=== PATIENT | male | born 1960 | race Caucasian/White ===

== ENCOUNTER 2023-06-14 19:47 | Outpatient (OUT) | payer BC, SELFPAY | END 2023-06-14 19:48 | disposition home or self-care (01) | LOC: SLEEP 19:48 | PROVIDERS: PCP Psychiatry & Neurology Neurology; Visit Provider Psychiatry & Neurology Neurology | DX: G47.33 Obstructive sleep apnea (adult) (pediatric) (principal) | CPT/HCPCS: 95810 ==

== ENCOUNTER 2023-06-21 19:53 | Outpatient (OUT) | payer BC, SELFPAY ==
--- OUTSIDE RECORDS SUMMARY | 2023-06-21 19:58 | XMS_ITS | CCD ---
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 seconds. 5. Repeat as told by your health care provider. Repeat this exercise daily as told by your health care provider. Continue to do this exercise for at least 4?6 weeks, or for as long as told by your health care provider. You may be referred to a physical therapist who can help you learn more about how to do Kegel exercises. Depending on your condition, your health care provider may recommend: ? Varying how long you squeeze your muscles. ? Doing several sets of exercises every day. ? Doing exercises for several weeks. ? Making Kegel exercises a part of your regular exercise routine. This information is not intended to replace advice given to you by your health care provider. Make sure you discuss any questions you have with your health care provider. Document Revised: 08/07/2021 Document Reviewed: 08/07/2021 [employer] Patient Education ? 2022 [place]. Oncology Prostate Cancer Screening Prostate cancer screening is testing that is done to check for the presence of prostate cancer in men. The prostate gland is a walnut-sized gland that is located below the bladder and in front of the rectum in males. The function of the prostate is to add fluid to semen during ejaculation. Prostate cancer is one of the most common types of cancer in men. Who should have prostate cancer screening? Screening recommendations vary based on age and other risk factors, as well as between the professional organizations who make the recommendations. In general, screening is recommended if: ? You are age 50 to 70 and have an average risk for prostate cancer. You should talk with your health care provider about your need for screening and how often screening should be done. Because most prostate cancers are slow growing and will not cause , screening in this age group is generally reserved for men who have a 10- to 15-year life expectancy. ? You are younger than age 50, and you have these risk factors: ? Having a father, brother, or uncle who has been diagnosed with prostate cancer. The risk is higher if your family member's cancer occurred at an early age or if you have multiple family members with prostate cancer at an early age. ? Being a male who is Black or is of Ariel or sub-Saharan descent. In general, screening is not recommended if: ? You are younger than age 40. ? You are between the ages of 40 and 49 and you have no risk factors. ? You are 70 years of age or older. At this age, the risks that screening can cause are greater than the benefits that it may provide. If you are at high risk for prostate cancer, your health care provider may recommend that you have screenings more often or that you start screening at a younger age. How is screening for prostate cancer done? The recommended prostate cancer screening test is a blood test called the prostate-specific antigen (PSA) test. PSA is a protein that is made in the prostate. As you age, your prostate naturally produces more PSA. Abnormally high PSA levels may be caused by: ? Prostate cancer. ? An enlarged prostate that is not caused by cancer (benign prostatic hyperplasia, or BPH). This condition is very common in older men. ? A prostate gland infection (prostatitis) or urinary tract infection. ? Certain medicines such as male hormones (like gema (more content not included)... Normal [facility] Urology Office/Clinic Noteon 04-28-2023 Urology Office/Clinic Note Chief Complaint 1 year F/U with PSA HPI Staff 63 year old male here for 1 month with PSA. Previous DX: prostate cancer and ED. S/P RALP done 02/26/23, TRUS/BX done 10/16/22. Pt. taking Cialis 2.5mg daily. Stopped taking a week and a half ago, because his back was hurting him when he stopping taking this the pain went away PSA <0.1 done 04/19/23 Previous PSA 5.80 done 08/24/22. IPSS 17 MARIEL 1 Dysuria: _denies Incomplete bladder emptying: denies Hematuria: denies visible blood Frequency: every hour Urgency: _denies Nocturia: every hour nightly Stream: denies hesitation, normal stream Leaking: yes Post void dripping: a little bit Wearing pads/ Depends: pads wore daily changes every 1-2 hours Urge incontinence: _denies Stress incontinence: _yes Incontinence without Sensory Awareness: _denies Abdominal pain: _denies Flank pain: denies Sexual complaints: denies History of Present Illness Tests reviewed: reviewed UA, PSA I have reviewed the previous health record information and history for this patient from Dr. Perez. I have reviewed and verified the staff HPI to be accurate for this encounter. Review of Systems PHQ Score Initial Depression Screen Score: 0 SCORE ROS - Provider Constitutional: denies weight loss, denies hot flashes. Eyes: denies eye problems. Gastrointestinal: denies nausea, denies vomiting. Cardiovascular: denies chest pain or angina. Integumentary: no dryness Musculoskeletal: denies musculoskeletal symptoms. ENMT: denies otolaryngeal symptoms. Respiratory: no shortness of breath. Heme/Lymph: denies easy bleeding tendency, denies easy bruising tendency. Psychiatric: no confusion, no anxiety. Genitourinary: See HPI. Physical Exam Vitals & Measurements BP: 128/84 HT: 72 in HT: 182 cm WT: 132 kg WT: 290.4 lb BMI: 39.85 General Appearance: alert, no distress, well nourished, well developed male. Genitourinary: Flank Pain: none. Bladder: nonpalpable. Assessment/Plan 63 yo male with history of morbid obesity (BMI 40) patient of Dr. Ardon with favorable intermediate risk prostate cancer, cT2a, grade group 2, +5/15 cores including region of interest in the left peripheral zone at the mid gland, initial PSA 5.8 s/p RALP, BLPND 03/08/23. Pt is here with his today. 1. Prostate cancer (C61: Malignant neoplasm of prostate) PSA: 01/2022 - 4.60 05/11/22 - 4.80 & 13% 08/25/22 - 5.80 12/07/22 - 6.73 04/19/23 - <0.1 ALVINO 08/18/22 - 30-35 gms, Soft nodule at Lt base of prostate. MRI of prostate 09/28/22 - PI-RADS 4 - posterior aspect of the L peripheral zone at the level of the midgland measuring 13 x 7 mm. 47 cc prostate. S/p TRUS/bx 10/16/[address] Ardon- Initial path: GG1 in 4 cores including NIKOS Upstaged pathology through [facility] - [place] 7 (3+4), GG2 in 2 cores including NIKOS and GS 6, GG1 in 3 cores. 5/15 cores positive. Decipher testing - high risk. S/p RALP, BPLND 03/08/23 Pathology: pT2 N0Mx prostate acinar adenocarcinoma, Aidee score 3+4=7 Grade group 2 bilateral, involving approx 20% of the prostate tissue, focal cribriform pattern identified, +perineal invasion, negative margins, no EPE or SV invasion. Cystogram 03/15/23 positive for small contrast extravasation posterior left urethra. Repeat cystogram 03/22/23 near complete resolution of contrast extravasation however there is minimal persistence of contrast extravasation from the region of the prostatic urethra on the right. 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 Normal contour of urinary bladder without filling defect. Post void images demonstrate near complete excretion of contrast. -Crystal removed in office 03/29/23, voided all 100cc filled Today we discussed the PSA results. Advised pt current level is undetectable. Will continue to monitor. Discussed pt can f/u in 3 mos w/ a partner in our practice vs f/u in 6 mos to check PSA. Pt prefers close f/u in 3 mos. -PSA in 3 mos w/ [facility] (while on leave). I can see pt in 6 months for continued postop care. If PSA undetectable, cpnt PSA q6m Ordered: [id number] Measure Post Void residual urine and/or bladder capacity by US- non-imaging PSA Total 2. ED (erectile dysfunction) (N52.9: Male erectile dysfunction, unspecified) MARIEL 1 (12). Started on Cialis 2.5mg qd at prior OV. States he stopped taking this 1wk ago due to back pain. Re-discussed penile rehab and [facility] options. Discussed baseline ED, additional contributing factors (DM2, obesity, etc) and need for PDE-5i and [facility] to prevent loss length/girth. Lowest dose of Cialis. -Pt may retry cialis to ensure truly causing back pain (multiple reasons for this) -Penile rehab with [facility] Ordered: [id number] Measure Post Void residual urine and/or bladder capacity by US- non-imaging 3. Mixed incontinence (N39.46: Mixed incontinence) PVR today 177mL (none prior). IPSS 17 today (more content not included)... Normal [facility] Comment on above: Result Comment: Elec tronically Signed By: Chana Perez MD\.br\Date and Time Signed: 04/28/23 10:45 EST\.br\Electronically Co-Signed By: Leslie Powell\.br\Date and Time Co-Signed: 04/28/23 10:27 EST Pathology Noteon 04-26-2023 Pathology Note [id number]#[id number] Normal [facility] CHEMISTRYOrdered By: Tracey jamison on 04-19-2023 PSA Total ng/mL Low 0.1 - 3.5 ng/mL [facility] Chem S Comment on above: Interpretive Data: T he concentration of PSA determined by different manufacturers can vary due to differences in assay methods and reagent specificity. Values obtained from different assay methods cannot be used interchangeably. The methodology used for this result was chemiluminescence using [employer] PSA reagent. Consent for Treatmenton Consent for Treatment [id number] Normal [facility] PSA Totalon 04-19-2023 PSA Total <0.1 Low 0.1-3.5 [facility] Comment on above: Result Comment: The concentration of PSA determined by different manufacturers can vary due to differences in assay methods and reagent specificity. Values obtained from different assay methods cannot be used interchangeably. The methodology used for this result was chemiluminescence using [employer] PSA reagent. Performed By: #### 2 [id number], [id number] #### [facility] [address] [place] [address] Pathology Noteon 04-16-2023 Pathology Note [id number] [facility] Transfer Inon 04-01-2023 Transfer In [id number]#[id number] [facility] Formson 03-30-2023 Forms [id number]#[id number] [facility] Ambulatory Visit Summaryon 1 05-30-2022 Ambulatory Visit Summary EVELIA IBARRA :1960 Visit Date:03/29/2023 Ambulatory Visit Instructions Your Diagnosis Prostate cancer ED (erectile dysfunction) Your Care Team Attending Physician - Chana Perez MD Primary Care Physician - ELI Powell, LORRAINE Blanca This Is Your Medications List sulfamethoxazole-trimethop rim (Bactrim D.S. 800 mg-160 mg Tab) tadalafil (Cialis 2.5 mg oral tablet) Contact prescribing physician if questions or concerns amlodipine-atorvastatin (amLODIPine-atorvastatin 5 mg-40 mg Tab) dapagliflozin (Farxiga 10 mg oral tablet) ibuprofen (ibuprofen 600 mg Tab) metformin (metformin 500 mg Tab) rosuvastatin (rosuvastatin 10 mg Tab) [Image Removed: STOP]Stop taking these medications oxybutynin (oxybutynin 5 mg ER Tab) Procedures Performed Prostatectomy using robotic assistance (03/08/2023), Arthroplasty of knee (08/14/2020), Cholecystectomy, Colonoscopy, Excision of lesion of sweat gland. Discharge Vitals Heart Rate (Peripheral) 92 Blood Pressure 130/64 Height 72 in Height 182 cm Weight 290.4 lb Weight 132 kg BMI 39.85 What to do next Scheduled Follow-Up Appointments Wednesday 9:45 AM EST With: Chana Perez MD Where: [facility] Consent for Treatmenton 03-12 Consent for Treatment [id number] [facility] Patient Educationon 03-29-20 23 Patient Education Oncology Prostate Cancer The prostate is a small gland that produces fluid that makes up semen (seminal fluid). It is located below the bladder in men, in front of the rectum. Prostate cancer is the abnormal growth of cells in the prostate gland. What are the causes? The exact cause of this condition is not known. What increases the risk? You are more likely to develop this condition if: ? You are 65 years of age or older. ? You have a family history of prostate cancer. ? You have a family history of breast and ovarian cancer. ? You have genes that are passed from parent to child (inherited), such as BRCA1 and BRCA2. ? You have Christian syndrome. men and men of descent are diagnosed with prostate cancer at higher rates than other men. The reasons for this are not well understood and are likely due to a combination of genetic and environmental factors. What are the signs or symptoms? Symptoms of this condition include: ? Problems with urination. This may include: ? A weak or interrupted flow of urine. ? Trouble starting or stopping urination. ? Trouble emptying the bladder all the way. ? The need to urinate more often, especially at night. ? Blood in urine or semen. ? Persistent pain or discomfort in the lower back, lower abdomen, or hips. ? Trouble getting an erection. ? Weakness or numbness in the legs or feet. How is this diagnosed? This condition can be diagnosed with: ? A digital rectal exam. For this exam, a health care provider inserts a gloved finger into the rectum to feel the prostate gland. ? A blood test called a prostate-specific antigen (PSA) test. ? A procedure in which a sample of tissue is taken from the prostate and checked under a microscope (prostate biopsy). ? An imaging test called transrectal ultrasonography. Once the condition is diagnosed, tests will be done to determine how far the cancer has spread. This is called staging the cancer. Staging may involve imaging tests, such as a bone scan, CT scan, PET scan, or MRI. Stages of prostate cancer The stages of prostate cancer are as follows: ? Stage 1 (I). At this stage, the cancer is found in the prostate only. The cancer is not visible on imaging tests, and it is usually found by accident, such as during prostate surgery. ? Stage 2 (II). At this stage, the cancer is more advanced than it is in stage 1, but the cancer has not spread outside the prostate. ? Stage 3 (III). At this stage, the cancer has spread beyond the outer layer of the prostate to nearby tissues. The cancer may be found in the seminal vesicles, which are near the bladder and the prostate. ? Stage 4 (IV). At this stage, the cancer has spread to other parts of the body, such as the lymph nodes, bones, bladder, rectum, liver, or lungs. Prostate cancer grading Prostate cancer is also graded according to how the cancer cells look under a microscope. This is called the Aidee score and the total score can range from 6?10, indicating how likely it is that the cancer will spread (metastasize) to other parts of the body. The higher the score, the greater the likelihood that the cancer will spread. ? Aidee 6 or lower: This indicates that the cancer cells look similar to normal prostate cells (well differentiated). ? Aidee 7: This indicates that the cancer cells look somewhat similar to normal prostate cells (moderately differentiated). ? Aidee 8, 9, or 10: This indicates that the cancer cells look very different than normal prostate cells (poorly differentiated). How is this treated? Treatment for this condition depends on several factors, including the stage of the cancer, your age, personal preferences, and your overall health. Talk with your health care provider about treatment options that are recommended for you. Common treatments include: ? Observation for early stage prostate cancer (active surveillance). This involves having exams, blood tests, and in some cases, more biopsies. For some men, this is the only treatment needed. ? Surgery. Types of surgeries include: ? Open surgery (radical prostatectomy). In this surgery, a larger incision is made to remove the prostate. ? A laparoscopic radical prostatectomy. This is a surgery to remove the prostate and lymph nodes through several small incisions. It is often referred to as a minimally invasive surgery. ? A robotic radical prostatectomy. This is laparoscopic surgery to remove the prostate and lymph nodes with the help of robotic arms that are controlled by the surgeon. ? Cryoablation. This is surgery to freeze and destroy cancer cells. ? Radiation treatment. Types of radiation treatment include: ? External beam radiation. This type aims beams of radiation from outside the body at the prostate to destroy cancerous cells. ? Brachytherapy. This type uses radioactive needles, seeds, wires, or tubes that are implanted into the prostate gland. Like external be (more content not included)... Normal [facility] Urology Office/Clinic Noteon 03-29-2023 Urology Office/Clinic Note Chief Complaint 1 wk fu HPI Staff 62 year old male here for 1 week follow up with possible cath removal- Patient is po RALP 11/17/23 Patient denies any gross hematuria with catheter, states that it has been draining well. Does state that he is having pretty severe irritation at the tip of the penis from the catheter History of Present Illness Tests reviewed: reviewed cystogram. I have reviewed the previous health record information and history for this patient from Dr. Perez. I have reviewed and verified the staff HPI to be accurate for this encounter. There have been no associated fever, chills, flank pain, or blood in the urine. Denies any urinary infections since last encounter. Review of Systems PHQ Score Initial Depression Screen Score: 0 SCORE ROS - Provider Constitutional: denies weight loss, denies hot flashes. Eyes: denies eye problems. Gastrointestinal: denies nausea, denies vomiting. Cardiovascular: denies chest pain or angina. Integumentary: no dryness Musculoskeletal: denies musculoskeletal symptoms. ENMT: denies otolaryngeal symptoms. Respiratory: no shortness of breath. Heme/Lymph: denies easy bleeding tendency, denies easy bruising tendency. Psychiatric: no confusion, no anxiety. Genitourinary: See HPI. Physical Exam Vitals & Measurements HR: 92(Peripheral) BP: 130/64 HT: 72 in HT: 182 cm WT: 132 kg WT: 290.4 lb BMI: 39.85 General Appearance: alert, no distress, well nourished, well developed male. Genitourinary: Flank Pain: none. Bladder: nonpalpable. Assessment/Plan 63-year-old male with history of morbid obesity (BMI 40) patient of Dr. Ardon with favorable intermediate risk prostate cancer, cT2a, grade group 2, +5/15 cores including region of interest in the left peripheral zone at the mid gland, initial PSA 5.8 s/p RALP, BLPND 03/08/23. Portions of this record may have been created with voice recognition artificial intelligence software, specifically [employer] and or [employer]. Substitutions may have occurred due to the inherent limitations of voice recognition and artificial intelligence software. 1. Prostate cancer (C61: Malignant neoplasm of prostate) PSA: 01/2022 - 4.60 05/11/22 - 4.80 & 13% 08/25/22 - 5.80 [2] ALVINO 08/18/22 - 30-35 gms, Soft nodule at Lt base of prostate. [3] MRI of prostate 09/28/22 - PI-RADS 4 - posterior aspect of the L peripheral zone at the level of the midgland measuring 13 x 7 mm.[1] 47 cc prostate. S/p TRUS/bx 10/16/[address] Ardon- Initial path: GG1 in 4 cores including NIKOS Upstaged pathology through [facility] - [place] 7 (3+4), GG2 in 2 cores including NIKOS and GS 6, GG1 in 3 cores. 5/[address] Spears ordered Decipher testing - high risk. S/p RALP, BPLND 03/08/23 - Pathology: pT2 N0Mx prostate acinar adenocarcinoma, [place] score 3+4=7 Grade group 2 bilateral, involving approx 20% of the prostate tissue, focal cribriform pattern identified, +perineal invasion, negative margins, no EPE or SV invasion. Cystogram 03/15/23 positive for small contrast extravasation posterior left urethra. Repeat cystogram 03/22/23 near complete resolution of contrast extravasation however there is minimal persistence of contrast extravasation from the region of the prostatic urethra on the right. Pt presented to [facility] 03/20/23 w/ gross hematuria and clots in his crystal bag. Pt asked about genetic testing, discussed indicated if disease would metastasize. 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 Normal contour of urinary bladder without filling defect. Post void images demonstrate near complete excretion of contrast. -Crystal removed in office today, no complications, voided all 100cc filled Pt brought in family hx records. Hx does not seem contributory to pt's diagnosis. -Start Bactrim DS BID x 2 days prophy for crystal removal today -Cont restrictions. No heavy lifting for 3 more weeks -Timed voids, stool softeners, kegel exercises - Follow up in 1 month w/ PSA. Ordered: tadalafil, 2.5 mg = 1 tab(s), Oral, Daily, # 30 tab(s), Refills(s) 11, Pharmacy: [id number], 182, cm, 03/29/23 14:15:00 EST, Height/Length Dosing, 132, kg, 03/29/23 14:15:00 EST, Weight Dosing PSA Total XR Cystography Minimum 3 Views 2. ED (erectile dysfunction) (N52.9: Male erectile dysfunction, unspecified) MARIEL 12 - not a priority pre op Pt states he took Cialis in the past and experienced severe back pain. Unsure of dosage. States it was prescribed after a previous surgery and he took it daily. Risk and benefits of medication discussed for penile rehab. Patient would like to try. -Penile rehab literature provided today, [facility] literature provided -Start Cialis 2.5 mg daily. Ordered: tadalafil, 2.5 mg = 1 tab(s), Oral, Daily, # 30 tab(s), Refills(s) 11, Pharmacy: [id number] (more content not included)... Normal [facility] Comment on above: Result Comment: Elec tronically Signed By: Chana Perez MD\.br\Date and Time Signed: 03/29/23 16:57 EST\.br\Electronically Co-Signed By: Anna Tyler\.br\Date and Time Co-Signed: 03/29/23 15:13 EST XR Cystography Minimum 3 Vie wson 03-29-2023 XR Cystography Minimum 3 Views Exam Date/Time: 03/29/2023 10:19 EST Reason for Exam: C61;Other (please specify) Report IMPRESSION: TINY FOCUS OF CONTRAST PROJECTING OVER THE REGION OF THE PROSTATIC URETHRA TO THE RIGHT HAS NOT SIGNIFICANTLY CHANGED. WHILE THIS MAY REPRESENT A TINY FOCUS OF CONTRAST EXTRAVASATION, GIVEN LACK OF CHANGE URETHRAL DIVERTICULUM IS ALSO CONSIDERED. EXAMINATION: XR Cystography Minimum 3 Views HISTORY: History of prostatectomy. COMPARISON: Cystogram 03/22/2023 and 03/15/2023 TECHNIQUE: [facility] view of the pelvis was obtained. This was followed by injection of Isovue-300 acquisition of a frontal view, bilateral oblique views, and a frontal post void view. 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 Normal contour of urinary bladder without filling defect. Post void images demonstrate near complete excretion of contrast. Ordering Provider: Chana Perez FINAL REPORT Dictated: 03/29/2023 12:52 pm Tomer Gazra DO Signed (Electronic Signature): 03/29/2023 12:52 pm Signed by: Tomer Garza DO Transcribed by: NOAM Technologist: CAROLYN Technical Comments Contrast: Isovue 300 Contrast amount in ml's: 75 Radiation Dose: Ka,r in mGy = 55.60 DAP = 2182.33 [facility] Ambulatory Visit Summaryon 1 05-23-2022 Ambulatory Visit Summary EVELIA IBARRA :1960 Visit Date:03/22/2023 Ambulatory Visit Instructions Your Diagnosis Prostate cancer Your Care Team Attending Physician - Chana Perez MD Primary Care Physician - ELI Powell, LORRAINE Blanca This Is Your Medications List levofloxacin (Levaquin 500 mg Tab) Contact prescribing physician if questions or concerns amlodipine-atorvastatin (amLODIPine-atorvastatin 5 mg-40 mg Tab) dapagliflozin (Farxiga 10 mg oral tablet) ibuprofen (ibuprofen 600 mg Tab) metformin (metformin 500 mg Tab) oxybutynin (oxybutynin 5 mg ER Tab) rosuvastatin (rosuvastatin 10 mg Tab) Procedures Performed Prostatectomy using robotic assistance (03/08/2023), Arthroplasty of knee (08/14/2020), Cholecystectomy, Colonoscopy, Excision of lesion of sweat gland. Discharge Vitals Blood Pressure 120/83 Height 182 cm Height 72 in Weight 132 kg Weight 290.4 lb BMI 39.85 What to do next Scheduled Follow-Up Appointments Wednesday 2:00 PM EST With: Chana Perez MD Where: [facility] Consent for Treatmenton 03-12 Consent for Treatment [id number] [facility] Patient Educationon 03-22-20 Patient Education Oncology Prostate Cancer The prostate is a small gland that produces fluid that makes up semen (seminal fluid). It is located below the bladder in men, in front of the rectum. Prostate cancer is the abnormal growth of cells in the prostate gland. What are the causes? The exact cause of this condition is not known. What increases the risk? You are more likely to develop this condition if: ? You are 65 years of age or older. ? You have a family history of prostate cancer. ? You have a family history of breast and ovarian cancer. ? You have genes that are passed from parent to child (inherited), such as BRCA1 and BRCA2. ? You have Christian syndrome. men and men of descent are diagnosed with prostate cancer at higher rates than other men. The reasons for this are not well understood and are likely due to a combination of genetic and environmental factors. What are the signs or symptoms? Symptoms of this condition include: ? Problems with urination. This may include: ? A weak or interrupted flow of urine. ? Trouble starting or stopping urination. ? Trouble emptying the bladder all the way. ? The need to urinate more often, especially at night. ? Blood in urine or semen. ? Persistent pain or discomfort in the lower back, lower abdomen, or hips. ? Trouble getting an erection. ? Weakness or numbness in the legs or feet. How is this diagnosed? This condition can be diagnosed with: ? A digital rectal exam. For this exam, a health care provider inserts a gloved finger into the rectum to feel the prostate gland. ? A blood test called a prostate-specific antigen (PSA) test. ? A procedure in which a sample of tissue is taken from the prostate and checked under a microscope (prostate biopsy). ? An imaging test called transrectal ultrasonography. Once the condition is diagnosed, tests will be done to determine how far the cancer has spread. This is called staging the cancer. Staging may involve imaging tests, such as a bone scan, CT scan, PET scan, or MRI. Stages of prostate cancer The stages of prostate cancer are as follows: ? Stage 1 (I). At this stage, the cancer is found in the prostate only. The cancer is not visible on imaging tests, and it is usually found by accident, such as during prostate surgery. ? Stage 2 (II). At this stage, the cancer is more advanced than it is in stage 1, but the cancer has not spread outside the prostate. ? Stage 3 (III). At this stage, the cancer has spread beyond the outer layer of the prostate to nearby tissues. The cancer may be found in the seminal vesicles, which are near the bladder and the prostate. ? Stage 4 (IV). At this stage, the cancer has spread to other parts of the body, such as the lymph nodes, bones, bladder, rectum, liver, or lungs. Prostate cancer grading Prostate cancer is also graded according to how the cancer cells look under a microscope. This is called the Aidee score and the total score can range from 6?10, indicating how likely it is that the cancer will spread (metastasize) to other parts of the body. The higher the score, the greater the likelihood that the cancer will spread. ? Aidee 6 or lower: This indicates that the cancer cells look similar to normal prostate cells (well differentiated). ? Virden 7: This indicates that the cancer cells look somewhat similar to normal prostate cells (moderately differentiated). ? Aidee 8, 9, or 10: This indicates that the cancer cells look very different than normal prostate cells (poorly differentiated). How is this treated? Treatment for this condition depends on several factors, including the stage of the cancer, your age, personal preferences, and your overall health. Talk with your health care provider about treatment options that are recommended for you. Common treatments include: ? Observation for early stage prostate cancer (active surveillance). This involves having exams, blood tests, and in some cases, more biopsies. For some men, this is the only treatment needed. ? Surgery. Types of surgeries include: ? Open surgery (radical prostatectomy). In this surgery, a larger incision is made to remove the prostate. ? A laparoscopic radical prostatectomy. This is a surgery to remove the prostate and lymph nodes through several small incisions. It is often referred to as a minimally invasive surgery. ? A robotic radical prostatectomy. This is laparoscopic surgery to remove the prostate and lymph nodes with the help of robotic arms that are controlled by the surgeon. ? Cryoablation. This is surgery to freeze and destroy cancer cells. ? Radiation treatment. Types of radiation treatment include: ? External beam radiation. This type aims beams of radiation from outside the body at the prostate to destroy cancerous cells. ? Brachytherapy. This type uses radioactive needles, seeds, wires, or tubes that are implanted into the prostate gland. Like external be (more content not included)... Normal [facility] Urology Office/Clinic Noteon 03-22-2023 Urology Office/Clinic Note Chief Complaint 1 wk fu HPI Staff 1 week follow up with repeat cystogram and possible cath removal- Patient is po RALP 02/26/23 patient was seen at [facility] on 03/20 due to gross hematuria Patient states that the blood comes and goes- states it started darker and did get steinberg red color History of Present Illness Tests reviewed: reviewed cystogram. I have reviewed the previous health record information and history for this patient from Dr. Perez. I have reviewed and verified the staff HPI to be accurate for this encounter. There have been no associated fever, chills, flank pain. Denies any urinary infections since last encounter. Review of Systems PHQ Score Initial Depression Screen Score: 0 SCORE ROS - Provider Constitutional: denies weight loss, denies hot flashes. Eyes: denies eye problems. Gastrointestinal: denies nausea, denies vomiting. Cardiovascular: denies chest pain or angina. Integumentary: no dryness Musculoskeletal: denies musculoskeletal symptoms. ENMT: denies otolaryngeal symptoms. Respiratory: no shortness of breath. Heme/Lymph: denies easy bleeding tendency, denies easy bruising tendency. Psychiatric: no confusion, no anxiety. Genitourinary: See HPI. Physical Exam Vitals & Measurements BP: 120/83 HT: 72 in HT: 182 cm WT: 132 kg WT: 290.4 lb BMI: 39.85 General Appearance: alert, no distress, well nourished, well developed male. Genitourinary: Flank Pain: none. Bladder: nonpalpable. Assessment/Plan 62-year-old male with history of morbid obesity (BMI 40) patient of Dr. Ardon with recently diagnosed favorable intermediate risk prostate cancer, cT2a, grade group 2, +5/15 cores including region of interest in the left peripheral zone at the mid gland, initial PSA 5.8 s/p RALP, BLPND 03/08/23. Portions of this record may have been created with voice recognition artificial intelligence software, specifically [employer] and or [employer]. Substitutions may have occurred due to the inherent limitations of voice recognition and artificial intelligence software. 1. Prostate cancer (C61: Malignant neoplasm of prostate) PSA: 01/2022 - 4.60 05/11/22 - 4.80 & 13% 08/25/22 - 5.80 [2] ALVINO 08/18/22 - 30-35 gms, Soft nodule at Lt base of prostate. [3] MRI of prostate 09/28/22 - PI-RADS 4 - posterior aspect of the L peripheral zone at the level of the midgland measuring 13 x 7 mm.[1] 47 cc prostate. S/p TRUS/bx 10/16/[address] Ardon- Initial path: GG1 in 4 cores including NIKOS Upstaged pathology through [facility] - Virden 7 (3+4), GG2 in 2 cores including NIKOS and GS 6, GG1 in 3 cores. 5/[address] Spears ordered Decipher testing - high risk. S/p RALP, BPLND 03/08/23 - Pathology: pT2 N0Mx prostate acinar adenocarcinoma, Aidee score 3+4=7 Grade group 2 bilateral, involving approx 20% of the prostate tissue, focal cribriform pattern identified, +perineal invasion, negative margins, no EPE or SV invasion. Cystogram 03/15/23 positive for small contrast extravasation posterior left urethra. Repeat cystogram 03/22/23 near complete resolution of contrast extravasation however there is minimal persistence of contrast extravasation from the region of the prostatic urethra on the right. New STAT REYES applied at last visit, however pt states it broke. Pt provided more STAT REYES's today. Pt was started on Levaquin 500mg qd x 7 days last visit, completing course yet. Denies SEs. Pt presented to [facility] 03/20/23 w/ gross hematuria and clots in his crystal bag. Has been noticing leakage around catheter, especially after having a bowel movement. Pt to continue stool softeners and to try to avoid pushing when having a bowel movement. Pt asked about genetic testing, discussed indicated if disease would metastasize. Notes hip/leg pain BL laterally, no swelling. Right hand and feet are numb. Could be positional or due to diabetes. Pt to continue to remain active and walk at least 3x per day. -Cont restrictions. No heavy lifting x 6 wks -Apply KY jelly to tip of penis -Increase water intake -Oxybutynin prn -Keep catheter secure to avoid tugging, catheter to remain in place for one more week given minimal persistence of leak on cystogram -PSA 6-8 weeks from RALP Follow up in 1 week. Catheter to remain in place for the time being. Tight DM control. Follow-up With When Contact Information Chris JOHNSON, Chana Singh, URL, URO Additional Instructions: 1 week Patient Education Prostate Cancer I, Anna Jayson, personally scribed for Dr. Perez on 03/22/2023 13:55:07. . Documentation recorded by the scribe, Anna Tyler, accurately reflects the services(s) I performed and decisions made by me. Authenticated by Dr. Perez on 03/22/2023 17:46:30. 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 Normal [facility] Comment on above: Result Comment: Elec tronically Signed By: Chana Perez MD\.br\Date and Time Signed: 03/22/23 17:46 EST\.br\Electronically Co-Signed By: Anna Tyler\.br\Date and Time Co-Signed: 03/22/23 13:56 EST XR Cystography Minimum 3 Vie wson 03-22-2023 XR Cystography Minimum 3 Views Exam Date/Time: 03/22/2023 09:33 EST Reason for Exam: C61;Other (please specify) Report IMPRESSION: NEAR COMPLETE RESOLUTION OF CONTRAST EXTRAVASATION HOWEVER THERE IS MINIMAL PERSISTENCE OF CONTRAST EXTRAVASATION FROM THE REGION OF THE PROSTATIC URETHRA ON THE RIGHT. EXAMINATION: XR Cystography Minimum 3 Views HISTORY: History of prostate cancer. History of contrast extravasation from the prostatic urethra. COMPARISON: Cystography 03/15/2023 TECHNIQUE: [facility] view of the pelvis was obtained. This was followed by injection of approximately 200 mL of a mixture of normal saline and Isovue-300 and acquisition of a frontal view, bilateral oblique views, and a frontal post void view of the urinary bladder. FINDINGS: Significant improvement of contrast extravasation with persistent extravasation of a minimal amount of contrast from the region of the prosthetic urethra on the right. Normal contour of the urinary bladder, without filling defect. Post void images demonstrate complete excretion of contrast. Ordering Provider: Chana Perez FINAL REPORT Dictated: 03/22/2023 11:06 am Tomer Garza DO Signed (Electronic Signature): 03/22/2023 11:06 am Signed by: Tomer Garza DO Transcribed by: NOAM Technologist: SHAMA Technical Comments Contrast: Isovue 300 Contrast amount in ml's: 100 Radiation Dose: Kar in mGy = 48.80 DAP = 2112.65 Normal [facility] Consent for Treatmenton -0 Consent for Treatment [id number] Normal [facility] Discharge Instructionson Discharge Instructions [id number] Normal [facility] ED Clinical Summaryon 2022 ED Clinical Summary (Inserted Image. Capri ble to display) [place] [id number] ED Clinical Summary Person Information Name: EVELIA IBARRA Claudia/[facility] Age: 62 Years : 1960 Sex: Male Language: Estonian PCP: LORRAINE Aleman Marital Status: Visit Id: Visit Reason: Catheter check; Hematuria; BLEEDING INTO CATH BAG Speciality: Acuity: 3 Enc Type: Emergency Med Service: Emergency Arrival: 03/20/2023 13:35:42 Discharge: 03/20/2023 16:24:34 LOS: 000 02:49 Checkin: 03/20/2023 13:35:42 Checkout: 03/20/2023 16:24:34 Dispo Type: Home (Routine DC) EVENTS: Event Name Event Status Request Date/Time Start Date/Time Complete Date/Time Arrive Complete 03/20/2023 13:35:42 03/20/2023 13:35:42 03/20/2023 13:35:42 Document Home Meds Request 03/20/2023 13:35:42 Triage Complete 03/20/2023 13:35:42 03/20/2023 13:46:55 03/20/2023 13:46:55 Bed Assign Complete 03/20/2023 13:41:06 03/20/2023 13:41:06 03/20/2023 13:41:06 Dr Exam Complete 03/20/2023 13:41:06 03/20/2023 13:56:40 03/20/2023 13:56:40 RN Exam Complete 03/20/2023 13:41:06 03/20/2023 15:39:28 03/20/2023 15:39:28 30 Day Return Request 03/20/2023 13:46:56 Registration Complete 03/20/2023 13:56:40 03/20/2023 14:02:56 03/20/2023 14:02:56 Reg Complete Request 03/20/2023 14:02:56 Reg Bed Request Complete 03/20/2023 14:02:56 03/20/2023 14:02:56 03/20/2023 14:02:56 Patient Care Request 03/20/2023 14:12:20 Pending Labs Complete 03/20/2023 14:12:20 03/20/2023 14:49:23 Lab Complete 03/20/2023 14:12:20 03/20/2023 14:49:23 Urine Collect Complete 03/20/2023 14:12:20 03/20/2023 14:49:23 Discharge Complete 03/20/2023 16:03:06 03/20/2023 16:24:39 03/20/2023 16:24:39 Transfer Complete 03/20/2023 16:24:39 03/20/2023 16:24:39 03/20/2023 16:24:39 ADDRESS: [address] [place] [id number] [facility] DOC NOTES: MEDICAL INFORMATION: Prescriptions Given: Medications to Continue with No Changes Other Medications amlodipine-atorvastatin (amLODIPine-atorvastatin 5 mg-40 mg Tab) 1 Tablets By Mouth every day. dapagliflozin (Farxiga 10 mg oral tablet) 1 Tablets By Mouth every day. ibuprofen (ibuprofen 600 mg Tab) 1 Tablets By Mouth every day as needed as needed for pain. levofloxacin (Levaquin 500 mg Tab) 1 Tablets By Mouth every 24 hours for 7 Days. Refills: 0. metformin (metformin 500 mg Tab) 1 Tablets By Mouth every day. oxybutynin (oxybutynin 5 mg ER Tab) 1 Tablets By Mouth every day as needed Urinary discomfort. 1 to 2 tabs as needed for bladder spasms/catheter irritation. Refills: 0. rosuvastatin (rosuvastatin 10 mg Tab) 1 Tablets every day. PATIENT EDUCATION INFORMATION: Instructions: Hematuria, Adult Follow up: With: Address: When: Chana Perez [address], [place] [address], [facility] [address] [place] [address] [phone] Business (1) In 2 days 03/22/2023 Comments: Make sure to follow-up with Dr. Og as discussed. Return to the emergency room if the blood in the Crystal catheter recurs and does not clear, the Crystal catheter stops draining, abdominal pain, fever or any new symptoms. With: Address: When: LORRAINE REYNOLDS [address] [place] [address] [phone] Business (1) In 3 days DIAGNOSIS: 1:Hematuria Normal [facility] ED Note-Physicianon 03-20-20 ED Note-Physician Basic Information Time Seen: Christina Cabrera M.D. 03/20/2023 13:56 Chief Complaint patient presents with blood in urine with small clots that started yesterday. states that he had surgery to remove prostate on 03/08. denies fever or chills. denies pain. denies contact with urologist. apt on wednesday to re-evaluate need for crystal History of Present Illness The patient is a 62-year-old male past medical history of diabetes mellitus, hypertension, prostate cancer status post prostatectomy who presented to the emergency room blood in urine. The patient states that he has Crystal catheter and yesterday he noted blood in urine. He states it cleared out and this morning after getting a haircut there was blood in the Crystal catheter bag which was much darker than yesterday. The patient states it feels like his bladder is full. He denies any fever, denies any chills. Denies any nausea, denies any vomiting. The patient denies taking any blood thinners. He denies any other associated symptoms. Review of Systems Additional ROS info: Except as noted in the above Review of Systems and in the History of Present Illness all other systems have been reviewed and are negative or noncontributory. Physical Exam Vitals & Measurements T: 36.8 ?C(Oral) HR: 106(Peripheral) RR: 16 BP: 126/73 SpO2: 98% HT: 182 cm WT: 132.8 kg BMI: 40.09 General: alert, no acute distress Skin: warm, dry Head: no trauma, normocephalic Neck: Trachea midline Eye: normal conjunctiva, sclera clear, Cardiovascular: regular rate and rhythm Respiratory: Lungs CTA, respirations non labored, breath sounds equal, Gastrointestinal: soft, non distended, no tenderness, no guarding Extremities: no deformity, no trauma Neurological: Alert and oriented, speech normal, no focal neuro deficits Psychiatric: cooperative, affect appropriate for age, Medical Decision Making MEDICAL DECISION MAKING Number and Complexity of Problems Differential Diagnosis: [] [facility] Data External documents reviewed: [] My EKG interpretation: [] My CT interpretation: [] My X-ray interpretation: [] My Ultrasound interpretation: [] Decision rules/scores evaluated: [] Discussed with: [] Treatment and Disposition ED Course: The patient presented with blood in the Crystal catheter bag. The Crystal catheter does have blood-tinged urine however there is a clear urine in the tube. Bladder scan revealed 43 mL of the urine in the bladder. The patient is afebrile. The urine shows no infection other than hematuria. Will discharge patient home follow-up with urology since his urine has cleared from blood. The patient will follow-up on Wednesday with urology. He is instructed to return to the emergency room if the blood in the bag recurs and does not clear, the Crystal catheter stops draining, fever or any new symptoms. Shared decision making: [] Code status: [] Assessment/Plan 1. Hematuria (R31.9: Hematuria, unspecified) Orders: Bladder Scan UA With Cult Reflex Disposition Plan Patient Discharge Condition Stable, improved Discharge Disposition Discharge home Discharge Prescription List Prescriptions No active prescription medications Follow-up With When Contact Information Chana Perez In 2 days 03/22/2023 EST [address], [address] [address]- [phone] Business (1) Additional Instructions: Make sure to follow-up with Dr. Og as discussed. Return to the emergency room if the blood in the Crystal catheter recurs and does not clear, the Crystal catheter stops draining, abdominal pain, fever or any new symptoms. 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 Medications Inpatient No active inpatient medications Home amLODIPine-atorvastatin 5 mg-40 mg Tab, 1 tab(s), Oral, Daily Farxiga 10 mg oral tablet, 10 mg= 1 tab(s), Oral, Daily ibuprofen 600 mg Tab, 600 mg= 1 tab(s), Oral, Daily, PRN Levaquin 500 mg Tab, 500 mg= 1 tab(s), Oral, q24hr metformin 500 mg Tab, 500 mg= 1 tab(s), Oral, Daily oxybutynin 5 mg ER Tab, 5 mg= 1 tab(s), Oral, Daily, PRN rosuvastatin 10 mg Tab, 10 mg= 1 tab(s), Daily Allergies penicillins (Unsure) Social History Alcohol Current, 1-2 times per month, 02/15/2023 Substance Abuse - Denies Substance Abuse, 07/30/2020 Tobacco Cigars, 02/15/2023 Cigars or pipes daily within last 30 days Tobacco Use:. Never Smokele (more content not included)... Normal [facility] Comment on above: Result Comment: Elec tronically Signed By: Deborah Hodgson, Christina Carney\.br\Date and Time Signed: 03/20/23 16:05 EST ED Patient Education Noteon 03-20-2023 ED Patient Education Note Urology Hematuria, Adult Hematuria is blood in the urine. Blood may be visible in the urine, or it may be identified with a test. This condition can be caused by infections of the bladder, urethra, kidney, or prostate. Other possible causes include: ? Kidney stones. ? Cancer of the urinary tract. ? Too much calcium in the urine. ? Conditions that are passed from parent to child (inherited conditions). ? Exercise that requires a lot of energy. Infections can usually be treated with medicine, and a kidney stone usually will pass through your urine. If neither of these is the cause of your hematuria, more tests may be needed to identify the cause of your symptoms. It is very important to tell your health care provider about any blood in your urine, even if it is painless or the blood stops without treatment. Blood in the urine, when it happens and then stops and then happens again, can be a symptom of a very serious condition, including cancer. There is no pain in the initial stages of many urinary cancers. Follow these instructions at home: Medicines ? Take kxnc-naj-ryzzctj and prescription medicines only as told by your health care provider. ? If you were prescribed an antibiotic medicine, take it as told by your health care provider. Do not stop taking the antibiotic even if you start to feel better. Eating and drinking ? Drink enough fluid to keep your urine pale yellow. It is recommended that you drink 3?4 quarts (2.8?3.8 L) a day. If you have been diagnosed with an infection, drinking cranberry juice in addition to large amounts of water is recommended. ? Avoid caffeine, tea, and carbonated beverages. These tend to irritate the bladder. ? Avoid alcohol because it may irritate the prostate (in males). General instructions ? If you have been diagnosed with a kidney stone, follow your health care provider's instructions about straining your urine to catch the stone. ? Empty your bladder often. Avoid holding urine for long periods of time. ? If you are female: ? After a bowel movement, wipe from front to back and use each piece of toilet paper only once. ? Empty your bladder before and after sex. ? Pay attention to any changes in your symptoms. Tell your health care provider about any changes or any new symptoms. ? It is up to you to get the results of any tests. Ask your health care provider, or the department that is doing the test, when your results will be ready. ? Keep all follow-up visits. This is important. Contact a health care provider if: ? You develop back pain. ? You have a fever or chills. ? You have nausea or vomiting. ? Your symptoms do not improve after 3 days. ? Your symptoms get worse. Get help right away if: ? You develop severe vomiting and are unable to take medicine without vomiting. ? You develop severe pain in your back or abdomen even though you are taking medicine. ? You pass a large amount of blood in your urine. ? You pass blood clots in your urine. ? You feel very weak or like you might faint. ? You faint. Summary ? Hematuria is blood in the urine. It has many possible causes. ? It is very important that you tell your health care provider about any blood in your urine, even if it is painless or the blood stops without treatment. ? Take oklp-kie-tpcgemb and prescription medicines only as told by your health care provider. ? Drink enough fluid to keep your urine pale yellow. This information is not intended to replace advice given to you by your health care provider. Make sure you discuss any questions you have with your health care provider. Document Revised: 11/27/2020 Document Reviewed: 11/27/2020 [employer] Patient Education ? 2022 [place]. Normal [facility] ED Patient Summaryon 023 ED Patient Summary (Inserted Image. Capri ble to display) [address] [address] Patient Discharge Instructions Person Information Name: EVELIA IBARRA Age: 62 Years Arrival Date: 03/20/2023 13:35:42 Discharge Diagnosis: 1:Hematuria Primary Care Physician: LORRAINE Aleman Provider Information Primary Provider: Christina Cabrera M.D. Advanced Molding Machine Operator:None The exam and treatment you received in the Emergency Department were for an urgent problem and are not intended as complete care. It is important that you follow up with a doctor, nurse practitioner, or physician?s expanded function dental assistant for ongoing care. If your symptoms become worse or you do not improve as expected and you are unable to reach your usual health care provider, you should return to the Emergency Department. We are available 24 hours a day. EVELIA IBARRA has been given the following list of patient education materials, prescriptions and follow-up instructions: Follow-up Instructions: With: Address: When: Chana Perez [address] [place] [address], [place] [phone] Business (1) In 2 days 03/22/2023 Comments: Make sure to follow-up with Dr. Og as discussed. Return to the emergency room if the blood in the Crystal catheter recurs and does not clear, the Crystal catheter stops draining, abdominal pain, fever or any new symptoms. With: Address: When: [place] [address] [phone] Business (1) In 3 days In the event that this physician does not participate in your insurance network, please consult with your insurance company to find a nearby participating provider. Patient Education Materials: Hematuria, Adult A MESSAGE TO ALL PATIENTS REGARDING OPIOIDS PRESCRIPTION OPIOIDS: WHAT YOU NEED TO KNOW Prescription opioids can be used to help relieve kfnowxzz-bs-jotvpb pain and are often prescribed following a surgery or injury, or for certain health conditions. These medications can be an important part of the treatment but also come with serious risks. It is important to work with your healthcare provider to make sure you are getting the safest, most effective care. WHAT ARE THE RISKS AND SIDE EFFECTS OF OPIOID USE? Prescription opioids carry serious risks of addiction and overdose, especially with prolonged use. An opioid overdose, often marked by slowed breathing, can cause sudden . The use of prescription opioids can have a number of side effects as well, even when taken as directed: ? Tolerance?meaning you might need to take more of the medication for the same pain relief ? Physical dependence?meaning you have symptoms of withdrawal when a medication is stopped ? Increased sensitivity to pain ? Constipation ? Nausea, vomiting, and dry mouth ? Sleepiness and dizziness ? Confusion ? Depression ? Low levels of testosterone that can result in lower sex drive, energy, and strength ? Itching and sweating RISKS ARE GREATER WITH: ? History of drug misuse, substance use disorder, or overdose ? Mental health conditions (such as depression or anxiety) ? Sleep apnea ? Older age (65 years and older) ? Avoid alcohol while taking prescription opioids. Also, unless specifically advised by your health care provider, medications to avoid include: ? Benzodiazepines (such as Xanax or Valium) ? Muscle relaxants (such as Soma or Flexeril) ? Hypnotics (such as Ambien or Lunesta) ? Other prescription opioids KNOW YOUR OPTIONS Talk to your health care provider about ways to manage your pain that don?t involve prescription opioids. Some of these options may actually work better and have fewer risks and side effects. Options may include: ? Pain relievers such as acetaminophen, ibuprofen, and naproxen ? Some medication that are also used for depression or seizures ? Physical therapy and exercise ? Cognitive behavioral therapy, a psychological, goal-directed approach, in which patients learn how to modify physical, behavioral, and emotional triggers of pain and stress. IF YOU ARE PRESCRIBED OPIOIDS FOR PAIN: ? Never take opioids in greater amounts or more often than prescribed. ? Follow up with your primary health care provider. o Work together to create a plan on how to manage your pain. o Talk about ways to help manage your pain that don?t involve prescription opioids. o Talk about any and all concerns and side effects. ? Help prevent misuse and abuse o Never sell or share prescription opioids. o Never use another person?s prescription opioids. ? Store prescription opioids in a secure place and out of reach of others (this may include visitors, children, friends, and family). ? Safely dispose of unused prescription opioids: Find your community drug take-back program or your pharmacy mail-back program, or flush them down the toilet, following guidance from the Food and D (more content not included)... Normal [facility] UA With Cult Reflexon 2022 Bacteria LM Ql (Urine sed) TRACE Normal Trace [facility] Comment on above: Performed By: #### 1 [id number] ####[facility] [address] [place] [address] Bilirubin Ql (U) Negative Normal Negative [facility] Comment on above: Performed By: #### 1 [id number] ####[facility] [address] [place] [address] Clarity (U) CLOUDY Abnormal Clear [facility] Comment on above: Performed By: #### 1 [id number] ####[facility] [address] [place] [address] Color (U) YELLOW Normal Yellow [facility] Comment on above: Performed By: #### 1 [id number] ####[facility] [address] [place] [address] Epithelial cells.squamous LM.HPF (Urine sed) [#/Area] 0-2 Normal 0-2 [facility] Comment on above: Performed By: #### 1 [id number] ####[facility] [address] [place] [address] Glucose Test strip (U) [Mass/Vol] 3+ Abnormal Negative [facility] Comment on above: Performed By: #### 1 [id number] ####[address] [address] Hemoglobin Ql (U) 3+ Abnormal Negative [facility] Comment on above: Performed By: #### 1 [id number] ####[address] [address] Ketones (U) [Mass/Vol] Negative Normal Negative [facility] Comment on above: Performed By: #### 1 [id number] ####[address] [address] [place].plasma/[place] .RBC (Bld) [Mass ratio] >30 Abnormal 0-3 [facility] Comment on above: Performed By: #### 1 [id number] ####[address] [address] Mucus Ql (Urine sed) TRACE Normal [facility] Comment on above: Performed By: #### 1 [id number] ####[address] [address] Nitrite Ql (U) Negative Normal Negative [facility] Comment on above: Performed By: #### 1 [id number] ####[address] [address] pH (U) 6.0 [pH] Invalid Interpretation Code 5.0-9.0 [facility] Comment on above: Performed By: #### 1 [id number] ####[address] [address] Protein (U) [Mass/Vol] Negative Normal Negative [facility] Comment on above: Performed By: #### 1 [id number] ####[address] [address] Specific gravity (U) [Rel density] <=1.005 Invalid Interpretation Code 1.005-1.03 0 [facility] Comment on above: Performed By: #### 1 [id number] ####[facility] [address] [place] [address] Type of Urine collection method Catheter Normal [facility] Comment on above: Performed By: #### 1 [id number] ####[facility] [address] [place] [address] Urobilinogen Qn (U) 0.2 {Roxana'U}/dL Normal 0.0-1.0 [facility] Comment on above: Performed By: #### 1 [id number] ####[facility] [address] [place] [address] WBC Auto Ql (U) Negative Normal Negative [facility] Comment on above: Performed By: #### 1 [id number] ####[facility] [address] [place] [address] WBC LM.HPF (Urine sed) [#/Area] 0-5 Normal 0-5 [facility] Comment on above: Performed By: #### 1 [id number] ####[facility] [address] [place] [address] URINALYSISOrdered By: Bassem Murphy on 03-20-2023 Bacteria LM Ql (Urine sed) Trace /HPF Normal Trace/HPF [facility] UA Auto SS Bilirubin Ql (U) Negative (03/20/23 2:28 PM) Normal Negative [facility] UA Auto SS Clarity (U) Cloudy *ABN* (03/20/23 2:28 PM) Invalid Interpretation Code Clear [facility] UA Auto SS Color (U) Yellow (03/20/23 2:28 PM) Normal Yellow [facility] UA Auto SS Epithelial cells.squamous LM.HPF (Urine sed) [#/Area] 0-2 /HPF Normal 0-2/HPF [facility] UA Auto SS Glucose Test strip (U) [Mass/Vol] 3+ *ABN* (03/20/23 2:28 PM) Invalid Interpretation Code Negative [facility] UA Auto SS Hemoglobin Ql (U) 3+ *ABN* (03/20/23 2:28 PM) Invalid Interpretation Code Negative [facility] UA Auto SS Ketones (U) [Mass/Vol] Negative (03/20/23 2:28 PM) Normal Negative [facility] UA Auto SS [place].plasma/[place] .RBC (Bld) [Mass ratio] >30 /HPF Invalid Interpretation Code 0-3/HPF [facility] UA Auto SS Mucus Ql (Urine sed) Trace (03/20/23 2:28 PM) Normal [facility] UA Auto SS Nitrite Ql (U) Negative (03/20/23 2:28 PM) Normal Negative [facility] UA Auto SS pH (U) 6.0 *NA* (03/20/23 2:28 PM) Invalid Interpretation Code 5.0 - 9.0 [facility] UA Auto SS Protein (U) [Mass/Vol] Negative (03/20/23 2:28 PM) Normal Negative [facility] UA Auto SS Specific gravity (U) [Rel density] <=1.005 *NA* (03/20/23 2:28 PM) Invalid Interpretation Code 1.005 - 1.030 [facility] UA Auto SS UA Spec Desc Catheter (03/20/23 2:28 PM) Normal [facility] UA Auto SS Urobilinogen Qn (U) 0.1450151 {Roxana'U}/dL Normal 0.0 - 1.0 EU/dL [facility] UA Auto SS WBC Auto Ql (U) Negative (03/20/23 2:28 PM) Normal Negative [facility] UA Auto SS WBC LM.HPF (Urine sed) [#/Area] 0-5 /HPF Normal 0-5/HPF [facility] UA Auto SS Ambulatory Visit Summaryon 1 05-16-2022 Ambulatory Visit Summary STACEYANAMIKA RAMIREZJANELLE Cade :1960 Visit Date:03/15/2023 Ambulatory Visit Instructions Your Diagnosis Prostate cancer Your Care Team Attending Physician - Chris JOHNSON, Chana Singh Primary Care Physician - ELI Powell, LORRAINE Blanca This Is Your Medications List amlodipine-atorvastatin (amLODIPine-atorvastatin 5 mg-40 mg Tab) dapagliflozin (Farxiga 10 mg oral tablet) ibuprofen (ibuprofen 600 mg Tab) metformin (metformin 500 mg Tab) oxybutynin (oxybutynin 5 mg ER Tab) rosuvastatin (rosuvastatin 10 mg Tab) Procedures Performed Prostatectomy using robotic assistance (03/08/2023), Arthroplasty of knee (08/14/2020), Cholecystectomy, Colonoscopy, Excision of lesion of sweat gland. Discharge Vitals Height 182 cm Height 72 in Weight 132 kg Weight 290.4 lb BMI 39.85 What to do next Scheduled Follow-Up Appointments Wednesday 1:00 PM EST With: Chana Perez MD Where: [facility] Consent for Treatmenton Consent for Treatment [id number]#[id number] [facility] Patient Educationon 03-15-20 23 Patient Education Urology Indwelling Urinary Catheter Care, Adult An indwelling urinary catheter is a thin, flexible tube that is placed into the bladder to help drain urine out of the body. The catheter is inserted into the urethra. The urethra is the part of the body that drains urine from the bladder. Urine drains from the catheter into a drainage bag outside of the body. Taking good care of your catheter will keep it working properly and help to prevent problems from developing. What are the risks? ? Bacteria may get into your bladder and cause a urinary tract infection. ? Urine flow can become blocked. This can happen if the catheter is not working correctly, or if you have sediment or a blood clot in your bladder or catheter. ? Tissue near the catheter may become irritated and may bleed. How to wear your catheter and your drainage bag Supplies needed ? Adhesive tape or a leg strap. ? Alcohol wipe or soap and water (if you use tape). ? A clean towel (if you use tape). ? Overnight drainage bag. ? Smaller drainage bag (leg bag). Wearing your catheter and bag Use adhesive tape or a leg strap to attach your catheter to your leg. ? Make sure the catheter is not pulled tight. ? If a leg strap gets wet, replace it with a dry one. ? If you use adhesive tape: 1. Use an alcohol wipe or soap and water to wash off any stickiness on your skin where you had tape before. 2. Use a clean towel to pat-dry the area. 3. Apply the new tape. You should have received a large overnight drainage bag and a smaller leg bag that fits underneath clothing. ? You may wear the overnight bag at any time, but you should not wear the leg bag at night. ? Make sure the overnight drainage bag is always lower than the level of your bladder, but do not let it touch the floor. Before you go to sleep, hang the bag inside a wastebasket that is covered by a clean plastic bag. ? Secure the leg bag according to business writer's instructions. This may be above or below the knee, depending on the length of the tubing. Make sure that: ? The leg bag is below the bladder. ? The tubing does not have loops or too much tension. How to care for the skin around the catheter Supplies needed ? A clean washcloth. ? Water and mild soap. ? A clean towel. Caring for your skin and catheter ? Every day, use a clean washcloth and soapy water to clean the skin around your catheter. 1. Wash your hands with soap and water. 2. Wet a washcloth in warm water and mild soap. 3. Clean the skin around your urethra. ? If you are female: ? Use one hand to gently spread the folds of skin around your vagina (labia). ? With the washcloth in your other hand, wipe the inner side of your labia on each side. Do this in a ruqfx-lx-eyfy direction. ? If you are male: ? Use one hand to pull back any skin that covers the end of your penis (foreskin). ? With the washcloth in your other hand, wipe your penis in small circles. Start wiping at the tip of your penis, then move outward from the catheter. ? Move the foreskin back in place, if needed. 4. With your free hand, hold the catheter close to where it enters your body. Keep holding the catheter during cleaning so it does not get pulled out. 5. Use your other hand to clean the catheter with the washcloth. ? Only wipe downward on the catheter, toward the bag. ? Do not wipe upward toward your body, because that may push bacteria into your urethra and cause infection. 6. Use a clean towel to pat-dry the catheter and the skin around it. Make sure to wipe off all soap. 7. Wash your hands with soap and water. ? Shower every day. Do not take baths. ? Do not use cream, ointment, or lotion on the area where the catheter enters your body, unless your health care provider tells you to do that. ? Do not use powders, sprays, or lotions on your genital area. ? Check your skin around the catheter every day for signs of infection. Check for: ? Redness, swelling, or pain. ? Fluid or blood. ? Warmth. ? Pus or a bad smell. How to empty the drainage bag Supplies needed ? Rubbing alcohol. ? Gauze pad or cotton ball. ? Adhesive tape or a leg strap. Emptying the bag Empty your drainage bag (your overnight drainage bag or your leg bag) when it is ??? full, or at least 2?3 times a day. Clean the drainage bag according to the business writer's instructions or as told by your health care provider. 1. Wash your hands with soap and water. 2. Detach the drainage bag from your leg. 3. Hold the drainage bag over the toilet or a clean container. Make sure the drainage bag is lower than your hips and bladder. This stops urine from going back into the tubing and into your bladder. 4. Open the pour spout at the bottom of the bag. 5. Empty the urine into the toilet or container. Do not let the pour spout touch any surface. This precaution is important to prevent bacteria from getting (more content not included)... Normal [facility] Pre-Certification Formon Pre-Certification Form [id number]#[id number] Normal [facility] Urology Office/Clinic Noteon 03-15-2023 Urology Office/Clinic Note HPI Staff 62 year old male here for follow up RALP and Bilateral pelvic lymph node dissection on 02/26/23. Cystogram 03/15/23. Previous DX: prostate cancer and BPH w/LUTS. S/P TRUS/BX done 10/16/22, MRI of prostate done 09/28/22. Pt. states no blood in the catheter bag. Pt. states very small amount of leaking around catheter. History of Present Illness Had some bladder fullness and spasms a few days ago. Urine has been clear yellow. No blood today. Notes few scant clots over the weekend. Denies nausea, vomiting, constipation or uncontrolled pain. Last used pain pills postop day 3. Review of Systems PHQ Score Initial Depression Screen Score: 0 SCORE ROS - Provider Constitutional: denies weight loss, denies hot flashes. Eyes: denies eye problems. Gastrointestinal: denies nausea, denies vomiting. Cardiovascular: denies chest pain or angina. Integumentary: no dryness Musculoskeletal: denies musculoskeletal symptoms. ENMT: denies otolaryngeal symptoms. Respiratory: no shortness of breath. Heme/Lymph: denies easy bleeding tendency, denies easy bruising tendency. Psychiatric: no confusion, no anxiety. Genitourinary: See HPI, catheter in place. Physical Exam Vitals & Measurements HT: 72 in HT: 182 cm WT: 132 kg WT: 290.4 lb BMI: 39.85 General Appearance: alert, no distress, well nourished, well developed male. Abdomen: Well-healing laparoscopic incisions, clean dry intact with skin glue. Nontender, nondistended. Genitourinary: normal scrotum, normal testes, normal meatus , normal epididymis, normal vas deferens/spermatic cord. 18Fr Crystal catheter to gravity with light clear yellow urine. Irrigates easily without clots. Flank Pain: none. Bladder: nonpalpable. Assessment/Plan 62-year-old male with history of morbid obesity (BMI 40) patient of Dr. Ardon with recently diagnosed favorable intermediate risk prostate cancer, cT2a, grade group 2, +5/15 cores including region of interest in the left peripheral zone at the mid gland, initial PSA 5.8 s/p RALP, BLPND 03/08/23, here for postop appt 1. Prostate cancer (C61: Malignant neoplasm of prostate) PSA: 01/2022 - 4.60 05/11/22 - 4.80 & 13% 08/25/22 - 5.80 [2] ALVINO 08/18/22 - 30-35 gms, Soft nodule at Lt base of prostate. [3] MRI of prostate 09/28/22 - PI-RADS 4 - posterior aspect of the L peripheral zone at the level of the midgland measuring 13 x 7 mm.[1] 47 cc prostate. S/p TRUS/bx 10/16/[address] Ardon- Initial path: GG1 in 4 cores including NIKOS Upstaged pathology through [facility] [place] [facility] (3+4), GG2 in 2 cores including NIKOS and GS 6, GG1 in 3 cores. 5/[address] Spears ordered Decipher testing - high risk. s/p RALP, BPLND 03/08/23 - Pathology: pT2 N0Mx prostate acinar adenocarcinoma, [place] score 3+4=7 Grade group 2 bilateral, involving approx 20% of the prostate tissue, focal cribriform pattern identified, +perineal invasion, negative margins, no EPE or SV invasion. Discussed Stage IIB prostate adenocarcinoma pathology findings. Discussed surveillance including PSA in 6 to 8 weeks with continued monitoring every 6-12 months x 5 years, then annually thereafter. Healing well postop. Did have bowel movement few days ago noticed some mucus coming out from urethra. Cystogram 03/15/23 positive for small contrast extravasation posterior left urethra. Discussed findings with the patient. Had some discomfort in the test otherwise doing well. Will continue Crystal catheter for now. -Will recheck with repeat cystogram in 1 week with follow up for possible catheter removal. -continue restrictions- no heavy lifting x 6 wks -Catheter irrigated today in office. Urine looks clear, pt states he did have blood a few days ago. Clear today, urine irrigated well. -Patient had complications with STAT REYES, will apply new one today to keep crystal from getting tugged on. -Will repeat Cystogram in 1 week with follow up for possible crystal removal pending results. -Will obtain PSA in 6-8 weeks. Follow-up With When Contact Information Chris JOHNSON, Chana Singh, URL, URO In [address], [place] [address] [place] [id number]- Additional Instructions: w/ repeat cystogram- possible cath removal Patient Education Indwelling Urinary Catheter Care, Adult I, Sushila Paez, personally scribed for Dr. Perez on 03/15/2023 13:08:14. . Documentation recorded by the scribSushila tenorio, accurately reflects the services(s) I performed and decisions made by me. Authenticated by Dr. Perez on 03/15/2023 13:57:04. Problem List/Past Medical History Ongoing BPH with obstruction/lower urinary tract symptoms Bronchitis Diabetes Elevated PSA Gall stone Glucosuria Hypertension Primary cancer of sweat gland Prostate cancer Renal cyst Right hydrocele Smoker Historical No qualifying data Procedure/Surgical History Prostatectomy using robotic assistance (03/08/2023), Arthroplasty of knee ( (more content not included)... Normal [facility] Comment on above: Result Comment: Elec tronically Signed By: Chana Perez MD\.br\Date and Time Signed: 03/15/23 13:57 EST\.br\Electronically Co-Signed By: Sushila Paez\.br\Date and Time Co-Signed: 03/15/23 13:08 EST XR Cystography Minimum 3 Vie wson 03-15-2023 XR Cystography Minimum 3 Views Exam Date/Time: 03/15/2023 09:47 EST Reason for Exam: C61;Post Op Report IMPRESSION: POSITIVE FOR CONTRAST EXTRAVASATION FROM THE REGION OF THE PROSTHETIC URETHRA. EXAM: XR Cystography Minimum 3 Views DATE: 03/15/2023 8:46 AM CLINICAL HISTORY: Post Op, C61. COMPARISON: None available. TECHNIQUE: [facility] Director radiographs of the abdomen and pelvis were obtained. Serial abdominal radiographs were obtained after the gravity drainage of approximately 100 and Isovue 300 contrast through the patient's indwelling Crystal catheter. A total of 5 diagnostic images were obtained. A total of 46.8 mGy Air Kerma (Ka, r) of fluoroscopy was. FINDINGS: A Crystal catheter is present in expected position. Extravasation of contrast is noted from the region of the prosthetic urethra at the place of the bladder, predominantly extending posterolaterally on the left. A very small of contrast is noted in the urinary bladder after drainage. Ordering Provider: Chana Perez FINAL REPORT Dictated: 03/15/2023 12:02 pm Enzo Boss MD Signed (Electronic Signature): 03/15/2023 12:02 pm Signed by: Enzo Boss MD Transcribed by: NOAM Technologist: REID Technical Comments Contrast: Isovue 300 Contrast amount in ml's: 100 Radiation Dose: Ka,r in mGy = 47.80 DAP = 2196.34 Normal [facility] IntraOperative Documentson 1 05-13-2022 IntraOperative Documents [id number] Normal [facility] Discharge Instructionson Discharge Instructions [id number]#[id number] Normal [facility] General Message Officeon General Message Office --- --- --- --- - -- --- --- --- --- From: Gurinder, DirectInbox To: EVELIA IBARRA Sent: 03/11/23 02:30:14 AM EST Subject: Discharge Summary Ready to View A summary regarding your recent visit is available in the Documents section of your health record. [facility] [facility] CHEMISTRYOrdered By: Lab ROP User on 03-10-2023 Glucose [Mass/Vol] 152 mg/dL High 55 - 99 mg/dL [facility] POC Subsection Comment on above: Result Comment: Filomena MIRZA POC Username ADILIA CRUZ Invalid Interpretation Code [facility] POC Subsection Sodium [Moles/Vol] [id number] mmol/L Invalid Interpretation Code [facility] POC Subsection Sodium [Moles/Vol] [id number] mmol/L Invalid Interpretation Code [facility] POC Subsection Glucose [Mass/Vol] 218 mg/dL High 55 - 99 mg/dL [facility] POC Subsection Comment on above: Result Comment: Filomena MIRZA POC Username ADILIA CRUZ Invalid Interpretation Code [facility] POC Subsection Sodium [Moles/Vol] [id number] mmol/L Invalid Interpretation Code [facility] POC Subsection Sodium [Moles/Vol] [id number] mmol/L Invalid Interpretation Code [facility] POC Subsection Capillary Glucose POCon 02-11 Glucose [Mass/Vol] 152 mg/dL High 55-99 [facility] Comment on above: Result Comment: Filomena MIRZA Performed By: #### 2 [id number], [id number], [id number], [id number] #### [facility] Laboratory [address] [place] [address] Glucose [Mass/Vol] 218 mg/dL High 55-99 [facility] Comment on above: Result Comment: Filomena MIRZA Performed By: #### 2 [id number], [id number], [id number], [id number] #### [facility] [address] [place] [address] Discharge Note-Nursingon Discharge Note-Nursing EVELIA IBARRA :1960 Visit Date:03/08/2023 Inpatient Discharge Instructions Your Care Team Admitting Physician - Chana Perez MD Referring Physician - Chana Perez MD Reason for Your Visit PROSTATE CA Your Diagnosis Cancer of prostate, Prostate cancer Diabetes mellitus due to underlying condition with diabetic chronic kidney disease Tests Performed ABO/Rh Antibody Screen Automated Diff Blood Gas Art, with Lytes, Gluc, Lact BMP Capillary Glucose POC CBC w/ Auto Diff eGFR Urinalysis with Culture Reflex This Is Your Medications List acetaminophen-oxycodone (acetaminophen-oxycodone 325 mg-5 mg Tab) amlodipine-atorvastatin (amLODIPine-atorvastatin 5 mg-40 mg Tab) dapagliflozin (Farxiga 10 mg oral tablet) ibuprofen (ibuprofen 600 mg Tab) metformin (metformin 500 mg Tab) oxybutynin (oxybutynin 5 mg ER Tab) sulfamethoxazole-trimethop rim (Bactrim D.S. 800 mg-160 mg Tab) Procedure History Prostatectomy using robotic assistance (03/08/2023), Arthroplasty of knee (08/14/2020), Cholecystectomy, Colonoscopy, Excision of lesion of sweat gland. Discharge Vitals Temperature (Axillary) 36.8 ?C Heart Rate (Monitored) 87 Respiratory Rate 18 Blood Pressure 128/64 Weight 140.4 kg What to do next Instructions From Your Doctor Event Name Event Result Discharge Activity Ambulate as tolerated, Expect mild pain, Expect minimal amount of drainage and/or bleeding. Discharge Restrictions No driving, Do not operate machinery or tools. Discharge Diet(s) Regular Call Your Doctor For Persistent or heavy bleeding, Temperature above 101.5 degrees, Redness, swelling, or pus at operative site, Severe pain at the operative site, Persistent vomiting. Pending Diagnostic Test Results Biopsy/pathology. Pharmacy Information Other: [facility]. New Follow Up Appointments after Discharge Follow Up with LORRAINE REYNOLDS When: 03/15/2023 10:40 AM EST Where: [address] [place] [address]- Follow Up with Chana Perez When: Comments: Office will call to schedule your follow up in 1 week for cystogram, possible crystal removal and pathology review Where: [address], [place] [phone] Business (1) [address], [address] [facility] [address] [place] [address] [phone] Business (1) Medications What How Much When Why Instructions Next Dose New acetaminophen-oxycodone (acetaminophen-oxycodone 325 mg-5 mg Tab) 2 Tablets By Mouth Every 6 hours as needed for Pain 8-10 Cancer of prostate Duration: 3 Days 1 tab for moderate pain, 2 tabs for severe pain Pickup at [facility] NEEDED FOR PAIN, 03/10 AFTER 2:30 PM New oxybutynin (oxybutynin 5 mg ER Tab) 1 Tablets By Mouth Every day as needed for Urinary discomfort 1 to 2 tabs as needed for bladder spasms/ catheter irritation Pickup at [facility] 49 NEEDED FOR BLADDER SPASMS New sulfamethoxazole-trimethop rim (Bactrim D.S. 800 mg-160 mg Tab) 1 Tablets By Mouth 2 times a day Duration: 2 Days Start morning of cystogram and crystal removal next week Pickup at [facility] 4962 03/11 @ 9 AM, 9 PM Unchanged amlodipine-atorvastatin (amLODIPine-atorvastatin 5 mg-40 mg Tab) 1 Tablets By Mouth Every day 03/11 @ 9 AM Unchanged dapagliflozin (Farxiga 10 mg oral tablet) 1 Tablets By Mouth Every day 03/11 @ 9 AM Unchanged ibuprofen (ibuprofen 600 mg Tab) 1 Tablets By Mouth Every day as needed for as needed for pain NEEDED FOR PAIN, N DOSES TODAY Unchanged metformin (metformin 500 mg Tab) 1 Tablets By Mouth Every day 03/11 @ 9 AM Pharmacy Information [facility] 49: [address] [place] [phone] Test Results CBC BMP WBC: 14.7 E9/L High (03/08/23 13:18:00) Glucose Lvl: 197 mg/dL (03/08/23 18:31:00) RBC: 5.2 E12/L (03/08/23 13:18:00) BUN: 15 mg/dL (03/08/23 18:31:00) HGB: 14.8 gm/dL (03/08/23 13:18:00) Creatinine: 1.1 mg/dL (03/08/23 18:31:00) Hct: 43.8 % (03/08/23 13:18:00) BUN/Creat Ratio: 14 (03/08/23 18:31:00) MCV: 85 fL (03/08/23 13:18:00) Sodium Lvl: 137 mmol/L (03/08/23 18:31:00) MCH: 28.6 pg (03/08/23 13:18:00) Potassium Lvl: 4.2 mmol/L (03/08/23:31:00) MCHC: 33.7 gm/dL (03/08/23 13:18:00) Chloride: 101 mmol/L (03/08/23 18:31:00) RDW: 13.9 % (03/08/23 13:18:00) CO2: 23 mmol/L (03/08/23 18:31:00) Platelet: 239 E9/L (03/08/23 13:18:00) AGAP: 17 mEq/L High (03/08/23 18:31:00) MPV: 7 fL (03/08/23 13:18:00) Calcium Lvl: 8.2 mg/dL Low (03/08/23 18:31:00) Allergies penicillins (Unsure) Problems Ongoing - Any problem that you are currently receiving treatment for. BPH with obstruction/lower urinary tract symptoms Bronchitis Diabetes Elevated PSA Gall stone Glucosuria Hypertension Primary cancer of sweat gland Prostate cancer Renal cyst Right hydrocele Smoker Education Materials Robot-Assisted Laparoscopic Radical Prostat (more content not included)... Normal [facility] Inpatient Clinical Summaryon 03-10-2023 Inpatient Clinical Summary [address] [address] Clinical Summary Person Information: Name: EVELIA IBARRA Age: 62 Years : 1960 Sex: Male PCP: LORRAINE Aleman Marital Status: Race: White Ethnicity: Non- or Language: Estonian Visit Id: Visit Reason: PROSTATE CA Speciality: Acuity: Enc Type: Inpatient Med Service: Medical Arrival: 03/08/2023 06:01:20 Discharge: Dispo Type: Address: [facility] [phone] Provider Notes: Diagnosis: Prostate cancer Problems Active Smoker Glucosuria Prostate cancer Right hydrocele BPH with obstruction/lower urinary tract symptoms Gall stone Renal cyst Elevated PSA Hypertension Bronchitis Primary cancer of sweat gland Diabetes Smoking Status: Functional Status: Sensory Deficits: History of Falls: Mobility Assistance Prior to Admission: ADLs: Minimal assistance Current Level of Assistance for Self-Care/Mobility: Cognitive Status: Allergies penicillins (Unsure) Measurements: Height: Weight: 140.4 kg Blood Pressure: 126 mmHg / 70 mmHg BMI: Procedures Prostatectomy using robotic assistance (03/08/2023) Immunizations No Immunizations Documented This Visit Final Med List: acetaminophen-oxycodone (acetaminophen-oxycodone 325 mg-5 mg Tab) 2 Tablets By Mouth every 6 hours as needed Pain 8-10 for 3 Days. 1 tab for moderate pain, 2 tabs for severe pain. Refills: 0. amlodipine-atorvastatin (amLODIPine-atorvastatin 5 mg-40 mg Tab) 1 Tablets By Mouth every day. dapagliflozin (Farxiga 10 mg oral tablet) 1 Tablets By Mouth every day. ibuprofen (ibuprofen 600 mg Tab) 1 Tablets By Mouth every day as needed as needed for pain. metformin (metformin 500 mg Tab) 1 Tablets By Mouth every day. oxybutynin (oxybutynin 5 mg ER Tab) 1 Tablets By Mouth every day as needed Urinary discomfort. 1 to 2 tabs as needed for bladder spasms/catheter irritation. Refills: 0. sulfamethoxazole-trimethop rim (Bactrim D.S. 800 mg-160 mg Tab) 1 Tablets By Mouth 2 times a day for 2 Days. Start morning of cystogram and crystal removal next week. Refills: 0. Care Team Members: Attending Physician: Chana Perez MD Consulting Physician: Referring Physician: Chana Perez MD Follow up: With: Address: When: LORRAINE REYNOLDS [address] [place] [address] 03/15/2023 10:40 AM With: Address: When: Chana Chris [address], [place] [phone] Business (1) [address], [address], [facility] [address] [place] [phone] Business (1) Comments: Office will call to schedule your follow up in 1 week for cystogram, possible crystal removal and pathology review Patient Education Information: Robot-Assisted Laparoscopic Radical Prostatectomy, Care After Normal [facility] Inpatient Patient Summaryon 03-10-2023 Inpatient Patient Summary EVELIA IBARRA :1960 Visit Date:03/08/2023 Inpatient Discharge Instructions Your Care Team Admitting Physician - Chana Perez MD Referring Physician - Chana Perez MD Reason for Your Visit PROSTATE CA Your Diagnosis Cancer of prostate, Prostate cancer Diabetes mellitus due to underlying condition with diabetic chronic kidney disease Tests Performed ABO/Rh Antibody Screen Automated Diff Blood Gas Art, with Lytes, Gluc, Lact BMP Capillary Glucose POC CBC w/ Auto Diff eGFR Urinalysis with Culture Reflex This Is Your Medications List acetaminophen-oxycodone (acetaminophen-oxycodone 325 mg-5 mg Tab) amlodipine-atorvastatin (amLODIPine-atorvastatin 5 mg-40 mg Tab) dapagliflozin (Farxiga 10 mg oral tablet) ibuprofen (ibuprofen 600 mg Tab) metformin (metformin 500 mg Tab) oxybutynin (oxybutynin 5 mg ER Tab) sulfamethoxazole-trimethop rim (Bactrim D.S. 800 mg-160 mg Tab) Procedure History Prostatectomy using robotic assistance (03/08/2023), Arthroplasty of knee (08/14/2020), Cholecystectomy, Colonoscopy, Excision of lesion of sweat gland. Discharge Vitals Temperature (Axillary) 36.8 ?C Heart Rate (Monitored) 87 Respiratory Rate 18 Blood Pressure 128/64 Weight 140.4 kg What to do next Instructions From Your Doctor Event Name Event Result Discharge Activity Ambulate as tolerated, Expect mild pain, Expect minimal amount of drainage and/or bleeding Discharge Restrictions No driving, Do not operate machinery or tools Discharge Diet(s) Regular Call Your Doctor For Persistent or heavy bleeding, Temperature above 101.5 degrees, Redness, swelling, or pus at operative site, Severe pain at the operative site, Persistent vomiting Pending Diagnostic Test Results Biopsy/pathology Pharmacy Information Other: [facility] New Follow Up Appointments after Discharge Follow Up with LORRAINE REYNOLDS When: 03/15/2023 10:40 AM EST Where: [address] [place] [address]- Follow Up with Chana Perez When: Comments: Office will call to schedule your follow up in 1 week for cystogram, possible crystal removal and pathology review Where: [address], [place] [phone] Business (1) [address], [address] [place] [phone] Business (1) Medications What How Much When Why Instructions Next Dose New acetaminophen-oxycodone (acetaminophen-oxycodone 325 mg-5 mg Tab) 2 Tablets By Mouth Every 6 hours as needed for Pain 8-10 Cancer of prostate Duration: 3 Days 1 tab for moderate pain, 2 tabs for severe pain Pickup at [facility] 4962 New oxybutynin (oxybutynin 5 mg ER Tab) 1 Tablets By Mouth Every day as needed for Urinary discomfort 1 to 2 tabs as needed for bladder spasms/ catheter irritation Pickup at [facility] 4962 New sulfamethoxazole-trimethop rim (Bactrim D.S. 800 mg-160 mg Tab) 1 Tablets By Mouth 2 times a day Duration: 2 Days Start morning of cystogram and crystal removal next week Pickup at [facility] 4962 Unchanged amlodipine-atorvastatin (amLODIPine-atorvastatin 5 mg-40 mg Tab) 1 Tablets By Mouth Every day Unchanged dapagliflozin (Farxiga 10 mg oral tablet) 1 Tablets By Mouth Every day Unchanged ibuprofen (ibuprofen 600 mg Tab) 1 Tablets By Mouth Every day as needed for as needed for pain Unchanged metformin (metformin 500 mg Tab) 1 Tablets By Mouth Every day Pharmacy Information [facility]62: [address] [place] [phone] Test Results CBC BMP WBC: 14.7 E9/L High (03/08/23 13:18:00) Glucose Lvl: 197 mg/dL (03/08/23 18:31:00) RBC: 5.2 E12/L (03/08/23 13:18:00) BUN: 15 mg/dL (03/08/23 18:31:00) HGB: 14.8 gm/dL (03/08/23 13:18:00) Creatinine: 1.1 mg/dL (03/08/23 18:31:00) Hct: 43.8 % (03/08/23:18:00) BUN/Creat Ratio: 14 (03/08/23 18:31:00) MCV: 85 fL (03/08/23:18:00) Sodium Lvl: 137 mmol/L (03/08/23::00) MCH: 28.6 pg (03/08/23:18:00) Potassium Lvl: 4.2 mmol/L (03/08/23:31:00) MCHC: 33.7 gm/dL (03/08/23:18:00) Chloride: 101 mmol/L (03/08/23:31:00) RDW: 13.9 % (03/08/23:18:00) CO2: 23 mmol/L (03/08/23:31:00) Platelet: 239 E9/L (03/08/23:18:00) AGAP: 17 mEq/L High (03/08/23 18:31:00) MPV: 7 fL (03/08/23 13:18:00) Calcium Lvl: 8.2 mg/dL Low (03/08/23 18:31:00) Allergies penicillins (Unsure) Problems Ongoing - Any problem that you are currently receiving treatment for. BPH with obstruction/lower urinary tract symptoms Bronchitis Diabetes Elevated PSA Gall stone Glucosuria Hypertension Primary cancer of sweat gland Prostate cancer Renal cyst Right hydrocele Smoker Education Materials Robot-Assisted Laparoscopic Radical Prostatectomy, Care After The following information offers guidance on how to care for yourself after your procedure. Your health care provider may also give you more spec (more content not included)... Normal [facility] Inpatient Patient Summary [address] [address] Patient Discharge Instructions PERSON INFORMATION Name: EVELIA IBARRA Date of : 1960 Current Date: 03/10/2023 08:41:20 PHYSICIANS Admitting Physician: Chana Perez MD Primary Care Physician: LORRAINE Aleman PCP Phone Number: [phone] Comment: Discharge Diagnosis: Prostate cancer Condition at Discharge: Stable EVELIA IBARRA has been given the following list of follow-up instructions, prescriptions, and patient education materials: PATIENT FOLLOW-UP INFORMATION Diet: Regular Discharge Activity: Ambulate as tolerated, Expect mild pain, Expect minimal amount of drainage and/or bleeding Discharge Restrictions: No driving, Do not operate machinery or tools Wound Care Instructions: Remove Your Dressing In Days Call Your Doctor For: Persistent or heavy bleeding, Temperature above 101.5 degrees, Redness, swelling, or pus at operative site, Severe pain at the operative site, Persistent vomiting IF UNABLE TO CONTACT YOUR PHYSICIAN AND YOU FEEL IT IS AN EMERGENCY, GO TO THE NEAREST EMERGENCY ROOM OR CALL 911 Home Treatment: Devices/Equipment: Special Services: Additional Instructions: Primary Care Physician to provide the following pending test results: Biopsy/pathology Follow up: With: Address: When: LORRAINE REYNOLDS [address] [place] [address] 03/15/2023 10:40 AM With: Address: When: Chana Perez [address], [place] [phone] Business (1) [address], [place] [address], [facility] [address] [place] [phone] [facility] (1) Comments: Office will call to schedule your follow up in 1 week for cystogram, possible crystal removal and pathology review In the event that this physician does not participate in your insurance network, please consult with your insurance company to find a nearby participating provider. Comment: STACEY Lyles EVELIA Rayo, have received the attached patient education materials/instructions and have verbalized understanding: Patient Signature __ Date Clinican/Nurse Signature Date HERE ARE THE MEDICATION CHANGES THAT OCCURRED DURING YOUR HOSPITAL STAY New Medications [facility], [address] [place] [phone], [phone] acetaminophen-oxycodone (acetaminophen-oxycodone 325 mg-5 mg Tab) 2 Tablets By Mouth every 6 hours as needed Pain 8-10 for 3 Days. 1 tab for moderate pain, 2 tabs for severe pain. Refills: 0. Last Dose: N ext Dose: oxybutynin (oxybutynin 5 mg ER Tab) 1 Tablets By Mouth every day as needed Urinary discomfort. 1 to 2 tabs as needed for bladder spasms/catheter irritation. Refills: 0. Last Dose: N ext Dose: sulfamethoxazole-trimethop rim (Bactrim D.S. 800 mg-160 mg Tab) 1 Tablets By Mouth 2 times a day for 2 Days. Start morning of cystogram and crystal removal next week. Refills: 0. Last Dose: N ext Dose: Medications to Continue with No Changes Other Medications amlodipine-atorvastatin (amLODIPine-atorvastatin 5 mg-40 mg Tab) 1 Tablets By Mouth every day. Last Dose: N ext Dose: dapagliflozin (Farxiga 10 mg oral tablet) 1 Tablets By Mouth every day. Last Dose: N ext Dose: ibuprofen (ibuprofen 600 mg Tab) 1 Tablets By Mouth every day as needed as needed for pain. Last Dose: N ext Dose: metformin (metformin 500 mg Tab) 1 Tablets By Mouth every day. Last Dose: N ext Dose: Comment: MEDICATION LIST PROVIDED FOR YOU IS A LIST OF YOUR CURRENT MEDICATIONS. PLEASE CARRY THIS WITH YOU AT ALL TIMES. acetaminophen-oxycodone (acetaminophen-oxycodone 325 mg-5 mg Tab) 2 Tablets By Mouth every 6 hours as needed Pain 8-10 for 3 Days. 1 tab for moderate pain, 2 tabs for severe pain. Refills: 0. amlodipine-atorvastatin (amLODIPine-atorvastatin 5 mg-40 mg Tab) 1 Tablets By Mouth every day. dapagliflozin (Farxiga 10 mg oral tablet) 1 Tablets By Mouth every day. ibuprofen (ibuprofen 600 mg Tab) 1 Tablets By Mouth every day as needed as needed for pain. metformin (metformin 500 mg Tab) 1 Tablets By Mouth every day. oxybutynin (oxybutynin 5 mg ER Tab) 1 Tablets By Mouth every day as needed Urinary discomfort. 1 to 2 tabs as needed for bladder spasms/catheter irritation. Refills: 0. sulfamethoxazole-trimethop rim (Bactrim D.S. 800 mg-160 mg Tab) 1 Tablets By Mouth 2 times a day for 2 Days. Start morning of cystogram and crystal removal next week. Refills: 0. Pharmacy Information: Other: [facility] Comment: PATIENT EDUCATION INFORMATION Instructions: Robot-Assisted Lapar (more content not included)... Normal [facility] Interdisciplinary Note - Eugene e Manageron 03-10-2023 Interdisciplinary Note - Talend Etl Developer CRM to room to discuss DC planning. Patient is awake, alert and oriented. Patient is from home with his Spouse, she can transport at DC. Patient verified PCP, home DME and insurance. Patient is here for Prostate CA and had a prostatectomy. Patient is assigned to Dr Perez. Patient denied any DC needs for DME, HH or PM. Anticipated DC date today if eating, pain controlled and DARIO less than 100 CC, CRM following White board updated, contact info provided. [facility] Comment on above: Result Comment: Elec tronically Signed By: Sushila Gallego\.br\Date and Time Signed: 03/10/23 11:20 EST Main OR Intraoperative Recor don 03-10-2023 Main OR Intraoperative Record IntraOp Document Type FT Summary Primary Physician: Chana Perez MD Finalized Date/Time: 03/10/23 09:54:24 Pt. Name: EVELIA IBARRA Rayo /Sex: 1960 Male Med Rec #: [id number] Physician: Chana Perez MD Financial #: [id number] Pt. Type: I Room/Bed: [place] [address] Admit/Disch: 03/08/23 06:01:20 - Institution: Case Times FT Entry 1 Patient Times In Room 03/08/23 07:28:00 Out Room 03/08/23 16:35:00 Procedure Times Start 03/08/23 08:09:00 Stop 03/08/23 16:28:00 Anesthesia Times Start 03/08/23 07:28:00 Stop 03/08/23 16:35:00 Last Modified By: Hermann Liu Ii 03/08/23 16:42:19 General Comments: Robot docked time at 0822, undocked at . Surgeon console time at 0810 - 7429 . SARTHAK paulino 03/10/23 Chart opened to review and send charges [facility] CSFA Case Attendance FT Entry 1 Entry 2 Entry 3 [address] Att[address] Vitaly WAY, Tomer Perez MD, Chana BRADEN MD, TOMER Smith Performed Anesthesiologist Surgeon - Primary Surgeon - Assist 1 Floatlight Powder Mixer Time In 03/08/23 07:28:00 03/08/23 07:35:00 03/08/23 07:28:00 Time Out 03/08/23 15:20:00 03/08/23 16:20:00 03/08/23 15:29:00 Procedure PROSTATECTOMY, ROBOT PROSTATECTOMY, ROBOT PROSTATECTOMY, ROBOT ASSISTED(.) ASSISTED(.) ASSISTED(.) Comments Dr. Walker anesthesia supervisor assembly stock. Out of room for break at 0835 - 0847. Out of room for lunch at 1150- 1220. Last Modified By: Hermann Liu Ii, Alfons Ii F Letrondo, Alfons Ii F 03/08/23 16:42:40 03/08/23 16:42:40 03/08/23 16:42:40 Entry 4 Entry 5 Entry 6 Case Attendee Yadi Matamoros CST, Hermann Saeed Ii Role Performed Scrub - Primary INDOOR PLANT TECHNICIAN/SA Lip Cutter And Scorer - Primary Time In 03/08/23 07:28:00 03/08/23 07:28:00 03/08/23 07:28:00 Time Out 03/08/23 16:35:00 03/08/23 15:05:00 03/08/23 16:35:00 Procedure PROSTATECTOMY, ROBOT PROSTATECTOMY, ROBOT PROSTATECTOMY, ROBOT ASSISTED(.) ASSISTED(.) ASSISTED(.) Comments Out of room for break assist. Out of room for at 1012 - 1023. Out of break at 0950 - 1000. room fro Lunch break at Out of room for lunch 1133 -1203 at 1245- 1315 Last Modified By: Hermann Liu Ii, CST, Hermann Saeed Ii 03/08/23 16:42:40 03/10/23 09:46:12 03/08/23 16:42:40 Entry 7 Entry 8 Entry 9 Case Attendee Pankaj DE LEÓN, Maya Gordon, Adilia Durham DNP, PHOTOENGRAVING MACHINE OPERATOR/TENDER, [place]. Role Performed Lip Cutter And Scorer - Primary Staff - Other PHOTOENGRAVING MACHINE OPERATOR/TENDER Time In 03/08/23 07:28:00 03/08/23 07:28:00 03/08/23 08:35:00 Time Out 03/08/23 16:35:00 03/08/23 16:35:00 03/08/23 08:48:00 Procedure PROSTATECTOMY, ROBOT PROSTATECTOMY, ROBOT PROSTATECTOMY, ROBOT ASSISTED(.) ASSISTED(.) ASSISTED(.) Comments Out of room for lunch Helping in Ela Matamoros break at 1100 - 1130 Last Modified By: Letrondo, Alfons Ii F Letrondo, Alfons Ii F Letrondo, Alfons Ii F 03/08/23 16:42:40 03/08/23 16:42:40 03/08/23 16:42:40 Entry 10 Entry 11 Entry 12 Case Attendee carolina RN, CNOR, Deetpi Gordon, Adilia Gordon, Adilia Boyce Role Performed SWIMMING POOL MAINTENANCE Scrub - Relief Scrub - Relief Time In 03/08/23 09:49:00 03/08/23 10:12:00 03/08/23 11:33:00 Time Out 03/08/23 10:04:00 03/08/23 10:30:00 03/08/23 12:05:00 Procedure PROSTATECTOMY, ROBOT PROSTATECTOMY, ROBOT PROSTATECTOMY, ROBOT ASSISTED(.) ASSISTED(.) ASSISTED(.) Comments giving break to [place],L giving break to [place],M lunch relief Last Modified By: Letrondo, Alfons Ii F Letrondo, Alfons Ii F Letrondo, Alfons Ii F 03/08/23 16:42:40 03/08/23 16:42:40 03/08/23 16:42:40 Entry 13 Entry 14 Entry 15 Case Attendee Herminio TRINH, PHOTOENGRAVING MACHINE OPERATOR/TENDER, Ocasio carolina RN, CNOR, Deepti Gordon, Adilia Boyce Role Performed PHOTOENGRAVING MACHINE OPERATOR/TENDER SWIMMING POOL MAINTENANCE Staff - Other Time In 03/08/23 11:50:00 03/08/23 12:37:00 03/08/23 12:50:00 Time Out 03/08/23 12:20:00 03/08/23 13:20:00 03/08/23 13:31:00 Procedure PROSTATECTOMY, ROBOT PROSTATECTOMY, ROBOT PROSTATECTOMY, ROBOT ASSISTED(.) ASSISTED(.) ASSISTED(.) Comments lunch relief lunch relief 2nd scrub Last Modified By: Letrondo, Alfons Ii F Letrondo, Alfons Ii F Letrondo, Alfons Ii F 03/08/23 16:42:40 03/08/23 16:42:40 03/08/23 16:42:40 Entry 16 Entry 17 Entry 18 Case Attendee Ellen Carter, Faisal Mcmahon PHOTOENGRAVING MACHINE OPERATOR/TENDER, Tomasz Singh Role Performed Scrub - Relief INDOOR PLANT TECHNICIAN/SA PHOTOENGRAVING MACHINE OPERATOR/TENDER Time In 03/08/23 14:50:00 03/08/23 14:50:00 03/08/23 15:20:00 Time Out 03/08/23 16:35:00 03/08/23 16:35:00 03/08/23 16:35:00 Procedure PROSTATECTOMY, ROBOT PROSTATECTOMY, ROBOT PROSTATECTOMY, ROBOT ASSISTED(.) ASSISTED(.) ASSISTED(.) Comments relief international first officer Reliever of [address], Barrett supervisor assembly stock Last Modified By: Hermann Liu Ii, Alfons Ii F Letrondo, Alfons Ii F 03/08/23 16:42:40 03/08/23 16:42:40 03/08/23 16:42:40 Perioperative Protocols FT Pre-Care Text: Implements protective measures prior to operative or invasive procedure, confirms identity before the operative or invasive procedure, verifies operative procedure, surgical site, and laterality Entry 1 Procedure(s) PROSTATECTOMY, ROBOT P (more content not included)... Normal [facility] Progress Note-Physicianon Progress Note-Physician Patient: EVELIA IBARRA Age: 62 years Sex: Male : 1960 Associated Diagnoses: None Author: Adebayo Laurent Jr., DO Postoperative Information Postoperative disposition: Postoperative disposition: Home. Optimetrix number: Optimetrix number [phone]. Anesthetic utilized: General. Physical Examination Vital Signs 03/08/2023 16:50 EST Heart Rate Monitored 96 bpm Respiratory Rate Monitored 16 br/min Systolic Blood Pressure 128 mmHg Diastolic Blood Pressure 88 mmHg Mean Arterial Pressure, Cuff 101 mmHg Systolic Blood Pressure Invasive 120 mmHg Diastolic Blood Pressure Invasive 59 mmHg LOW Mean Arterial Pressure, Invasive 77 mmHg SpO2 92 % 03/08/2023 16:45 EST Heart Rate Monitored 97 bpm Respiratory Rate Monitored 14 br/min Systolic Blood Pressure 134 mmHg Diastolic Blood Pressure 85 mmHg Mean Arterial Pressure, Cuff 101 mmHg Systolic Blood Pressure Invasive 133 mmHg Diastolic Blood Pressure Invasive 60 mmHg Mean Arterial Pressure, Invasive 83 mmHg SpO2 95 % 03/08/2023 16:40 EST Heart Rate Monitored 96 bpm Respiratory Rate Monitored 16 br/min Systolic Blood Pressure 131 mmHg Diastolic Blood Pressure 88 mmHg Mean Arterial Pressure, Cuff 102 mmHg SpO2 94 % 03/08/2023 16:36 EST Temperature Temporal Artery 36.9 DegC Heart Rate Monitored 96 bpm Respiratory Rate Monitored 23 br/min Systolic Blood Pressure 137 mmHg Diastolic Blood Pressure 92 mmHg HI Mean Arterial Pressure, Cuff 107 mmHg SpO2 95 % Pain Assessment: 03/08/2023 17:01 EST Preliminary Pain Scale 4 Primary Pain Location Elbow Primary Pain Laterality Left 03/08/2023 17:00 EST Numeric Pain Scale 4 03/08/2023 16:36 EST Preliminary Pain Scale 4 Primary Pain Location Elbow Primary Pain Laterality Left . General: Awake, Alert, Appropriate. Respiratory: Adequate air exchange, Non-labored. Cardiovascular: Stable, Normal peripheral perfusion. Neurological: Neurologic exam at baseline. No changes.. Assessment Anesthetic outcome No anesthetic complications noted. No nausea/vomiting. Review / Management Condition: Stable. Plan Transfer/Discharge: Transfer/Discharge Discharge when meets criteria ( From PACU to floor ). Normal [facility] Comment on above: Result Comment: Elec tronically Signed By: Adebayo Laurent Jr., DO\.br\Date and Time Signed: 03/10/23 07:30 EST CHEMISTRYOrdered By: Lab ROP User on 03-09-2023 Glucose [Mass/Vol] 240 mg/dL High 55 - 99 mg/dL [facility] POC Subsection Comment on above: Result Comment: Filomena cage RN/ POC Username KANDIS FRANCISCO Invalid Interpretation Code [facility] POC Subsection Sodium [Moles/Vol] [id number] mmol/L Invalid Interpretation Code [facility] POC Subsection Sodium [Moles/Vol] [id number] mmol/L Invalid Interpretation Code [facility] POC Subsection Capillary Glucose POCon 02-11 Glucose [Mass/Vol] 240 mg/dL High 55-99 [facility] Comment on above: Result Comment: Filomena cage RN/ Performed By: #### 2 [id number] ####[facility] [address] [place] [address] Glucose [Mass/Vol] 234 mg/dL High 55-99 [facility] Comment on above: Result Comment: Insu henok Started Performed By: #### 2 078034, [id number], 65065226, 9067247, 4092449 #### [facility] [address] [place] [address] Glucose [Mass/Vol] 245 mg/dL High 55-99 [facility] Comment on above: Result Comment: Insu henok Started Performed By: #### 2 [id number] #### [facility] [address] [place] [address] Glucose [Mass/Vol] 240 mg/dL High 55-99 [facility] Comment on above: Result Comment: Insu henok Started Performed By: #### 2 139070, [id number], [id number], 3694748, 3546484 #### [facility] [address] [place] [address] Consent for Anesthesiaon Consent for Anesthesia [id number]#1.00TIFF [facility] SS8 NetworksWell Education Videoon Filmzu Education Video Yes Patient Avoiding Infections in the Hospital Normal [facility] Interdisciplinary Note - Eugene e Manageron 03-09-2023 Interdisciplinary Note - Talend Etl Developer CRM to room to discuss DC planning. Patient is awake, alert and oriented. Patient is from home with his Spouse, she can transport at DC. Patient verified PCP, home DME and insurance. Patient is here for Prostate CA and had a prostatectomy. Patient is assigned to Dr Perez, no progress note for 03/09 yet. Patient denied any DC needs for DME, HH or PM. DC date TBD 1-2 days, CRM following. White board updated, contact info provided. Normal [facility] Comment on above: Result Comment: Elec tronically Signed By: Sushila Gallego\.br\Date and Time Signed: 03/09/23 10:16 EST IntraOperative Documentson 1 05-09-2022 IntraOperative Documents [id number]#1.00TIFF [facility] IntraOperative Documents [id number]#1.00TIFF [facility] Preoperative Documentson Preoperative Documents [id number]#1.00TIFF [facility] Progress Note-Nurseon 2022 Progress Note-Nurse Dario drain removed per physician orders. 3 stitches removed. DARIO total output 75ML from [id number]. DARIO drain removal as tolerated. DSD dressing applied and secured with paper tape. Normal [facility] Progress Note-Physicianon Progress Note-Physician Patient: EVELIA IBARRA Age: 62 years Sex: Male : 1960 Associated Diagnoses: None Author: Chris JOHNSON, Chana Singh Subjective No acute events overnight. Tolerating clears and cookies. Has not been out of bed. Denies fever, chills, chest pain, nausea or vomiting. Started having pain this morning. States he has a high tolerance for pain medications. Took Portal and Toradol IV without much effect. Health Status Allergies: Allergic Reactions (Selected) Severity Not Documented Penicillins- Unsure., Allergies (1) Active Reaction penicillins Unsure Current medications: (Selected) Inpatient Medications Ordered Colace 100 mg Cap: 100 mg = 1 cap(s), Cap, Oral, BID, Routine, Start date 03/08/23 21:00:00 EST, 03/08/23 16:40:00 EST HumaLOG Sliding Scale: 0-10 unit(s), Injection-Insulin, SubCutaneous, QIDACHS, Routine, Start date 03/08/23 21:00:00 EST Percocet 5 mg-325 mg oral tablet: 1 tab(s), Tab, Oral, q6hr PRN Pain 4-7, Routine, Start date 03/09/23 7:34:00 EST Percocet 5 mg-325 mg oral tablet: 2 tab(s), Tab, Oral, q6hr PRN Pain 8-10, Routine, Start date 03/09/23 7:35:00 EST Pyridium 100 mg Tab: 100 mg = 1 tab(s), Tab, Oral, TIDPC PRN Urinary discomfort, Routine, Start date 03/08/23 16:37:00 EST, 03/08/23 16:37:00 EST Tylenol 325 mg Tab: 650 mg = 2 tab(s), Tab, Oral, q4hr PRN Pain/Fever, Routine, Start date 03/08/23 16:38:00 EST, 03/08/23 16:38:00 EST amLODIPine 5 mg Tab: 5 mg = 1 tab(s), Tab, Oral, Daily, Routine, Start date 03/09/23 9:00:00 EST, Hold for SBP <100 atorvastatin 40 mg Tab: 40 mg = 1 tab(s), Tab, Oral, Daily, Routine, Start date 03/09/23 9:00:00 EST heparin 5000 units/mL Inj: 5,000 unit(s) = 1 mL, Injection, SubCutaneous, q8hrFT for 30 day(s), Stop date 04/07/23 23:59:00 EST, Routine, Start date 03/09/23 0:00:00 EST ketorolac 15 mg/mL Inj: 15 mg = 1 mL, Injection, IV Push, q6hr PRN Pain for 5 day(s), Stop date 03/13/23 16:36:00 EST, Routine, Start date 03/08/23 16:37:00 EST, 03/08/23 16:37:00 EST morphine 4 mg/mL Inj: 4 mg = 1 mL, Injection, IV Push, q4hr PRN Pain 8-10, Stop date 03/12/23 16:22:00 EST, Routine, Start date 03/08/23 16:41:00 EST, 03/08/23 16:41:00 EST oxybutynin 5 mg ER Tab: 5 mg = 1 tab(s), Tab-ER, Oral, Daily PRN Urinary discomfort, Routine, Start date 03/08/23 16:37:00 EST, bladder spasms Prescriptions Prescribed Bactrim D.S. 800 mg-160 mg Tab: 1 tab(s), Oral, BID for 2 day(s), 4 tab(s), Refill(s) 0, Start morning of cystogram and crystal removal next week, [facility], 184.5, cm, 02/15/23 14:41:00 EST, Height/Length Dosing, 136.7, kg, 03/09/23 6:30:00 EST, Weight Dosing acetaminophen-oxycodone 325 mg-5 mg Tab: 2 tab(s), Oral, q6hr Pain 8-10 for 3 day(s), 24 tab(s), Refill(s) 0, 1 tab for moderate pain, 2 tabs for severe pain, [facility], 184.5, cm, 02/15/23 14:41:00 EST, Height/Length Dosing, 136.7, kg, 03/09/23 6:30:00 EST, Weight Dosing oxybutynin 5 mg ER Tab: 5 mg = 1 tab(s), Oral, Daily, PRN Urinary discomfort, 1 to 2 tabs as needed for bladder spasms/catheter irritation, # 60 tab(s), Refills(s) 0, Pharmacy: [facility], 184.5, cm, 02/15/23 14:41:00 EST, Height/Length Dosing, 136.7, kg, 03/09... Documented Medications Documented Farxiga 10 mg oral tablet: 10 mg = 1 tab(s), Oral, Daily, Refills(s) 0, Blood glucose amLODIPine-atorvastatin 5 mg-40 mg Tab: 1 tab(s), Oral, Daily, Refill(s) 0, High blood pressure ibuprofen 600 mg Tab: 600 mg = 1 tab(s), Oral, Daily, PRN as needed for pain, Refills(s) 0 metformin 500 mg Tab: 500 mg = 1 tab(s), Oral, Daily, Refills(s) 0, Blood glucose Objective Intake and Output 03/09/2023 13:42 EST Other: DARIO drain Abdomen Left Lower Surgical Drain, Tube Output: 40 mL 03/09/2023 10:54 EST Other: DARIO drain Abdomen Left Lower Surgical Drain, Tube Output: 35 mL 03/09/2023 6:29 EST Other: DARIO drain Abdomen Left Lower Surgical Drain, Tube Output: 10 mL 03/09/2023 6:00 EST Urine Catheter 600 mL 03/09/2023 4:00 EST Other: DARIO drain Abdomen Left Lower Surgical Drain, Tube Output: 30 mL 03/09/2023 0:58 EST Urine Catheter 1,000 mL Other: DARIO drain Abdomen Left Lower Surgical Drain, Tube Output: 30 mL Vital Signs (last 24 hrs) Last Charted Temp Oral 36.7 DegC (MAR 09 11:03) Resp Rate 16 br/min (MAR 09 06:00) SBP 101 mmHg (MAR 09:) DBP 64 mmHg (MAR 09:) SpO2 94 % (NOV 28 11:03) Weight 136.7 kg (MAR 09 06:30) General: Alert and oriented, No acute distress. Eye: Pupils are equal, round and reactive to light, Extraocular movements are intact. HENT: Normocephalic, Normal hearing. Respiratory: Respirations are non-labored, Symmetrical chest wall expansion. Cardiovascular: Normal rate, Regular rhythm, No edema. Gastrointestinal: Soft, Non-distended, Appropriately tender. Robotic incisions clean dry intact with skin glue. Left lower quadrant DARIO drain to bulb suction with serosanguineous fluid. Genitourinary: No costovertebral angle tendernes (more content not included)... Normal [facility] Comment on above: Result Comment: Elec tronically Signed By: Chris JOHNSON, Chana Vargas.br\Date and Time Signed: 03/09/23 14:48 EST ABO/Rhon 03-08-2023 ABO/Rh Positive Invalid Interpretation Code [facility] Comment on above: Performed By: #### 1 [id number], [id number], 6487726, [id number] ####[facility] [address] [place] [address] ABO/Rh History Checkon 03-08 ABO/Rh History Check Verified Hx Blood Type Normal [facility] Comment on above: Performed By: #### 1 [id number], [id number], 3052606, [id number] ####[facility] [address] [place] [address] ABSCon 03-08-2023 ABSC Gel Interp Negative Normal [facility] Comment on above: Performed By: #### 2 [id number] #### [facility] [address] [place] [address] Auto Diffon 03-08-2023 Basophils/100 WBC (Bld) 0.3 % Normal 0.0-2.0 [facility] Comment on above: Order Comment: Order Added by Discern Expert. Performed By: #### 2 837749, 8552435 #### [facility] [address] [place] [address] Basophils/Leukocytes Auto (Bld) [Pure # fraction] 0.0 E9/L Normal 0.0-0.2 [facility] Comment on above: Order Comment: Order Added by Discern Expert. Performed By: #### 2 713651, 7754220 #### [facility] [address] [place] [address] Eosinophils/100 WBC (Bld) 0.1 % Normal 0.0-8.0 [facility] Comment on above: Order Comment: Order Added by Discern Expert. Performed By: #### 2 703697, 0280590 #### [facility] [address] [place] [address] Eosinophils/Leukocytes Auto (Bld) [Pure # fraction] 0.0 E9/L Normal 0.0-0.5 [facility] Comment on above: Order Comment: Order Added by Discern Expert. Performed By: #### 2 179484, 9627236 #### [facility] [address] [place] [address] Lymphocytes/100 WBC (Bld) 4.8 % Low 14.0-50.0 [facility] Comment on above: Order Comment: Order Added by Suman Expert. Performed By: #### 2 044675, 3763435 #### [facility] [address] [place] [address] Lymphocytes/Leukocytes Auto (Bld) [Pure # fraction] 0.7 E9/L Low 1.0-4.0 [facility] Comment on above: Order Comment: Order Added by Suman Expert. Performed By: #### 2 526196, 0039881 #### [facility] [address] [place] [address] Monocytes/100 WBC (Bld) 2.6 % Low 4.0-14.0 [facility] Comment on above: Order Comment: Order Added by Discern Expert. Performed By: #### 2 666019, 1162001 #### [facility] [address] [place] [address] Monocytes/Leukocytes Auto (Bld) [Pure # fraction] 0.4 E9/L Normal 0.2-1.0 [facility] Comment on above: Order Comment: Order Added by Discern Expert. Performed By: #### 2 610344, [id number] #### [facility] [address] [place] [address] Neutrophils/100 WBC (Bld) 92.2 % High 36.0-75.0 [facility] Comment on above: Order Comment: Order Added by Discern Expert. Performed By: #### 2 309336, 0314306 #### [facility] [address] [place] [address] Neutrophils/Leukocytes Auto (Bld) [Pure # fraction] 13.6 E9/L High 2.0-7.5 [facility] Comment on above: Order Comment: Order Added by Discern Expert. Performed By: #### 2 699293, 5370140 #### [facility] [address] [place] [address] BLOOD BANKOrdered By: Pao valadez on 03-08-2023 ABO/Rh Interp Positive Invalid Interpretation Code [facility] BB Subsection ABSC Gel Interp Negative (03/08/23 6:31 AM) Normal [facility] BB Subsection BMPon 03-08-2023 Anion gap [Moles/Vol] 17 mmol/L High 6-16 [facility] Comment on above: Order Comment: PACU Performed By: #### 2 916278, [id number] ####[facility] [address] [place] [address] Calcium [Mass/Vol] 8.2 mg/dL Low 8.9-11.1 [facility] Comment on above: Order Comment: PACU Performed By: #### 2 686847, 78560736 ####[facility] [address] [place] [address] Chloride [Moles/Vol] 101 mmol/L Normal 101-111 [facility] Comment on above: Order Comment: PACU Performed By: #### 2 421314, 07405106 ####[facility] [address] [place] [address] CO2 [Moles/Vol] 23 mmol/L Normal 21-31 [facility] Comment on above: Order Comment: PACU Performed By: #### 2 369457, [id number] ####[facility] [address] [place] [address] Creatinine [Mass/Vol] 1.1 mg/dL Normal 0.5-1.3 [facility] Comment on above: Order Comment: PACU Performed By: #### 2 394943, 50604507 ####[facility] [address] [place] [address] Glucose [Mass/Vol] 197 mg/dL Normal 55-199 [facility] Comment on above: Order Comment: PACU Result Comment: If t his glucose result represents a fasting glucose, interpretation should refer to the following reference range: 55-99 mg/dL Performed By: #### 2 829725, [id number] ####[facility] [address] [place] [address] Potassium [Moles/Vol] 4.2 mmol/L Normal 3.5-5.3 [facility] Comment on above: Order Comment: PACU Performed By: #### 2 221229, 15078259 ####[facility] [address] [place] [address] Sodium [Moles/Vol] 137 mmol/L Normal 135-145 [facility] Comment on above: Order Comment: PACU Performed By: #### 2 740384, 18000817 ####[facility] [address] [place] [address] Urea nitrogen [Mass/Vol] 15 mg/dL Normal 5-21 [facility] Comment on above: Order Comment: PACU Performed By: #### 2 909444, [id number] ####[facility] [address] [place] [address] Urea nitrogen/Creatinine [Mass ratio] 14 No Units Normal 10-20 [facility] Comment on above: Order Comment: PACU Performed By: #### 2 353984, [id number] ####[facility] [address] [place] [address] Blood Bank ID#on 03-08-2023 BBID# [id number] Invalid Interpretation Code [facility] Comment on above: Performed By: #### 1 7542396, 33265798, 3585452, 37353943 ####[facility] [address] [place] [address] Blood Gas Art, with Linda Valle, [place] 03-08-2023 a/A Ratio Art 17.60 % Normal >=0.80 [facility] Comment on above: Performed By: #### 2 951014, 92248006, 96412703, 1496203, 4695029 #### [facility] [address] [place] [address] AaDO2 Art 409.7 mmHg High 5.0-15.0 [facility] Comment on above: Performed By: #### 2 950400, 84677028, 30614606, 1716598, 8306058 #### [facility] [address] [place] [address] Allens Test Not Applicable Normal [facility] Comment on above: Performed By: #### 2 187878, 33889160, 85583138, 3729181, 4194579 #### [facility] [address] [place] [address] Base Excess Arterial -2.6 mmol/L Low >=2.8 [facility] Comment on above: Performed By: #### 2 377223, 09330186, 23040154, 0971554, 2340711 #### [facility] [address] [place] [address] cCa2+ Art 4.52 mg/dL Normal 4.40-5.30 [facility] Comment on above: Performed By: #### 2 506738, 66018475, 78886101, 1384678, 6785197 #### [facility] [address] [place] [address] cCl- Art 105.0 mmol/L Normal 101.0-111. 0 [facility] Comment on above: Performed By: #### 2 103942, 17313306, 20140894, 5897496, 5504190 #### [facility] [address] [place] [address] cGlu Art 207 mg/dL High 55-99 [facility] Comment on above: Performed By: #### 2 243759, 49897306, 98125954, 0118375, 6655255 #### [facility] [address] [place] [address] cK+ Art 4.2 mmol/L Normal 3.5-5.3 [facility] Comment on above: Performed By: #### 2 348470, 55348450, 95028319, 2057549, 0098657 #### [facility] [address] [place] [address] cLac Art 1.6 mmol/L Normal .5-2.2 [facility] Comment on above: Performed By: #### 2 796117, 17736633, 98212090, 6424986, 3230401 #### [facility] [address] [place] [address] chemist helper+ Art 140.0 mmol/L Normal 135.0-145. 0 [facility] Comment on above: Performed By: #### 2 521278, 20790126, 46768637, 5813872, 9263272 #### [facility] [address] [place] [address] Drawn by doctor OR Invalid Interpretation Code [facility] Comment on above: Performed By: #### 2 209997, 88160608, 45966580, 0511008, 2163245 #### [facility] [address] [place] [address] FCOHb Art 1.2 % Low 1.5-4.9 [facility] Comment on above: Result Comment: Refe rence range Nonsmoker <1.5% Smoker <5.0% Heavy Smoker <9.0% Performed By: #### 2 255249, 02700085, 09119608, 2102562, 5700312 #### [facility] [address] [place] [address] FIO2 BG 79 Invalid Interpretation Code [facility] Comment on above: Performed By: #### 2 843953, 50368777, 85040674, 1486900, 9057443 #### [facility] [address] [place] [address] FMetHb Art 0.2 % Normal 0.0-1.9 [facility] Comment on above: Performed By: #### 2 112690, 14299777, 97053252, 7811993, 5706079 #### [facility] [address] [place] [address] FO2Hb Art 95.9 % Normal 93.0-100.0 [facility] Comment on above: Performed By: #### 2 268039, 87881661, 94273657, 3463791, 9688034 #### [facility] [address] [place] [address] HCO3 (Bld) [Moles/Vol] 22.3 mmol/L Normal 22.0-26.0 [facility] Comment on above: Performed By: #### 2 816907, 95964250, 19304638, 5410076, 4821748 #### [facility] [address] [place] [address] Hemoglobin (Bld) [Mass/Vol] 15.5 g/dL Normal 12.0-17.0 [facility] Comment on above: Performed By: #### 2 345610, 72346203, 41121807, 4012033, 9521182 #### [facility] [address] [place] [address] Oxygen saturation in Blood 97.2 % Normal 95.0-100.0 [facility] Comment on above: Performed By: #### 2 096075, 32866500, 82396718, 3833171, 2455183 #### [facility] [address] [place] [address] P CO2 Arterial 47.0 mmHg High 35.0-45.0 [facility] Comment on above: Performed By: #### 2 784537, 84969133, 92555227, 8033313, 6443814 #### [facility] [address] [place] [address] P O2 Arterial 87.2 mmHg Normal 80.0-100.0 [facility] Comment on above: Performed By: #### 2 259431, 50173846, 24813570, 4472163, 0725348 #### [facility] [address] [place] [address] pH Arterial 7.317 Low 7.350-7.45 0 [facility] Comment on above: Performed By: #### 2 553459, 91569064, 45060827, 2206096, 2416988 #### [facility] [address] [place] [address] Sample Site R Radial Normal [facility] Comment on above: Performed By: #### 2 531746, 43070913, 43458686, 8231200, 8524432 #### [facility] [address] [place] [address] Sample Type Arterial Draw Normal [facility] Comment on above: Performed By: #### 2 884757, 57156269, 97584650, 1080163, 1941426 #### [facility] [address] [place] [address] CBC w/ Auto Diffon 3 Erythrocyte distribution width (RBC) [Ratio] 13.9 % Normal 10.9-14.2 [facility] Comment on above: Performed By: #### 2 608326, 6574462 #### [facility] [address] [place] [address] Hematocrit (Bld) [Volume fraction] 43.8 % Normal 37.7-49.0 [facility] Comment on above: Performed By: #### 2 475567, 5296509 #### [facility] [address] [place] [address] Hemoglobin (Bld) [Mass/Vol] 14.8 g/dL Normal 13.5-17.5 [facility] Comment on above: Performed By: #### 2 825154, 7671576 #### [facility] [address] [place] [address] MCH (RBC) [Entitic mass] 28.6 pg Normal 27.0-34.0 [facility] Comment on above: Performed By: #### 2 360931, 9860355 #### [facility] [address] [place] [address] MCHC (RBC) [Mass/Vol] 33.7 g/dL Normal 31.4-36.0 [facility] Comment on above: Performed By: #### 2 827578, 9632669 #### [facility] [address] [place] [address] MCV (RBC) [Entitic vol] 85.0 fL Normal 80.0-100.0 [facility] Comment on above: Performed By: #### 2 [id number], [id number] #### [facility] [address] [place] [address] Platelet mean volume (Bld) [Entitic vol] 7.0 fL Normal 6.4-10.8 [facility] Comment on above: Performed By: #### 2 825289, [id number] #### [facility] [address] [place] [address] Platelets (Bld) [#/Vol] 239.0 E9/L Normal 150.0-500. 0 [facility] Comment on above: Performed By: #### 2 013373, [id number] #### [facility] [address] [place] [address] RBC (Bld) [#/Vol] 5.2 E12/L Normal 4.3-5.9 [facility] Comment on above: Performed By: #### 2 414181, [id number] #### [facility] [address] [place] [address] WBC corrected for nucl RBC Auto (Bld) [#/Vol] 14.7 E9/L High 4.0-11.0 [facility] Comment on above: Result Comment: Slid e reviewed by BR. Performed By: #### 2 809538, [id number] #### [facility] [address] [place] [address] CHEMISTRYOrdered By: SYSTEM SYSTEM on 03-08-2023 Anion gap [Moles/Vol] 17 mmol/L High 6 - 16 mEq/L FT Remisol Calcium [Mass/Vol] 8.2 mg/dL Low 8.9 - 11. 1 mg/dL FT Remisol Chloride [Moles/Vol] 101 mmol/L Normal 101 - 1 11 mmol/L [facility] Remisol CO2 [Moles/Vol] 23 mmol/L Normal 21 - 31 mmol/L FT Remisol Creatinine [Mass/Vol] 1.1 mg/dL Normal 0.5 - 1.3 mg/dL FT Remisol GFR/1.73 sq M.predicted among non-blacks MDRD (S/P/Bld) [Vol rate/Area] 76 mL/min/1.73 m2 Normal >=59mL/min /1.73 m2 [facility] Chem S Comment on above: Interpretive Data: C hronic kidney disease could be indicated at eGFR's of less than 60 mL/min/1.73m2. Kidney failure is indicated at less than 15 mL/min/1.73m2. Glucose [Mass/Vol] 197 mg/dL Normal 55 - 199 mg/dL [facility] Remisol Comment on above: Interpretive Data: I f this glucose result represents a fasting glucose, interpretation should refer to the following reference range: 55-99 mg/dL Potassium [Moles/Vol] 4.2 mmol/L Normal 3.5 - 5.3 mmol/L FT Remisol Sodium [Moles/Vol] 137 mmol/L Normal 135 - 145 mmol/L FT Remisol Urea nitrogen [Mass/Vol] 15 mg/dL Normal 5 - 21 mg/dL [facility] Remisol Urea nitrogen/Creatinine [Mass ratio] 14 mg/mg Normal 10 - 20 FT Remisol Capillary Glucose POCon 11- Glucose [Mass/Vol] 243 mg/dL High 55-99 [facility] Comment on above: Result Comment: Filomena cage RN/ Performed By: #### 2 [id number], [id number], [id number], 3133913, 1127276 #### [facility] [address] [place] [address] Glucose [Mass/Vol] 148 mg/dL High 55-99 [facility] Comment on above: Result Comment: Lisette rachelle Meter Performed By: #### 2 295983, [id number], [id number], 3176383, [id number] #### [facility] [address] [place] [address] Consent for Procedure/Surger yon 03-08-2023 Consent for Procedure/Surgery [id number] Normal [facility] Consent for Procedure/Surgery [id number] Normal [facility] Consent for Treatmenton 02-11 Consent for Treatment [id number]#[id number] Normal [facility] FT Blood GasesOrdered By: Uriel Castano on 03-08-2023 a/A Ratio Art 17.60 % Normal >=0.80% [facility] Resp Auto SS AaDO2 Art 409.7 mm[Hg] High 5.0 - 15.0 mmHg [facility] Resp Auto SS Allens Test Not Applicable (03/08/23 1:30 PM) Normal [facility] Resp Auto SS Base Excess Arterial -2.6 mmol/L Low >=2.8mm ol/ L [facility] Resp Auto SS cCa2+ Art 4.52 mg/dL Normal 4.40 - 5.30 mg/dL [facility] Resp Auto SS cCl- Art 105.0 mmol/L Normal 101.0 - 111.0 mmol/L [facility] Resp Auto SS cGlu Art 207 mg/dL High 55 - 99 mg/dL [facility] Resp Auto SS cK+ Art 4.2 mmol/L Normal 3.5 - 5.3 mmol/L [facility] Resp Auto SS cLac Art 1.6 mmol/L Normal 0.5 - 2.2 mmol/L [facility] Resp Auto SS chemist helper+ Art 140.0 mmol/L Normal 135.0 - 145.0 mmol/L [facility] Resp Auto SS Drawn by doctor OR Invalid Interpretation Code [facility] Resp Auto SS FCOHb Art 1.2 % Low 1.5 - 4.9 % [facility] Resp Auto SS Comment on above: Interpretive Data: R eference range Nonsmoker <1.5% Smoker <5.0% Heavy Smoker <9.0% FMetHb Art 0.2 % Normal 0.0 - 1.9 % [facility] Resp Auto SS FO2Hb Art 95.9 % Normal 93.0 - 100.0 % [facility] Resp Auto SS HCO3 (Bld) [Moles/Vol] 22.3 mmol/L Normal 22.0 - 26.0 mmol/L [facility] Resp Auto SS Hemoglobin (Bld) [Mass/Vol] 15.5 g/dL Normal 12.0 - 17.0 gm/dL [facility] Resp Auto SS P CO2 Arterial 47.0 mm[Hg] High 35.0 - 45.0 mmHg [facility] Resp Auto SS P O2 Arterial 87.2 mm[Hg] Normal 80.0 - 100.0 mmHg [facility] Resp Auto SS pH (Bld) 7.317 [pH] Low 7.350 - 7.450 [facility] Resp Auto SS Sample Site R Radial (03/08/23 1:30 PM) Normal [facility] Resp Auto SS Sample Type Arterial Draw (03/08/23 1:30 PM) Normal [facility] Resp Auto SS Sodium [Moles/Vol] 79 mmol/L Invalid Interpretation Code [facility] Resp Auto SS H&P Updateon 03-08-2023 H&P Update [id number] Normal [facility] HEMATOLOGYOrdered By: SYSTEM SYSTEM on 03-08-2023 Basophils/100 WBC (Bld) 0.3 % Normal 0.0 - 2.0 % [facility] HemeAutoSS Basophils/Leukocytes Auto (Bld) [Pure # fraction] 0.0 E9/L Normal 0.0 - 0.2 E9/L [facility] HemeAutoSS Eosinophils/100 WBC (Bld) 0.1 % Normal 0.0 - 8.0 % [facility] HemeAutoSS Eosinophils/Leukocytes Auto (Bld) [Pure # fraction] 0.0 E9/L Normal 0.0 - 0.5 E9/L [facility] HemeAutoSS Lymphocytes/100 WBC (Bld) 4.8 % Low 14.0 - 50.0 % [facility] HemeAutoSS Lymphocytes/Leukocytes Auto (Bld) [Pure # fraction] 0.7 E9/L Low 1.0 - 4.0 E9/L [facility] HemeAutoSS Monocytes/100 WBC (Bld) 2.6 % Low 4.0 - 14.0 % [facility] HemeAutoSS Monocytes/Leukocytes Auto (Bld) [Pure # fraction] 0.4 E9/L Normal 0.2 - 1.0 E9/L [facility] HemeAutoSS Neutrophils/100 WBC (Bld) 92.2 % High 36.0 - 75.0 % [facility] HemeAutoSS Neutrophils/Leukocytes Auto (Bld) [Pure # fraction] 13.6 E9/L High 2.0 - 7.5 E9/L [facility] HemeAutoSS HEMATOLOGYOrdered By: Bassem Mcclain on 03-08-2023 Erythrocyte distribution width (RBC) [Ratio] 13.9 % Normal 10.9 - 14.2 % [facility] HemeAutoSS Hematocrit (Bld) [Volume fraction] 43.8 % Normal 37.7 - 49.0 % [facility] HemeAutoSS Hemoglobin (Bld) [Mass/Vol] 14.8 g/dL Normal 13.5 - 17.5 gm/dL [facility] HemeAutoSS MCH (RBC) [Entitic mass] 28.6 pg Normal 27.0 - 34.0 pg [facility] HemeAutoSS MCHC (RBC) [Mass/Vol] 33.7 g/dL Normal 31.4 - 36.0 gm/dL [facility] HemeAutoSS MCV (RBC) [Entitic vol] 85.0 fL Normal 80.0 - 100.0 fL [facility] HemeAutoSS Platelet mean volume (Bld) [Entitic vol] 7.0 fL Normal 6.4 - 10.8 fL [facility] HemeAutoSS Platelets (Bld) [#/Vol] 239.0 E9/L Normal 150.0 - 500.0 E9/L [facility] HemeAutoSS RBC (Bld) [#/Vol] 5.2 E12/L Normal 4.3 - 5.9 E12/L [facility] HemeAutoSS WBC corrected for nucl RBC Auto (Bld) [#/Vol] 14.7 E9/L High 4.0 - 11.0 E9/L [facility] HemeAutoSS Comment on above: Result Comment: Reina e reviewed by BRMadonna Main OR PACU I Recordon 02-11 Main OR PACU I Record PACU Phase I Docum ent Type FT Summary Primary Physician: Chana Perez MD Finalized Date/Time: 03/08/23 17:32:08 Pt. Name: EVELIA IBARRA Rayo TylerB./Sex: 1960 Male Med Rec #: [id number] Physician: Chana Perez MD Financial #: [id number] Pt. Type: O Room/Bed: Admit/Disch: 03/08/23 06:01:20 - Institution: Case Times PACU I FT Pre-Care Text: Identifies barriers to communication and implements measures to provide psychological support Develops individualized plan of care, and ensures continuity of care Maintains patient's dignity and privacy, and maintains patient confidentiality Identifies and reports philosophical, cultural, and spiritual beliefs and values Identifies individual values and wishes concerning care Implements aseptic technique, and administers prescribed antibiotic therapy and immunizing agents as ordered Evaluates postoperative tissue perfusion Implements thermoregulation measures, and monitors body temperature Evaluates postoperative respiratory status Evaluates postoperative cardiac status Evaluates postoperative neurological status Assesses pain control, collaborated in initiating patient-controlled analgesia and implements alternative methods of pain control Verifies allergies, administers prescribed medications and solutions, evaluates response to medications Entry 1 In PACU I 03/08/23 16:36:00 Discharge from PACU 03/08/23 17:06:00 I Outcomes Met? Yes Last Modified By: PADILLA DE LEÓN, BURTON P 03/08/23 17:31:55 Post-Care Text: The patient demonstrates knowledge of the expected response to the operative or invasive procedure The patient's care is consistent with the individualized perioperative plan of care The patient's right to privacy is maintained The patient's value system, lifestyle, ethnicity, and culture are considered, respected, and incorporated into the perioperative plan of care The patient participates in decisions affecting his or her perioperative plan of care The patient is free from signs and symptoms of infection The patient has wound/tissue perfusion consistent with or improved from baseline levels established preoperatively The patient is at or returning to normothermia at the conclusion of the immediate postoperative period The patient's respiratory function is consistent with or improved from baseline levels established preoperatively The patient's cardiovascular status is consistent with or improved from baseline levels established preoperatively The patient's cardiovascular status is consistent with or improved from baseline levels established preoperatively The patient demonstrates and/or reports adequate pain control throughout the perioperative period The patient received appropriate medication(s), safely administered during the perioperative period Acuity Level PACU I FT Entry 1 Start Time 03/08/23 16:36:00 Stop Time 03/08/23 17:06:00 Acuity Level Acuity Level I Last Modified By: BURTON CAUSEY RN 03/08/23 17:32:05 Finalized By: BURTON CAUSEY RN Document Signatures Signed By: BURTON CAUSEY RN 03/08/23 17:32 Normal [facility] Main OR Preoperative Recordo n 03-08-2023 Main OR Preoperative Record PreOp Document Type FT Summary Primary Physician: Chana Perez MD Finalized Date/Time: 03/08/23 08:04:28 Pt. Name: EVELIA IBARRA Rayo Bellamy/Sex: 1960 Male Med Rec #: [id number] Physician: Chana Perez MD Financial #: [id number] Pt. Type: Room/Bed: [place] [address] Admit/Disch: 03/08/23 06:01:20 - Institution: Case Times PreOp FT Pre-Care Text: Verifies consent for planned procedure, identifies individual values and wishes concerning care, includes family members in perioperative teaching Entry 1 Patient Times. In Pre Surgery 03/08/23 06:05:00 Out Pre Surgery 03/08/23 07:26:00 Outcomes Met? Yes Last Modified By: Hermann Liu Ii 03/08/23 08:04:26 Post-Care Text: The patient participates in decisions affecting his or her perioperative plan of care Finalized By: Hermann Liu Ii Document Signatures Signed By: Hermann Liu Ii 03/08/23 08:04 Normal [facility] Monitor Recordon 03-08-2023 Monitor Record [id number]#[id number] Normal [facility] Monitor Record [id number]#[id number] Normal [facility] Operative Reporton 3 Operative Report Patient: LIZZETH IBARRA Age: 62 years Sex: Male : 1960 Associated Diagnoses: None Author: Chana Perez MD Procedure Procedure Date: 03/08/2023. Confirmed: patient, procedure, site, safety procedures followed. Performed by: Chana Perez MD, anesthesiologist (CAA. Denise Morin MD, Nir Ann ). Type of procedure: 1. Robot Assisted Radical Prostatectomy 2. Bilateral pelvic lymph node dissection 3. Plastic Closure of Bladder neck . Supervised by: TOMER BRADEN MD. Informed consent: signed by patient. Indication: 62-year-old male with history of morbid obesity and BMI of 40, patient of Dr. Ardon with recently diagnosed favorable intermediate risk prostate cancer, cT2a, grade group 2, +5/15 cores including region of interest in the left peripheral zone at the mid gland, initial PSA 5.8. After discussion of risks and benefits of management options, patient elected to proceed with robotic assisted laparoscopic prostatectomy with bilateral pelvic lymph node dissection. Risks were discussed including but not limited to bleeding, pain, infection, damage to surrounding structures, urinary incontinence, bowel injury, erectile dysfunction, lymphocele, conversion to open, positional injury, anastomotic leak and stricture, ileus, positive surgical margin, and need for additional procedures.. Findings: Overall uneventful nerve-sparing radical prostatectomy en bloc with pelvic lymph dissection. Minimal lysis of adhesions to assist with bowel mobilization out of the pelvis. Added complexity to the case due to excess adipose tissue requiring additional dissection as well as deep and narrow pelvis. Bladder neck closure after prostatectomy. Mildly enlarged right external iliac lymph node.. Procedure tolerated: well. Specimen: sent to pathology, 1. Periprostatic fat 2. Prostate en bloc with seminal vesicles. Bilateral pelvic lymph nodes. Complications: none. management assistant: Edith South [employer]CH[employer]ICIAN EBL: 350 ml Fluids: 2.3 L crystalloid Antibiotics: Clindamycin, gentamicin (penicillin allergy) 5000 units of subcutaneous heparin given preop Anesthesia: General ET tube Procedure in Detail: Upon power up, the da Nevaeh Xi robotic system went through the self-testing process. The optics black and white balanced, as well crossbar calibration of the stereo endoscopes was completed. We draped the robotic arms in sterile plastic coverings, preparing them for later docking after the patient positioning was completed. The patient was brought into the OR and sequential compression devices were placed bilaterally. After induction of general anesthesia we placed the patient in supine, mild frog-leg position with padding of all the pressure points, shoulders, back, legs, and arms. We secured the patient to the table using Pagazzi Pad, safety straps and tilt test to 25 degrees Trendelenburg was performed to ensure patient remained in position. An operative timeout was performed, confirming the patient's identity, procedure and safety checks, and all present agreed to proceed. After the patient was prepped and draped in a sterile fashion, a 16Fr crystal catheter was inserted and placed to gravity drainage. IV antibiotics were administered prior to incision. A 1 cm vertical midline incision about 2 cm above the umbilicus was created sharply and carried through the subcutaneous tissue. Pneumo-peritoneum was created using veress needle introduced through this incision, confirming low pressures for appropriate placement. After four-quadrant insufflation was achieved, the first 8 mm robotic port was placed gricelda-umbilical for the 0 degree scope. The remaining ports were placed using the lens to visualize the abdominal wall. Three 8mm robotic ports and two expanded function dental assistant ports were used in total including a 12 mm air seal port in the right lower quadrant and a 5 mm port in midclavicular line. The patient was placed in 25 degree Trendelenburg, pneumoperitoneum at 10 mmHg. Following docking, the team evaluated the robotic arms and tower in relation to the patients legs and hands to avoid compression by the system. Prograsp, monopolar scissors and bipolar [place] forceps were used as our working instruments. At this point I went to the surgeon console to start the dissection. The peritoneal cavity was inspected and there is no evidence of trauma from our port placement. Minimal lysis of adhesions was done to the sigmoid colon to be able to retract the bowel from the pelvis. Starting with the posterior dissection, the base of the bladder at pouch of Gera was incised, which was noted to be very deep, taking care to stay superior to the perirectal fat. This space was developed bluntly with select bipolar electrocautery until the seminal vesicles and vas deferens were encountered. This was done with careful attention to cautery near the tips of the SV to avoid thermal damage to the neurovascular bundle. The vas deferens was dissected out and transec (more content not included)... Normal [facility] Comment on above: Result Comment: Elec tronically Signed By: Chris JOHNSON, Chana Vargas.erin\Date and Time Signed: 03/08/23 17:13 EST Progress Note-Physicianon Progress Note-Physician Patient: EVELIA IBARRA Age: 62 years Sex: Male : 1960 Associated Diagnoses: None Author: MD Denise, Nir Ann Preoperative Information Time patient last ate or drank:=== (npo 8 hours) Anesthesia history: Patient history: No prior anesthesia problems. Re-evaluation prior to induction: Completed, Initial evaluation reviewed. Review of Systems Respiratory: No shortness of breath. Cardiovascular: No chest pain. Hematology/Lymphatics: No bruising tendency, No bleeding tendency. Health Status Allergies: Allergic Reactions (All) Severity Not Documented Penicillins- Unsure. Current medications: (Selected) Inpatient Medications Ordered HYDROmorphone 1 mg/mL injectable solution: 0.4 mg = 0.4 mL, Injection, IV Push, q4min PRN Pain for 5 dose(s), Stop date Limited # of times, Routine, Start date 03/08/23 8:46:00 EST, 03/08/23 8:46:00 EST Lactated Ringers IV Bri 1000 mL 1,000 mL: 1,000 mL, IV, 100 mL/hr, Routine, Start date 03/08/23 8:46:00 EST, 10 hour(s), Total volume (mL): 1,000, 134.1 kg, 2.62, m2 Lactated Ringers IV Bri 1000 mL 1,000 mL: 1,000 mL, IV, 150 mL/hr, Routine, Start date 03/08/23 6:00:00 EST, 6.7 hour(s), Total volume (mL): 1,000, 134.1 kg, 2.62, m2 Sodium Chloride 0.9% IV Bri 500 mL 500 mL: 500 mL, IV, titrate, Routine, Start date 03/08/23 7:28:00 EST, Total volume (mL): 500, 134.1 kg, 2.62, m2 Zofran 4 mg/2 mL Injection: 4 mg = 2 mL, Injection, IV Push, Once PRN Nausea/Vomiting, Routine, Start date 03/08/23 8:46:00 EST, 03/08/23 8:46:00 EST Documented Medications Documented Farxiga 10 mg oral tablet: 10 mg = 1 tab(s), Oral, Daily, Refills(s) 0, Blood glucose amLODIPine-atorvastatin 5 mg-40 mg Tab: 1 tab(s), Oral, Daily, Refill(s) 0, High blood pressure ibuprofen 600 mg Tab: 600 mg = 1 tab(s), Oral, Daily, PRN as needed for pain, Refills(s) 0 metformin 500 mg Tab: 500 mg = 1 tab(s), Oral, Daily, Refills(s) 0, Blood glucose Problem list: All Problems High blood pressure / SNOMED CT 9669126385 / Confirmed Diabetes mellitus / SNOMED CT 792121082 / Confirmed Diabetes / SNOMED CT 466441176 / Confirmed 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 Canceled: Prostate nodule / SNOMED CT 6872517255 Histories Past Medical History: No active or resolved past medical history items have been selected or recorded. Family History: Heart disease Sister Mother () Alcoholism Brother () Glaucoma Mother () Brother () Acute myocardial infarction Father () Heart disease Father () Colon cancer stage 1 Brother () Procedure history: Prostatectomy using robotic assistance (7046071841) on 03/08/2023 at 62 Years. Arthroplasty of knee (95626426) on 08/14/2020 at 60 Years. Cholecystectomy (18892215). Colonoscopy (784915451). Excision of lesion of sweat gland (29184273). Social History Social & Psychosocial Habits Alcohol Comment: Denaron. - 07/30/2021 00:40 - Angela Araiza RN 02/15/2023 Use: Current Frequency: 1-2 times per month Substance Abuse 02/15/2023 Risk Assessment: Denies Substance Abuse Comment: Denaron. - 07/30/2021 00:40 - Angela Araiza RN Tobacco Comment: Hernandez. - 07/30/2021 00:40 - Angela Araiza RN 02/15/2023 Tobacco Use: Cigars or pipes daily wit Smokeless tobacco use: Never Type: Cigars Smoking Cessation Yes 02/15/2023 Type: Cigars Comment: cigars every once in a while - 02/15/2023 14:39 - Jerica Epperson RN Physical Examination Please see preop flow sheet Airway: Mallampati classification: II (soft palate, fauces, uvula visible). Respiratory: Lungs are clear to auscultation. Cardiovascular: Normal rate, Regular rhythm. Neurologic: Alert. Review / Management Results review Interpretation of Outside Results Chest x-ray results Radiology results ECG interpretation Condition Plan [place] [employer]hesi[employer] (ASA) physical status classification: Class III. Anesthetic Preoperative Plan Anesthesia: General. . Anesthetic plan, risks, benefits, and alternatives discussed with the patient and/or family. Risks discussed: nausea, vomiting, headache, sore throat, dental injury, serious complications. Patient verbalized understanding. Communication: face to face with patient 5 minutes. Normal [facility] Comment on above: Result Comment: Elec tronically Signed By: MD Denise, Nir Ann\.br\Date and Time Signed: 03/08/23 16:11 EST UA With Cult Reflexon 2022 Bilirubin Ql (U) Negative Normal Negative [facility] Comment on above: Performed By: #### 2 [id number], [id number], 41057858, [id number], [id number] #### [facility] [address] [place] [address] Clarity (U) SL CLOUDY Invalid Interpretation Code [facility] Comment on above: Performed By: #### 2 226756, [id number], 49025564, 5470714, [id number] #### [facility] [address] [place] [address] Coarse Granular Casts LM Ql (Urine sed) 0-3 Normal [facility] Comment on above: Performed By: #### 2 110819, 29098630, 13151402, 2200559, 1564838 #### [facility] [address] [place] [address] Color (U) YELLOW Normal Yellow [facility] Comment on above: Performed By: #### 2 862851, 46968883, 79124729, 7138709, 1138956 #### [facility] [address] [place] [address] Epithelial cells.renal LM.HPF (Urine sed) [#/Area] 0-2 Normal 0-2 [facility] Comment on above: Performed By: #### 2 344352, 76741577, 76610891, 7256270, 3913460 #### [facility] [address] [place] [address] Epithelial cells.squamous LM.HPF (Urine sed) [#/Area] 0-2 Normal 0-2 [facility] Comment on above: Performed By: #### 2 756961, 82119042, 70338278, 5548961, 2018891 #### [facility] [address] [place] [address] Glucose Test strip (U) [Mass/Vol] 3+ Abnormal Negative [facility] Comment on above: Performed By: #### 2 995217, 09799258, 82822272, 6293343, 6943795 #### [facility] [address] [place] [address] Hemoglobin Ql (U) 2+ Abnormal Negative [facility] Comment on above: Performed By: #### 2 327311, 09892438, 12659407, 7097871, 4291912 #### [facility] [address] [place] [address] Ketones (U) [Mass/Vol] Negative Normal Negative [facility] Comment on above: Performed By: #### 2 349689, 60527901, 45127463, 4183153, 3133808 #### [facility] [address] [place] [address] [place].plasma/[place] .RBC (Bld) [Mass ratio] 4-20 Normal 0-3 [facility] Comment on above: Performed By: #### 2 636354, 79903055, 28034774, 1659603, 3929978 #### [facility] [address] [place] [address] Mucus Ql (Urine sed) TRACE Normal [facility] Comment on above: Performed By: #### 2 183792, 00618411, 11223566, 6133696, 7195221 #### [facility] [address] [place] [address] Nitrite Ql (U) Negative Normal Negative [facility] Comment on above: Performed By: #### 2 420450, 34358101, 55650901, 3561993, 9006485 #### [facility] [address] [place] [address] pH (U) 6.0 [pH] Invalid Interpretation Code 5.0-9.0 [facility] Comment on above: Performed By: #### 2 243158, 92998689, 01690705, 6941483, 2428475 #### [facility] [address] [place] [address] Protein (U) [Mass/Vol] 2+ Abnormal Negative [facility] Comment on above: Performed By: #### 2 851668, 78229047, 12400865, 1644974, 2984198 #### [facility] [address] [place] [address] Specific gravity (U) [Rel density] >=1.030 Invalid Interpretation Code 1.005-1.03 0 [facility] Comment on above: Performed By: #### 2 364524, 84369095, 88456402, 5309651, 9643739 #### [facility] [address] [id number] [place] LM Ql (Urine sed) Present Normal [facility] Comment on above: Performed By: #### 2 333165, 60901756, 22588551, 1414568, 8079934 #### [facility] [address] [place] [address] Type of Urine collection method Crystal Normal [facility] Comment on above: Performed By: #### 2 072677, 31633069, 04348795, 5363203, 2871803 #### [facility] [address] [place], [place] [id number] Urobilinogen Qn (U) 0.2 {Roxana'U}/dL Normal 0.0-1.0 [facility] Comment on above: Performed By: #### 2 093712, 60242762, 25933562, 2890999, 2709063 #### [facility] [address] [place] [address] WBC Auto Ql (U) Negative Normal Negative [facility] Comment on above: Performed By: #### 2 288899, 89318330, 92494402, 5166676, 7576957 #### [facility] [address] [place] [address] WBC casts LM.LPF (Urine sed) [#/Area] 0-3 Normal [facility] Comment on above: Performed By: #### 2 963973, 18033751, 35032877, 8964108, 9427588 #### [facility] [address] [place] [address] WBC LM.HPF (Urine sed) [#/Area] 0-5 Normal 0-5 [facility] Comment on above: Performed By: #### 2 455537, 42650434, 77811939, 4791963, 0935068 #### [facility] [address] [place] [address] URINALYSISOrdered By: Kayy Auguste on 03-08-2023 Bilirubin Ql (U) Negative (03/08/23 8:08 AM) Normal Negative [facility] UA Auto SS Clarity (U) SL CLOUDY Invalid Interpretation Code [facility] UA Auto SS Coarse Granular Casts LM Ql (Urine sed) 0-3 (03/08/23 8:08 AM) Normal [facility] UA Auto SS Color (U) Yellow (03/08/23 8:08 AM) Normal Yellow [facility] UA Auto SS Epithelial cells.renal LM.HPF (Urine sed) [#/Area] 0-2 (03/08/23 8:08 AM) Normal 0-2 [facility] UA Auto SS Epithelial cells.squamous LM.HPF (Urine sed) [#/Area] 0-2 /HPF Normal 0-2/HPF [facility] UA Auto SS Glucose Test strip (U) [Mass/Vol] 3+ *ABN* (03/08/23 8:08 AM) Invalid Interpretation Code Negative [facility] UA Auto SS Hemoglobin Ql (U) 2+ *ABN* (03/08/23 8:08 AM) Invalid Interpretation Code Negative [facility] UA Auto SS Ketones (U) [Mass/Vol] Negative (03/08/23 8:08 AM) Normal Negative [facility] UA Auto SS [place].plasma/[place] .RBC (Bld) [Mass ratio] 4-20 /HPF Normal 0-3/HPF [facility] UA Auto SS Mucus Ql (Urine sed) Trace (03/08/23 8:08 AM) Normal [facility] UA Auto SS Nitrite Ql (U) Negative (03/08/23 8:08 AM) Normal Negative [facility] UA Auto SS pH (U) 6.0 *NA* (03/08/23 8:08 AM) Invalid Interpretation Code 5.0 - 9.0 [facility] UA Auto SS Protein (U) [Mass/Vol] 2+ *ABN* (03/08/23 8:08 AM) Invalid Interpretation Code Negative [facility] UA Auto SS Specific gravity (U) [Rel density] >=1.030 *NA* (03/08/23 8:08 AM) Invalid Interpretation Code 1.005 - 1.030 [facility] UA Auto SS [place] LM Ql (Urine sed) Present (03/08/23 8:08 AM) Normal [facility] UA Auto SS UA Spec Desc Crystal (03/08/23 8:08 AM) Normal [facility] UA Auto SS Urobilinogen Qn (U) 0.9623272 {Roxana'U}/dL Normal 0.0 - 1.0 EU/dL [facility] UA Auto SS WBC Auto Ql (U) Negative (03/08/23 8:08 AM) Normal Negative [facility] UA Auto SS WBC casts LM.LPF (Urine sed) [#/Area] 0-3 (03/08/23 8:08 AM) Normal [facility] UA Auto SS WBC LM.HPF (Urine sed) [#/Area] 0-5 /HPF Normal 0-5/HPF [facility] UA Auto SS eGFRon 03-08-2023 GFR/1.73 sq M.predicted among non-blacks MDRD (S/P/Bld) [Vol rate/Area] 76 mL/min/1.73 m2 Normal >=59 [facility] Comment on above: Order Comment: Order added by Discern Expert. Result Comment: Investor Relations Associate henri kidney disease could be indicated at eGFR's of less than 60 mL/min/1.73m2. Kidney failure is indicated at less than 15 mL/min/1.73m2. Performed By: #### 2 338021, [id number] ####[facility] [address] [place] [address] Outside Recordson 03-03-2023 Outside Records [id number] Normal [facility] Pathology Noteon 02-26-2023 Pathology Note [id number] Normal [facility] Consultation Noteon 02-25-20 Consultation Note [id number]#[id number] Normal [facility] Auto Diffon 02-15-2023 Basophils/100 WBC (Bld) 1.0 % Normal 0.0-2.0 [facility] Comment on above: Order Comment: Order Added by Discern Expert. Performed By: #### 2 249074, 84287226, 74229528, 1481202, 9419641 #### [facility] [address] [place] [address] Basophils/Leukocytes Auto (Bld) [Pure # fraction] 0.1 E9/L Normal 0.0-0.2 [facility] Comment on above: Order Comment: Order Added by Discern Expert. Performed By: #### 2 941832, 66387397, 24063001, 6849297, 4130604 #### [facility] [address] [place] [address] Eosinophils/100 WBC (Bld) 2.5 % Normal 0.0-8.0 [facility] Comment on above: Order Comment: Order Added by Discern Expert. Performed By: #### 2 729373, 70640254, 83982374, 0594298, 3004469 #### [facility] [address] [place] [address] Eosinophils/Leukocytes Auto (Bld) [Pure # fraction] 0.2 E9/L Normal 0.0-0.5 [facility] Comment on above: Order Comment: Order Added by Discern Expert. Performed By: #### 2 045299, 49160122, 93832335, 2948061, 3562854 #### [facility] [address] [place] [address] Lymphocytes/100 WBC (Bld) 27.0 % Normal 14.0-50.0 [facility] Comment on above: Order Comment: Order Added by Discern Expert. Performed By: #### 2 335336, 62152343, 79324759, 6924916, 6962860 #### [facility] [address] [place] [address] Lymphocytes/Leukocytes Auto (Bld) [Pure # fraction] 1.7 E9/L Normal 1.0-4.0 [facility] Comment on above: Order Comment: Order Added by Discern Expert. Performed By: #### 2 848525, 95081779, 04002062, 1611933, 8690072 #### [facility] [address] [place] [address] Monocytes/100 WBC (Bld) 7.2 % Normal 4.0-14.0 [facility] Comment on above: Order Comment: Order Added by Discern Expert. Performed By: #### 2 855882, 38033947, 73784558, 4119043, 6889816 #### [facility] [address] [place] [address] Monocytes/Leukocytes Auto (Bld) [Pure # fraction] 0.5 E9/L Normal 0.2-1.0 [facility] Comment on above: Order Comment: Order Added by Suman Expert. Performed By: #### 2 502593, 07478285, 40938197, 8426007, 1468166 #### [facility] [address] [place] [address] Neutrophils/100 WBC (Bld) 62.3 % Normal 36.0-75.0 [facility] Comment on above: Order Comment: Order Added by Suman Expert. Performed By: #### 2 851158, 74660924, 56244052, 2482993, 4972173 #### [facility] [address] [place] [address] Neutrophils/Leukocytes Auto (Bld) [Pure # fraction] 4.0 E9/L Normal 2.0-7.5 [facility] Comment on above: Order Comment: Order Added by Suman Expert. Performed By: #### 2 547822, 39352437, 76025493, 0776147, 7208367 #### [facility] [address] [place] [address] BMPon 02-15-2023 Anion gap [Moles/Vol] 12 mmol/L Normal 6-16 [facility] Comment on above: Performed By: #### 2 219470, 34873607, 63540152, 7011878, 0858804 #### [facility] [address] [place] [address] Calcium [Mass/Vol] 8.9 mg/dL Normal 8.9-11.1 [facility] Comment on above: Performed By: #### 2 123162, 85195396, 22581539, 7461753, 7992623 #### [facility] [address] [place] [address] Chloride [Moles/Vol] 108 mmol/L Normal 101-111 [facility] Comment on above: Performed By: #### 2 364945, 40592014, 03713253, 4990765, 5303863 #### [facility] [address] [place] [address] CO2 [Moles/Vol] 22 mmol/L Normal 21-31 [facility] Comment on above: Performed By: #### 2 186785, 28754517, 78963914, 0898597, 3560472 #### [facility] [address] [place] [address] Creatinine [Mass/Vol] 0.8 mg/dL Normal 0.5-1.3 [facility] Comment on above: Performed By: #### 2 049477, 82519079, 41683590, 1308477, 9071401 #### [facility] [address] [place] [address] Glucose [Mass/Vol] 164 mg/dL Normal 55-199 [facility] Comment on above: Result Comment: If t his glucose result represents a fasting glucose, interpretation should refer to the following reference range: 55-99 mg/dL Performed By: #### 2 257472, 75980412, 80419080, 2034630, 3648916 #### [facility] [address] [place] [address] Potassium [Moles/Vol] 3.7 mmol/L Normal 3.5-5.3 [facility] Comment on above: Performed By: #### 2 854163, 72054363, 94289523, 8914778, 7726113 #### [facility] [address] [place] [address] Sodium [Moles/Vol] 138 mmol/L Normal 135-145 [facility] Comment on above: Performed By: #### 2 348650, 41612464, 74414292, 6693646, 8086395 #### [facility] [address] [place] [address] Urea nitrogen [Mass/Vol] 13 mg/dL Normal 5-21 [facility] Comment on above: Performed By: #### 2 859223, 98882062, 11403671, 6112386, 7022889 #### [facility] [address] [place] [address] Urea nitrogen/Creatinine [Mass ratio] 16 No Units Normal 10-20 [facility] Comment on above: Performed By: #### 2 804670, 31937440, 90687890, 7846905, 1755362 #### [facility] [address] [place] [address] CBC w/ Auto Diffon 3 Erythrocyte distribution width (RBC) [Ratio] 13.8 % Normal 10.9-14.2 [facility] Comment on above: Performed By: #### 2 710039, 69411348, 45967668, 9425043, 2687487 #### [facility] [address] [place] [address] Hematocrit (Bld) [Volume fraction] 46.6 % Normal 37.7-49.0 [facility] Comment on above: Performed By: #### 2 935049, 13442356, 62615183, 1178185, 8857325 #### [facility] [address] [place] [address] Hemoglobin (Bld) [Mass/Vol] 15.8 g/dL Normal 13.5-17.5 [facility] Comment on above: Performed By: #### 2 741278, 66013819, 58657381, 7388679, 9418928 #### [facility] [address] [place] [address] MCH (RBC) [Entitic mass] 28.9 pg Normal 27.0-34.0 [facility] Comment on above: Performed By: #### 2 483649, 81480043, 35929783, 6067665, 2345352 #### [facility] [address] [place] [address] MCHC (RBC) [Mass/Vol] 34.0 g/dL Normal 31.4-36.0 [facility] Comment on above: Performed By: #### 2 770198, 36426102, 40215609, 6559564, 8617538 #### [facility] [address] [place] [address] MCV (RBC) [Entitic vol] 85.0 fL Normal 80.0-100.0 [facility] Comment on above: Performed By: #### 2 728489, 99107031, 09920475, 9789046, 9052574 #### [facility] [address] [place] [address] Platelet mean volume (Bld) [Entitic vol] 7.2 fL Normal 6.4-10.8 [facility] Comment on above: Performed By: #### 2 431030, 16556248, 75657449, 2069222, 9518451 #### [facility] [address] [place] [address] Platelets (Bld) [#/Vol] 281.0 E9/L Normal 150.0-500. 0 [facility] Comment on above: Performed By: #### 2 607218, 66949522, 40498598, 5281059, 2616426 #### [facility] [address] [place] [address] RBC (Bld) [#/Vol] 5.5 E12/L Normal 4.3-5.9 [facility] Comment on above: Performed By: #### 2 403915, 61094243, 58019146, 4806615, 9979290 #### [facility] [address] [place] [address] WBC corrected for nucl RBC Auto (Bld) [#/Vol] 6.5 E9/L Normal 4.0-11.0 [facility] Comment on above: Performed By: #### 2 796621, 75662475, 38867509, 6254707, 2795113 #### [facility] [address] [place] [address] CHEMISTRYOrdered By: SYSTEM SYSTEM on 02-15-2023 Anion gap [Moles/Vol] 12 mmol/L Normal 6 - 16 mEq/L [facility] Calcium [Mass/Vol] 8.9 mg/dL Normal 8.9 - 11. 1 mg/dL [facility] Chloride [Moles/Vol] 108 mmol/L Normal 101 - 1 11 mmol/L [facility] CO2 [Moles/Vol] 22 mmol/L Normal 21 - 31 mmol/L [facility] Creatinine [Mass/Vol] 0.8 mg/dL Normal 0.5 - 1.3 mg/dL [facility] GFR/1.73 sq M.predicted among non-blacks MDRD (S/P/Bld) [Vol rate/Area] 100 mL/min/1.73 m2 Normal >=59mL/min /1.73 m2 [facility] Chem S Comment on above: Interpretive Data: C hronic kidney disease could be indicated at eGFR's of less than 60 mL/min/1.73m2. Kidney failure is indicated at less than 15 mL/min/1.73m2. Glucose [Mass/Vol] 164 mg/dL Normal 55 - 199 mg/dL [facility] Comment on above: Interpretive Data: I f this glucose result represents a fasting glucose, interpretation should refer to the following reference range: 55-99 mg/dL Potassium [Moles/Vol] 3.7 mmol/L Normal 3.5 - 5.3 mmol/L [facility] Remisol Sodium [Moles/Vol] 138 mmol/L Normal 135 - 145 mmol/L [facility] Urea nitrogen [Mass/Vol] 13 mg/dL Normal 5 - 21 mg/dL [facility] Urea nitrogen/Creatinine [Mass ratio] 16 mg/mg Normal 10 - 20 [facility] Remisol COAGULATIONOrdered By: Tracey Hardwick on 02-15-2023 aPTT Coag (PPP) [Time] 32.7 s Normal 25.1 - 36.5 second(s) [facility] Auto Coag Comment on above: Interpretive Data: P arameter 15 days - 4 weeks 1 - 5 months 6 - 11 months 1 - 5 years 6 - 10 years 11 - 17 years PTT Mean: 35.4 (27.6-45.6) Mean: 33.5 (24.8-40.7) Mean: 32.4 (25.1-40.7) Mean: 31.6 (24.0-39.2) Mean: 31.6 (26.9-38.7) Mean: 31.0 (24.6-38.4) Pediatric Reference ranges were obtained from a study by donna Abel prepared from 1437 samples obtained at 7 different centers using the same coagulation reagent and instrumentation as [facility]. Currently there are no coagulation studies available worldwide for children to 14 days, and no normal ranges. Heparin therapeutic range (represented by Anti-Factor Xa activity of 0.2 - 0.4 U/mL) corresponds to PTT of 56.6 - 109.0 sec. INR Coag (PPP) [Relative time] 1.0 {INR} Invalid Interpretation Code [facility] Auto Coag Comment on above: Interpretive Data: I NR results are specifically intended to assess patients stabilized on long-term Anticoagulation therapy suggested INR s Less Intensive Anticoagulation 2.0 3.0 Conventional Range 3.0 4.5 PT Coag (PPP) [Time] 11.3 s Normal 9.4 - 1 2.5 second(s) [facility] Auto Coag Comment on above: Interpretive Data: 1 5 days - 4 weeks 1 - 5 months 6 -11 months 1 5 years 6 10 years 11 -17 years Mean: 11.2 (9.5 12.6) Mean: 11.0 (9.7 12.8) Mean: 11.0 (9.8 13.0) Mean: 11.3 (9.9 13.4) Mean: 11.7 (10.0 14.6) Mean: 11.8 (10.0 - 14.1) Pediatric Reference ranges were obtained from a study by Francis Manvel, et al. prepared from 1437 samples obtained at 7 different centers using the same coagulation reagent and instrumentation as [facility]. Currently there are no coagulation studies available worldwide for children to 14 days, and no normal ranges. Consent for Treatmenton Consent for Treatment [id number] Normal [facility] HEMATOLOGYOrdered By: SYSTEM SYSTEM on 02-15-2023 Basophils/100 WBC (Bld) 1.0 % Normal 0.0 - 2.0 % [facility] HemeAutoSS Basophils/Leukocytes Auto (Bld) [Pure # fraction] 0.1 E9/L Normal 0.0 - 0.2 E9/L [facility] HemeAutoSS Eosinophils/100 WBC (Bld) 2.5 % Normal 0.0 - 8.0 % [facility] HemeAutoSS Eosinophils/Leukocytes Auto (Bld) [Pure # fraction] 0.2 E9/L Normal 0.0 - 0.5 E9/L [facility] HemeAutoSS Lymphocytes/100 WBC (Bld) 27.0 % Normal 14.0 - 50.0 % [facility] HemeAutoSS Lymphocytes/Leukocytes Auto (Bld) [Pure # fraction] 1.7 E9/L Normal 1.0 - 4.0 E9/L [facility] HemeAutoSS Monocytes/100 WBC (Bld) 7.2 % Normal 4.0 - 14.0 % [facility] HemeAutoSS Monocytes/Leukocytes Auto (Bld) [Pure # fraction] 0.5 E9/L Normal 0.2 - 1.0 E9/L [facility] HemeAutoSS Neutrophils/100 WBC (Bld) 62.3 % Normal 36.0 - 75.0 % [facility] HemeAutoSS Neutrophils/Leukocytes Auto (Bld) [Pure # fraction] 4.0 E9/L Normal 2.0 - 7.5 E9/L [facility] HemeAutoSS HEMATOLOGYOrdered By: Anna Muir on 02-15-2023 Erythrocyte distribution width (RBC) [Ratio] 13.8 % Normal 10.9 - 14.2 % [facility] HemeAutoSS Hematocrit (Bld) [Volume fraction] 46.6 % Normal 37.7 - 49.0 % [facility] HemeAutoSS Hemoglobin (Bld) [Mass/Vol] 15.8 g/dL Normal 13.5 - 17.5 gm/dL [facility] HemeAutoSS MCH (RBC) [Entitic mass] 28.9 pg Normal 27.0 - 34.0 pg [facility] HemeAutoSS MCHC (RBC) [Mass/Vol] 34.0 g/dL Normal 31.4 - 36.0 gm/dL [facility] HemeAutoSS MCV (RBC) [Entitic vol] 85.0 fL Normal 80.0 - 100.0 fL [facility] HemeAutoSS Platelet mean volume (Bld) [Entitic vol] 7.2 fL Normal 6.4 - 10.8 fL [facility] HemeAutoSS Platelets (Bld) [#/Vol] 281.0 E9/L Normal 150.0 - 500.0 E9/L [facility] HemeAutoSS RBC (Bld) [#/Vol] 5.5 E12/L Normal 4.3 - 5.9 E12/L [facility] HemeAutoSS WBC corrected for nucl RBC Auto (Bld) [#/Vol] 6.5 E9/L Normal 4.0 - 11.0 E9/L [facility] HemeAutoSS PT & PTTon 02-15-2023 aPTT Coag (PPP) [Time] 32.7 second(s) Normal 25.1-36.5 [facility] Comment on above: Result Comment: Para meter 15 days - 4 weeks 1 - 5 months 6 - 11 months 1 - 5 years 6 - 10 years 11 - 17 years PTT Mean: 35.4 (27.6-45.6) Mean: 33.5 (24.8-40.7) Mean: 32.4 (25.1-40.7) Mean: 31.6 (24.0-39.2) Mean: 31.6 (26.9-38.7) Mean: 31.0 (24.6-38.4) Pediatric Reference ranges were obtained from a study by Francis Pichardo et al. prepared from 1437 samples obtained at 7 different centers using the same coagulation reagent and instrumentation as [facility]. Currently there are no coagulation studies available worldwide for children to 14 days, and no normal ranges. Heparin therapeutic range (represented by Anti-Factor Xa activity of 0.2 - 0.4 U/mL) corresponds to PTT of 56.6 - 109.0 sec. Performed By: #### 2 020951, 05591270, 47299920, 4959541, 8159059 #### [facility] [address] [place] [address] INR Coag (PPP) [Relative time] 1.0 {INR} Invalid Interpretation Code [facility] Comment on above: Result Comment: INR results are specifically intended to assess patients stabilized on long-term Anticoagulation therapy suggested INR?s ?Less Intensive Anticoagulation? 2.0 ? 3.0 Conventional Range 3.0 ? 4.5 Performed By: #### 2 628684, 91439600, 95758552, 1874404, 6886059 #### [facility] [address] [place] [address] PT Coag (PPP) [Time] 11.3 second(s) Normal 9.4-12.5 [facility] Comment on above: Result Comment: 15 d ays - 4 weeks 1 - 5 months 6 -11 months 1 ? 5 years 6 ? 10 years 11 -17 years Mean: 11.2 (9.5 ? 12.6) Mean: 11.0 (9.7 ? 12.8) Mean: 11.0 (9.8 ? 13.0) Mean: 11.3 (9.9 ? 13.4) Mean: 11.7 (10.0 ? 14.6) Mean: 11.8 (10.0 - 14.1) Pediatric Reference ranges were obtained from a study by Francis Pichardo et al. prepared from 1437 samples obtained at 7 different centers using the same coagulation reagent and instrumentation as [facility]. Currently there are no coagulation studies available worldwide for children to 14 days, and no normal ranges. Performed By: #### 2 438979, 62348410, 22330624, 9468361, 8769750 #### [facility] [address] [place] [address] UA With Cult Reflexon 2022 Bilirubin Ql (U) Negative Normal Negative [facility] Comment on above: Performed By: #### 1 7155817 ####[facility] [address] [place] [address] Clarity (U) CLEAR Normal Clear [facility] Comment on above: Performed By: #### 1 4623433 ####[facility] [address] [place] [address] Color (U) YELLOW Normal Yellow [facility] Comment on above: Performed By: #### 1 7593644 ####[address] [address] Epithelial cells.squamous LM.HPF (Urine sed) [#/Area] 0-2 Normal 0-2 [facility] Comment on above: Performed By: #### 1 2485993 ####[address] [address] Glucose Test strip (U) [Mass/Vol] 3+ Abnormal Negative [facility] Comment on above: Performed By: #### 1 5306166 ####[address] [address] Hemoglobin Ql (U) Negative Normal Negative [facility] Comment on above: Performed By: #### 1 4286229 ####[address] [address] Ketones (U) [Mass/Vol] Negative Normal Negative [facility] Comment on above: Performed By: #### 1 7730590 ####[address] [address] [place].plasma/[place] .RBC (Bld) [Mass ratio] 0-3 Normal 0-3 [facility] Comment on above: Performed By: #### 1 6852650 ####[facility] [address] [place] [address] Nitrite Ql (U) Negative Normal Negative [facility] Comment on above: Performed By: #### 1 3342791 ####[address] [address] pH (U) 6.5 [pH] Invalid Interpretation Code 5.0-9.0 [facility] Comment on above: Performed By: #### 1 0758702 ####[address] [address] Protein (U) [Mass/Vol] Negative Normal Negative Fi [facility] Comment on above: Performed By: #### 1 3489296 ####[facility] [address] [place] [address] Specific gravity (U) [Rel density] 1.010 Invalid Interpretation Code 1.005-1.03 0 [facility] Comment on above: Performed By: #### 1 8783413 ####[place] [address] Type of Urine collection method Clean Catch Normal [facility] Comment on above: Performed By: #### 1 4496734 ####[address] [address] Urobilinogen Qn (U) 0.2 {Roxana'U}/dL Normal 0.0-1.0 [facility] Comment on above: Performed By: #### 1 0090812 ####[place] [address] WBC Auto Ql (U) Negative Normal Negative [facility] Comment on above: Performed By: #### 1 6922101 ####[facility] [address] [place] [address] WBC LM.HPF (Urine sed) [#/Area] 0-5 Normal 0-5 [facility] Comment on above: Performed By: #### 1 7931969 ####[place] [id number] URINALYSISOrdered By: Tracey Hardwick on 02-15-2023 Bilirubin Ql (U) Negative (02/15/23 2:51 PM) Normal Negative [facility] UA Auto SS Clarity (U) Clear (02/15/23 2:51 PM) Normal Clear [facility] UA Auto SS Color (U) Yellow (02/15/23 2:51 PM) Normal Yellow [facility] UA Auto SS Epithelial cells.squamous LM.HPF (Urine sed) [#/Area] 0-2 /HPF Normal 0-2/HPF [facility] UA Auto SS Glucose Test strip (U) [Mass/Vol] 3+ *ABN* (02/15/23 2:51 PM) Invalid Interpretation Code Negative [facility] UA Auto SS Hemoglobin Ql (U) Negative (02/15/23 2:51 PM) Normal Negative [facility] UA Auto SS Ketones (U) [Mass/Vol] Negative (02/15/23 2:51 PM) Normal Negative [facility] UA Auto SS [place].plasma/[place] .RBC (Bld) [Mass ratio] 0-3 /HPF Normal 0-3/HPF [facility] UA Auto SS Nitrite Ql (U) Negative (02/15/23 2:51 PM) Normal Negative [facility] UA Auto SS pH (U) 6.5 *NA* (02/15/23 2:51 PM) Invalid Interpretation Code 5.0 - 9.0 [facility] Auto SS Protein (U) [Mass/Vol] Negative (02/15/23 2:51 PM) Normal Negative [facility] UA Auto SS Specific gravity (U) [Rel density] 1.010 *NA* (02/15/23 2:51 PM) Invalid Interpretation Code 1.005 - 1.030 [facility] UA Auto SS UA Spec Desc Clean Catch (02/15/23 2:51 PM) Normal [facility] UA Auto SS Urobilinogen Qn (U) 0.5010128 {Roxana'U}/dL Normal 0.0 - 1.0 EU/dL [facility]A Auto SS WBC Auto Ql (U) Negative (02/15/23 2:51 PM) Normal Negative [facility] UA Auto SS WBC LM.HPF (Urine sed) [#/Area] 0-5 /HPF Normal 0-5/HPF [facility]A Auto SS XR Chest 2 Viewson 3 XR Chest 2 Views Exam Date/Time: 02/15/2023 15:11 EST Reason for Exam: P.A.T. Report IMPRESSION: NO RADIOGRAPHIC EVIDENCE OF ACTIVE DISEASE IN THE CHEST. CLINICAL INFORMATION: P.A.T. COMPARISON: JULY 30, 2020 FINDINGS: Two views of the chest were obtained. Heart and mediastinum appear normal. The lungs appear clear. Visualized bony thorax and remainder of the chest appears unremarkable. Ordering Provider: Walker Ahmad FINAL REPORT Dictated: 02/15/2023 4:02 pm Gerardo Watson MD Signed (Electronic Signature): 02/15/2023 4:02 pm Signed by: Gerardo Watson MD Transcribed by: NOAM Technologist: CARON Technical Comments Radiation Dose: Ka,r in mGy = na DAP = na Normal [facility] eGFRon 02-15-2023 GFR/1.73 sq M.predicted among non-blacks MDRD (S/P/Bld) [Vol rate/Area] 100 mL/min/1.73 m2 Normal >=59 [facility] Comment on above: Order Comment: Order added by Discern Expert. Result Comment: Investor Relations Associate henri kidney disease could be indicated at eGFR's of less than 60 mL/min/1.73m2. Kidney failure is indicated at less than 15 mL/min/1.73m2. Performed By: #### 2 [id number] #### [facility] [address] [place] [address] Formson 01-20-2023 Forms [id number] Normal [facility] Screenson 01-19-2023 Screens [id number] Normal [facility] Ambulatory Visit Summaryon 1 Ambulatory Visit Summary STACEYEVELIA RAMIREZ Rayo :1960 Visit Date:01/18/2023 Ambulatory Visit Instructions Your Diagnosis Prostate cancer Prostate nodule BPH with obstruction/lower urinary tract symptoms Your Care Team Attending Physician - Chris JOHNSON, Chana Singh Primary Care Physician - Tomasz CIFUENTES DO, FAAFP This Is Your Medications List ciprofloxacin (Cipro 500 mg Tab) Contact prescribing physician if questions or concerns acetaminophen-oxycodone (Percocet 325 mg-5 mg Tab) amlodipine-atorvastatin (amLODIPine-atorvastatin 5 mg-40 mg Tab) dapagliflozin (Farxiga 10 mg oral tablet) diclofenac topical (Motrin Arthritis Pain) docusate (Colace 100 mg Cap) meloxicam (meloxicam 15 mg Tab) metformin (metformin 500 mg Tab) Procedures Performed Arthroplasty of knee (08/14/2020), Cholecystectomy, Colonoscopy. Discharge Vitals Height 182 cm Height 72 in Weight 132 kg Weight 290.4 lb BMI 39.85 What to do next You Need to Schedule the Following Appointments Follow Up with Chris JOHNSON, Chana Singh, KRISTIN, URO When: Where: Medications What How Much When Instructions Unchanged ciprofloxacin (Cipro 500 mg Tab) 1 Tablets By Mouth 2 times a day Start 3 days prior to the procedure Unchanged acetaminophen-oxycodone (Percocet 325 mg-5 mg Tab) See instructions 1-2 tab(s) Oral q4hr Contact prescribing physician if questions or concerns Unchanged amlodipine-atorvastatin (amLODIPine-atorvastatin 5 mg-40 mg Tab) By Mouth Every day Contact prescribing physician if questions or concerns Unchanged dapagliflozin (Farxiga 10 mg oral tablet) 1 Tablets By Mouth Every day Contact prescribing physician if questions or concerns Unchanged diclofenac topical (Motrin Arthritis Pain) Topical 4 times a day Contact prescribing physician if questions or concerns Unchanged docusate (Colace 100 mg Cap) 1 Capsules By Mouth 2 times a day as needed for for constipation Contact prescribing physician if questions or concerns Unchanged meloxicam (meloxicam 15 mg Tab) 1 Tablets By Mouth Every day Contact prescribing physician if questions or concerns Unchanged metformin (metformin 500 mg Tab) 1 Tablets By Mouth Every day Contact prescribing physician if questions or concerns Allergies penicillins (Unsure) Problems Ongoing - Any problem that you are currently receiving treatment for. BPH with obstruction/lower urinary tract symptoms Bronchitis Diabetes Elevated PSA Gall stone Glucosuria Hypertension Primary cancer of sweat gland Prostate cancer Prostate nodule Renal cyst Right hydrocele Education [employer] Laparoscopic Radical Prostatectomy, Care After The following information offers guidance on how to care for yourself after your procedure. Your health care provider may also give you more specific instructions. If you have problems or questions, contact your health care provider. What can I expect after the procedure? After the procedure, it is common to have: ? Mild pain in your lower abdomen. ? Blood and small clots in your urine for up to 3 weeks. ? Bladder spasms, or a need to urinate more often than usual. These may last for up to 2 weeks. ? Swelling in your penis and in the sac that contains your testicles (scrotum). After the thin, flexible urinary tube (Crystal catheter)is removed, it is common to have: ? Burning when you pass urine. This may last for up to 2 weeks after your catheter is removed. ? Trouble controlling when you urinate (incontinence). You may leak urine sometimes. Your ability to control your urine should improve as you heal. Follow these instructions at home: Medicines ? Take bsva-vbs-hmusuen and prescription medicines only as told by your health care provider. This includes any stool softeners. ? If you were given an antibiotic, take it as told by your health care provider. Do not stop taking the antibiotic early, even if you start to feel better. ? Ask your health care provider if the medicine prescribed to you: ? Requires you to avoid driving or using machinery. ? Can cause constipation. You may need to take these actions to prevent or treat constipation: ? Take uetf-kua-ukbvhmt or prescription medicines. ? Eat foods that are high in fiber, such as beans, whole grains, and fresh fruits and vegetables. ? Limit foods that are high in fat and processed sugars, such as fried or sweet foods. Eating and drinking ? Follow instructions from your health care provider about eating or drinking restrictions. ? Drink enough fluid to keep your urine pale yellow. Incision care and drain care ? Follow your health care provider's instructions about how to take care of your incisions and drains, if present. Make sure you: ? Wash your hands with soap and water for at least 20 seconds before and after you change your bandages (dressings) or handle drains and drainage tubes. If soap and water are not avail (more content not included)... Normal [facility] Patient Educationon 01-19-20 Patient Education Laparoscopic Radical Prostatectomy, Care After The following information offers guidance on how to care for yourself after your procedure. Your health care provider may also give you more specific instructions. If you have problems or questions, contact your health care provider. What can I expect after the procedure? After the procedure, it is common to have: ? Mild pain in your lower abdomen. ? Blood and small clots in your urine for up to 3 weeks. ? Bladder spasms, or a need to urinate more often than usual. These may last for up to 2 weeks. ? Swelling in your penis and in the sac that contains your testicles (scrotum). After the thin, flexible urinary tube (Crystal catheter)is removed, it is common to have: ? Burning when you pass urine. This may last for up to 2 weeks after your catheter is removed. ? Trouble controlling when you urinate (incontinence). You may leak urine sometimes. Your ability to control your urine should improve as you heal. Follow these instructions at home: Medicines ? Take vgqg-cng-kynwoif and prescription medicines only as told by your health care provider. This includes any stool softeners. ? If you were given an antibiotic, take it as told by your health care provider. Do not stop taking the antibiotic early, even if you start to feel better. ? Ask your health care provider if the medicine prescribed to you: ? Requires you to avoid driving or using machinery. ? Can cause constipation. You may need to take these actions to prevent or treat constipation: ? Take msam-bli-vfqgnwv or prescription medicines. ? Eat foods that are high in fiber, such as beans, whole grains, and fresh fruits and vegetables. ? Limit foods that are high in fat and processed sugars, such as fried or sweet foods. Eating and drinking ? Follow instructions from your health care provider about eating or drinking restrictions. ? Drink enough fluid to keep your urine pale yellow. Incision care and drain care ? Follow your health care provider's instructions about how to take care of your incisions and drains, if present. Make sure you: ? Wash your hands with soap and water for at least 20 seconds before and after you change your bandages (dressings) or handle drains and drainage tubes. If soap and water are not available, use hand ict systems test engineer. ? Change your dressings as told by your health care provider. ? Leave stitches (sutures), skin glue, or adhesive strips in place. These skin closures may need to stay in place for 2 weeks or longer. If adhesive strip edges start to loosen and curl up, you may trim the loose edges. Do not remove adhesive strips unless your health care provider tells you to do that. ? If you have a drain in any incision, follow instructions about how to care for your drain. Do not remove the drain tube or any dressing around it unless your health care provider approves. ? Check your incision site and the skin around your drain every day for signs of infection. Check for: ? More redness, swelling, or pain. ? New fluid or blood. Some dried fluid or blood may be present. ? Warmth. ? Pus or a bad smell. Catheter care ? Always wash your hands with soap and water for at least 20 seconds before and after touching your penis, catheter, and drainage bag. If soap and water are not available, use hand ict systems test engineer. ? Empty your collection bag every 3 hours during the day, or as often as told by your health care provider. ? Make sure to keep the catheter secured to keep from tugging on it or pulling it out. Make sure there are no kinks in the tubing that could block the flow of urine. Keep the urine collection bag below the level of your bladder. ? Clean the tip of your penis with soap and water twice a day, or as often as told by your health care provider. If you were given ointment to apply to the tip of your penis, follow instructions about how to do this. ? You will need to visit your health care provider to have your catheter removed. It may stay in for up to 3 weeks after your procedure. Managing pain and swelling If directed, put ice on the affected area. To do this: ? Put ice in a plastic bag. ? Place a towel between your skin and the bag. ? Leave the ice on for 20 minutes, 2?3 times a day. ? Remove the ice if your skin turns bright red. If you cannot feel pain, heat, or cold, you have a greater risk of damage to the area. Activity ? Do not lift anything that is heavier than 10 lb (4.5 kg), or the limit that you are told, until your health care provider says that it is safe. ? Avoid intense physical activity for as long as told by your health care provider. ? Avoid sitting for a long time without moving. Get up to take short walks every 1?2 hours. This improves your blood flow and breathing. Ask for help if you feel weak or unsteady. ? Return to your normal activities as told by your health care provider. Ask your health care (more content not included)... Normal [facility] Urology Office/Clinic Noteon 01-18-2023 Urology Office/Clinic Note Chief Complaint Discuss prostatectomy HPI Staff 62 year old male here to discuss prostatectomy. S/P TRUS/fusion BX done 10/16/22 showing GS 7 (3+4), GGS in 1 core and GS 6 (3+3), GG1 in 2 cores. MRI of prostate done 6/19/23 showing PI-RADS 4. Previous DX: prostate cancer, BPH w/LUTS, prostate nodule and glucosuria. Dysuria: no Incomplete bladder emptying: occasionally Hematuria: no Frequency:2-3 hours Urgency: less than half the time Nocturia: 2-3x's Stream: Pt. states if sitting he can empty his bladder better, Pt. states while standing his stream will start/stop/start Post void dripping: yes Wearing pads/ Depends: no Urge incontinence: no Stress incontinence: no Incontinence without Sensory Awareness: no Abdominal pain: no Flank pain: no History of Present Illness Tests reviewed: Reviewed Decipher results, pathology I have reviewed the previous health record information and history for this patient from Dr. Ardon and Dr. Spears I have reviewed and verified the staff HPI to be accurate for this encounter. There have been no associated fever, chills, flank pain, or blood in the urine. Denies any urinary infections since last encounter. Review of Systems PHQ Score Initial Depression Screen Score: 0 ROS - Provider Constitutional: denies weight loss, denies hot flashes. Eyes: denies eye problems. Gastrointestinal: denies nausea, denies vomiting. Cardiovascular: denies chest pain or angina. Integumentary: no dryness Musculoskeletal: denies musculoskeletal symptoms. ENMT: denies otolaryngeal symptoms. Respiratory: no shortness of breath. Heme/Lymph: denies easy bleeding tendency, denies easy bruising tendency. Psychiatric: no confusion, no anxiety. Genitourinary: See HPI. Physical Exam Vitals & Measurements HT: 72 in HT: 182 cm WT: 132 kg WT: 290.4 lb BMI: 39.85 General Appearance: alert, no distress, well nourished, well developed male. Genitourinary: Flank Pain: none. Bladder: nonpalpable. 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 Hx of lap bakari 25 yrs ago. Denies other abdominal surgeries, no mesh. Not taking blood thinners, denies stroke or ND MARIEL 12 - not a priority Portions of this record may have been created with voice recognition artificial intelligence software, specifically [employer], [employer] and or [employer]. Substitutions may have occurred due to the inherent limitations of voice recognition and artificial intelligence software. 1. Prostate cancer (C61: Malignant neoplasm of prostate) PSA: 01/2022 - 4.60 05/11/22 - 4.80 & 13% 08/25/22 - 5.80 [2] ALVINO 08/18/22 - 30-35 gms, Soft nodule at Lt base of prostate. [3] MRI of prostate 09/28/22 - PI-RADS 4 - posterior aspect of the L peripheral zone at the level of the midgland measuring 13 x 7 mm.[1] 47 cc prostate. S/p TRUS/bx 10/16/[address] Ardon- Initial path: GG1 in 4 cores including NIKOS Upstaged pathology through [facility] - Aidee 7 (3+4), GG2 in 2 cores including NIKOS and GS 6, GG1 in 3 cores. 5/15 cores [address] Pt saw Dr. Spears on 12/07/22. Pt admits he does not feel comfortable going through radiation therapy due to his personal cancer hx. Rather have the cancer removed from body. Dr. Spears ordered Decipher testing - high risk. We had a thorough discussion regarding Decipher testing. Decipher is a genomic assay that assesses the risk of disease progression after radical prostatectomy. This assay has been shown to be independently prognostic of rat poisoner in a high-risk surgical cohort. In a validation study, over 70% of high-risk patients had low genomic advertising coordinator (GC) scores and good prognosis, whereas patients with high GC scores had a cumulative incidence of metastasis > 25%. This assay may better enable application of directed, multimodal therapy for individual patients with high-risk rat poisoner. The Decipher test is used to individualize the management of high-risk patients (differentiating men who may have a treatment benefit from those who may not) and may have a financial impact on use of radiation therapy or hormonal therapy Again discussed treatment options for favorable intermediate risk prostate cancer- same outcomes with radiation and surgery. I showed him the [facility] nomogram which estimates his risk of organ confined disease to be 60%, extraprostatic extension 38%, lymph node metastasis 5%, and seminal vesical invasion 3 %. I discussed radical prostatectomy including robot-assisted laparoscopic and open approaches. I discussed the procedure in detail with the patient, including how the luma-idi system operates, setup and positioning, docking, extirpation of the prostate, both seminal vesicles, and regional lymph nodes. We discussed in details the levels of nerve sparing, (more content not included)... [facility] Comment on above: Result Comment: Elec tronically Signed By: Chris JOHNSON, Chana Singh\.br\Date and Time Signed: 01/18/23 17:01 EDT\.br\Electronically Co-Signed By: Anna Tyler\.br\Date and Time Co-Signed: 01/18/23 16:29 EDT Pathology Noteon 01-08-2023 Pathology Note [id number]:127 Normal [facility] Pathology Noteon 12-23-2022 Pathology Note [id number]#[id number]:127 [facility] Formson 12-22-2022 Forms [id number]:127 [facility] Pathology Noteon 12-22-2022 Pathology Note [id number]:127 [facility] Pathology Noteon 12-21-2022 Pathology Note [id number]:127 [facility] Consultation Noteon 12-19-19 Consultation Note [id number]:127 [facility] Pathology Noteon 12-18-2022 Pathology Note [id number]:127 [facility] Pathology Note [id number]:127 [facility] Screenson 12-16-2022 Screens [id number]:12 7 [facility] Ambulatory Visit Summaryon 0 12-15-2022 Ambulatory Visit Summary EVELIA IBARRA :1960 Visit Date:12/15/2022 Ambulatory Visit Instructions Your Diagnosis Prostate cancer BPH with obstruction/lower urinary tract symptoms Prostate nodule Glucosuria Tests Performed Urnls Dip Stick Auto w/o Microscopy POC 87971 Your Care Team Attending Physician - PILLO JOHSNON, Lonnie Nuñez Primary Care Physician - Tomasz CIFUENTES DO, FAAFP This Is Your Medications List Contact prescribing physician if questions or concerns acetaminophen-oxycodone (Percocet 325 mg-5 mg Tab) amlodipine-atorvastatin (amLODIPine-atorvastatin 5 mg-40 mg Tab) ciprofloxacin (Cipro 500 mg Tab) dapagliflozin (Farxiga 10 mg oral tablet) diclofenac topical (Motrin Arthritis Pain) docusate (Colace 100 mg Cap) meloxicam (meloxicam 15 mg Tab) metformin (metformin 500 mg Tab) Procedures Performed Arthroplasty of knee (08/14/2020), Cholecystectomy, Colonoscopy. Discharge Vitals Heart Rate (Peripheral) 93 Blood Pressure 136/79 Height 182 cm Height 72 in Weight 132 kg Weight 290.4 lb BMI 39.85 What to do next Scheduled Follow-Up Appointments Wednesday 12:45 PM EDT With: Chris JOHNSON, Chana Singh Where: [facility] Patient Educationon 12-16-19 Patient Education Oncology Prostate Cancer The prostate is a small gland that produces fluid that makes up semen (seminal fluid). It is located below the bladder in men, in front of the rectum. Prostate cancer is the abnormal growth of cells in the prostate gland. What are the causes? The exact cause of this condition is not known. What increases the risk? You are more likely to develop this condition if: ? You are 65 years of age or older. ? You have a family history of prostate cancer. ? You have a family history of breast and ovarian cancer. ? You have genes that are passed from parent to child (inherited), such as BRCA1 and BRCA2. ? You have Christian syndrome. men and men of descent are diagnosed with prostate cancer at higher rates than other men. The reasons for this are not well understood and are likely due to a combination of genetic and environmental factors. What are the signs or symptoms? Symptoms of this condition include: ? Problems with urination. This may include: ? A weak or interrupted flow of urine. ? Trouble starting or stopping urination. ? Trouble emptying the bladder all the way. ? The need to urinate more often, especially at night. ? Blood in urine or semen. ? Persistent pain or discomfort in the lower back, lower abdomen, or hips. ? Trouble getting an erection. ? Weakness or numbness in the legs or feet. How is this diagnosed? This condition can be diagnosed with: ? A digital rectal exam. For this exam, a health care provider inserts a gloved finger into the rectum to feel the prostate gland. ? A blood test called a prostate-specific antigen (PSA) test. ? A procedure in which a sample of tissue is taken from the prostate and checked under a microscope (prostate biopsy). ? An imaging test called transrectal ultrasonography. Once the condition is diagnosed, tests will be done to determine how far the cancer has spread. This is called staging the cancer. Staging may involve imaging tests, such as a bone scan, CT scan, PET scan, or MRI. Stages of prostate cancer The stages of prostate cancer are as follows: ? Stage 1 (I). At this stage, the cancer is found in the prostate only. The cancer is not visible on imaging tests, and it is usually found by accident, such as during prostate surgery. ? Stage 2 (II). At this stage, the cancer is more advanced than it is in stage 1, but the cancer has not spread outside the prostate. ? Stage 3 (III). At this stage, the cancer has spread beyond the outer layer of the prostate to nearby tissues. The cancer may be found in the seminal vesicles, which are near the bladder and the prostate. ? Stage 4 (IV). At this stage, the cancer has spread to other parts of the body, such as the lymph nodes, bones, bladder, rectum, liver, or lungs. Prostate cancer grading Prostate cancer is also graded according to how the cancer cells look under a microscope. This is called the Virden score and the total score can range from 6?10, indicating how likely it is that the cancer will spread (metastasize) to other parts of the body. The higher the score, the greater the likelihood that the cancer will spread. ? Virden 6 or lower: This indicates that the cancer cells look similar to normal prostate cells (well differentiated). ? Aidee 7: This indicates that the cancer cells look somewhat similar to normal prostate cells (moderately differentiated). ? Virden 8, 9, or 10: This indicates that the cancer cells look very different than normal prostate cells (poorly differentiated). How is this treated? Treatment for this condition depends on several factors, including the stage of the cancer, your age, personal preferences, and your overall health. Talk with your health care provider about treatment options that are recommended for you. Common treatments include: ? Observation for early stage prostate cancer (active surveillance). This involves having exams, blood tests, and in some cases, more biopsies. For some men, this is the only treatment needed. ? Surgery. Types of surgeries include: ? Open surgery (radical prostatectomy). In this surgery, a larger incision is made to remove the prostate. ? A laparoscopic radical prostatectomy. This is a surgery to remove the prostate and lymph nodes through several small incisions. It is often referred to as a minimally invasive surgery. ? A robotic radical prostatectomy. This is laparoscopic surgery to remove the prostate and lymph nodes with the help of robotic arms that are controlled by the surgeon. ? Cryoablation. This is surgery to freeze and destroy cancer cells. ? Radiation treatment. Types of radiation treatment include: ? External beam radiation. This type aims beams of radiation from outside the body at the prostate to destroy cancerous cells. ? Brachytherapy. This type uses radioactive needles, seeds, wires, or tubes that are implanted into the prostate gland. Like external be (more content not included)... Normal [facility] Urology Office/Clinic Noteon 12-15-2022 Urology Office/Clinic Note Chief Complaint 4 week follow up HPI Staff 4 week follow up. Previous DX: elevated PSA, BPH with LUTS, prostate nodule. MRI prostate done 09/25/22. S/p TRUS/fusion bx 10/16/22. PSA: 01/31- 4.60 Dysuria: denies pain and burning Incomplete bladder emptying: denies Hematuria: denies visible blood Frequency: denies Urgency: denies Nocturia: 1-2x a night Stream: denies hesitancy, good stream Leaking: denies Post void dripping: yes Wearing pads/ Depends: denies Urge incontinence: denies Stress incontinence: denies Incontinence without Sensory Awareness: denies Abdominal pain: denies Flank pain: denies History of Present Illness Tests reviewed: reviewed UA I have reviewed the previous health record information and history for this patient from Dr. Ardon. I have reviewed and verified the staff HPI to be accurate for this encounter. There have been no associated fever, chills, flank pain, or blood in the urine. Denies any urinary infections since last encounter. Review of Systems PHQ Score Initial Depression Screen Score: 0 ROS - Provider Constitutional: denies weight loss, denies hot flashes. Eyes: denies eye problems. Gastrointestinal: denies nausea, denies vomiting. Cardiovascular: denies chest pain or angina. Integumentary: no dryness Musculoskeletal: denies musculoskeletal symptoms. ENMT: denies otolaryngeal symptoms. Respiratory: no shortness of breath. Heme/Lymph: denies easy bleeding tendency, denies easy bruising tendency. Psychiatric: no confusion, no anxiety. Genitourinary: See HPI. Physical Exam Vitals & Measurements HR: 93(Peripheral) BP: 136/79 HT: 72 in HT: 182 cm WT: 132 kg WT: 290.4 lb BMI: 39.85 General Appearance: alert, no distress, well nourished, well developed male. Genitourinary: normal scrotum, normal testes, normal urethra, normal epididymis, normal vas deferens/spermatic cord. Flank Pain: none. Bladder: nonpalpable. Assessment/Plan 1. Prostate cancer (C61: Malignant neoplasm of prostate) MRI of prostate 09/28/22 - PI-RADS 4. A focal area involving the posterior aspect of the L peripheral zone at the level of the midgland measuring 13 x 7 mm.[1] TRUS/bx 10/16/22. [facility] pathology evaluation - GS 7 (3+4), GG2 in 1 core and GS 6 (3+3), GG1 in 2 cores. PSA: 01/2022 - 4.60 05/11/22 - 4.80 & 13% 08/25/22 - 5.80 [2] ALVINO 08/18/22 - 30-35 gms, Soft nodule at Lt base of prostate. [3] Pt saw Dr. Spears on 12/07/22. Pt admits he does not feel comfortable going through radiation therapy due to his personal cancer hx. Reports he would like to get a prostatectomy. Discussed pt to follow up with Dr. Perez or [facility] to discuss prostatectomy risk/benefits. 2. BPH with obstruction/lower urinary tract symptoms (N40.1: Benign prostatic hyperplasia with lower urinary tract symptoms) IPSS 17, QoL 4. Not currently taking any BPH medications. UA today negative for blood and infection. 3. Prostate nodule (N40.2: Nodular prostate without lower urinary tract symptoms) See #1. 4. Glucosuria (R81: Glycosuria) UA today shows >=1000 mg/dL. Pt is Type II diabetic. Reviewed pathology report and reviewed the [facility] reading of the same tissue submitted. He now has grade group 2 adenocarcinoma the prostate with a Aidee 3+4 equal 7. The patient has read through the prostate cancer booklet and has already seen Dr. Spears. He now chooses more of a surgical approach. He is leaning towards radical prostatectomy for treatment. As noted we will refer to Dr Perez for her opinion to get this performed locally. The patient agrees with the plan Portions of this record may have been created with voice recognition artificial intelligence software, specifically [employer], [employer] and or [employer]. Substitutions may have occurred due to the inherent limitations of voice recognition and artificial intelligence software. Follow-up With When Contact Information PILLO JOHNSON, Lonnie Nuñez, URL [facility] [employer] [address] [place] [id number]- Additional Instructions: w/ Dr. Perez to discuss prostatectomy Patient Education Prostate Cancer ILeslie, personally scribed for Dr. Ardon on 12/15/2022 15:23:06. . Documentation recorded by the Leslie brown acurately reflects the services(s) I performed and decisions made by me. Authenticated by Dr. Ardon on 12/15/2022 15:26:20. Problem List/Past Medical History Ongoing BPH with obstruction/lower urinary tract symptoms Bronchitis Diabetes Elevated PSA Gall stone Glucosuria Hypertension Primary cancer of sweat gland Prostate cancer Prostate nodule Renal cyst Right hydrocele Historical No qualifying data Procedure/Surgical History Arthroplasty of knee (08/14/2020), Cholecystectomy, Colonoscopy. Medications amLODIPine-atorvastatin 5 mg-40 mg Tab, Oral, Daily Cipro 500 mg Tab, 500 mg= 1 tab(s), Oral, BID (more content not included)... Normal [facility] Comment on above: Result Comment: Elec tronically Signed By: Lonnie ARDON MD\.br\Date and Time Signed: 12/15/22 15:27 EDT\.br\Electronically Co-Signed By: Leslie Powell\.br\Date and Time Co-Signed: 12/15/22 15:23 EDT Consultation Noteon 12-09-19 Consultation Note [id number]:127 [facility] Consultation Noteon 12-08-19 Consultation Note [id number]:127 [facility] Formson 12-07-2022 Forms [id number]#[id number]:127 [facility] PSA Total (Not a Screen)on 0 12-07-2022 PSA Total (Not a Screen) 6.730 ng/mL High 0.000-4.00 0 [facility] Comment on above: Result Comment: PERF ORMED BY: [facility] [address] [place] [id number] PATHOLOGIST [employer] OFFICER VERN JANG M.D. Performed By: #### P SATOTAL ####[place] [id number] [place] [id number] [facility] Pathology Noteon 12-07-2022 Pathology Note [id number]:127 [facility] Urinalysison 12-07-2022 Appearance (U) Clear Normal Clear [facility] Comment on above: Order Comment: Name Collection Type:: Clean-Voided Midstream Performed By: #### U A ####[facility] [id number] [place] [id number] [facility] Bilirubin,Urine Negative Normal Negative [facility] Comment on above: Order Comment: Name Collection Type:: Clean-Voided Midstream Performed By: #### U A ####[address] [address] [facility] Color (U) Yellow Normal Yellow [facility] Comment on above: Order Comment: Name Collection Type:: Clean-Voided Midstream Performed By: #### U A ####[address] [address] [facility] Glucose Ql (U) >=1000 High Normal [facility] Comment on above: Order Comment: Name Collection Type:: Clean-Voided Midstream Performed By: #### U A ####[address] [address] [facility] Ketones Ql (U) Trace High Negative [facility] Comment on above: Order Comment: Name Collection Type:: Clean-Voided Midstream Performed By: #### U A ####[address] [address] [facility] Leukocyte esterase Test strip Ql (U) Negative Normal Negative [facility] Comment on above: Order Comment: Name Collection Type:: Clean-Voided Midstream Performed By: #### U A ####[address] [address] [facility] Nitrite,Urine Negative Normal Negative [facility] Comment on above: Order Comment: Name Collection Type:: Clean-Voided Midstream Performed By: #### U A ####[address] [address] [facility] Occult Blood,Urine Negative Normal Negative [facility] Comment on above: Order Comment: Name Collection Type:: Clean-Voided Midstream Result Comment: PERF ORMED BY: [facility] [address] [place] [address] PATHOLOGIST [employer] OFFIC[employer] VERN JANG M.D. Performed By: #### U A ####[address] [address] [facility] pH (U) 6.0 [pH] Normal 5.0-9.0 [facility] Comment on above: Order Comment: Name Collection Type:: Clean-Voided Midstream Performed By: #### U A ####[place] [address] [place] [address] [facility] Protein,Urine Negative Normal Negative [facility] Comment on above: Order Comment: Name Collection Type:: Clean-Voided Midstream Performed By: #### U A ####[place] [address] [place] [address] [facility] Specificy [place],Urine 1.039 High 1.001-1.03 0 [facility] Comment on above: Order Comment: Name Collection Type:: Clean-Voided Midstream Performed By: #### U A ####[place] [address] [place] [address] [facility] Urobilinogen,Urine Normal Normal Normal [facility] Comment on above: Order Comment: Name Collection Type:: Clean-Voided Midstream Performed By: #### U A ####[address] [address] [facility] Screenson 11-16-2022 Screens [id number]:127 Normal [facility] Ambulatory Visit Summaryon 0 11-13-2022 Ambulatory Visit Summary EVELIA IBARRA :1960 Visit Date:11/13/2022 Ambulatory Visit Instructions Your Diagnosis Prostate cancer BPH with obstruction/lower urinary tract symptoms Prostate nodule Your Care Team Attending Physician - Lonnie ARDON MD Primary Care Physician - Tomasz CIFUENTES DO, FAAFP This Is Your Medications List Contact prescribing physician if questions or concerns acetaminophen-oxycodone (Percocet 325 mg-5 mg Tab) amlodipine-atorvastatin (amLODIPine-atorvastatin 5 mg-40 mg Tab) ciprofloxacin (Cipro 500 mg Tab) dapagliflozin (Farxiga 10 mg oral tablet) diclofenac topical (Motrin Arthritis Pain) docusate (Colace 100 mg Cap) meloxicam (meloxicam 15 mg Tab) metformin (metformin 500 mg Tab) Procedures Performed Arthroplasty of knee (08/14/2020), Cholecystectomy, Colonoscopy. Discharge Vitals Heart Rate (Peripheral) 85 Respiratory Rate 16 Blood Pressure 145/80 Height 182 cm Height 72 in Weight 132 kg Weight 290.4 lb BMI 39.85 What to do next Scheduled Follow-Up Appointments Wednesday 2:30 PM EDT With: Lonnie ARDON MD Where: [facility] [place] Normal [facility] Pathology Noteon 11-13-2022 Pathology Note [id number]:127 Normal [facility] Patient Educationon 11-14-19 23 Patient Education Oncology Prostate Cancer The prostate is a small gland that produces fluid that makes up semen (seminal fluid). It is located below the bladder in men, in front of the rectum. Prostate cancer is the abnormal growth of cells in the prostate gland. What are the causes? The exact cause of this condition is not known. What increases the risk? You are more likely to develop this condition if: ? You are 65 years of age or older. ? You have a family history of prostate cancer. ? You have a family history of breast and ovarian cancer. ? You have genes that are passed from parent to child (inherited), such as BRCA1 and BRCA2. ? You have Christian syndrome. men and men of descent are diagnosed with prostate cancer at higher rates than other men. The reasons for this are not well understood and are likely due to a combination of genetic and environmental factors. What are the signs or symptoms? Symptoms of this condition include: ? Problems with urination. This may include: ? A weak or interrupted flow of urine. ? Trouble starting or stopping urination. ? Trouble emptying the bladder all the way. ? The need to urinate more often, especially at night. ? Blood in urine or semen. ? Persistent pain or discomfort in the lower back, lower abdomen, or hips. ? Trouble getting an erection. ? Weakness or numbness in the legs or feet. How is this diagnosed? This condition can be diagnosed with: ? A digital rectal exam. For this exam, a health care provider inserts a gloved finger into the rectum to feel the prostate gland. ? A blood test called a prostate-specific antigen (PSA) test. ? A procedure in which a sample of tissue is taken from the prostate and checked under a microscope (prostate biopsy). ? An imaging test called transrectal ultrasonography. Once the condition is diagnosed, tests will be done to determine how far the cancer has spread. This is called staging the cancer. Staging may involve imaging tests, such as a bone scan, CT scan, PET scan, or MRI. Stages of prostate cancer The stages of prostate cancer are as follows: ? Stage 1 (I). At this stage, the cancer is found in the prostate only. The cancer is not visible on imaging tests, and it is usually found by accident, such as during prostate surgery. ? Stage 2 (II). At this stage, the cancer is more advanced than it is in stage 1, but the cancer has not spread outside the prostate. ? Stage 3 (III). At this stage, the cancer has spread beyond the outer layer of the prostate to nearby tissues. The cancer may be found in the seminal vesicles, which are near the bladder and the prostate. ? Stage 4 (IV). At this stage, the cancer has spread to other parts of the body, such as the lymph nodes, bones, bladder, rectum, liver, or lungs. Prostate cancer grading Prostate cancer is also graded according to how the cancer cells look under a microscope. This is called the Aidee score and the total score can range from 6?10, indicating how likely it is that the cancer will spread (metastasize) to other parts of the body. The higher the score, the greater the likelihood that the cancer will spread. ? Aidee 6 or lower: This indicates that the cancer cells look similar to normal prostate cells (well differentiated). ? Aidee 7: This indicates that the cancer cells look somewhat similar to normal prostate cells (moderately differentiated). ? Virden 8, 9, or 10: This indicates that the cancer cells look very different than normal prostate cells (poorly differentiated). How is this treated? Treatment for this condition depends on several factors, including the stage of the cancer, your age, personal preferences, and your overall health. Talk with your health care provider about treatment options that are recommended for you. Common treatments include: ? Observation for early stage prostate cancer (active surveillance). This involves having exams, blood tests, and in some cases, more biopsies. For some men, this is the only treatment needed. ? Surgery. Types of surgeries include: ? Open surgery (radical prostatectomy). In this surgery, a larger incision is made to remove the prostate. ? A laparoscopic radical prostatectomy. This is a surgery to remove the prostate and lymph nodes through several small incisions. It is often referred to as a minimally invasive surgery. ? A robotic radical prostatectomy. This is laparoscopic surgery to remove the prostate and lymph nodes with the help of robotic arms that are controlled by the surgeon. ? Cryoablation. This is surgery to freeze and destroy cancer cells. ? Radiation treatment. Types of radiation treatment include: ? External beam radiation. This type aims beams of radiation from outside the body at the prostate to destroy cancerous cells. ? Brachytherapy. This type uses radioactive needles, seeds, wires, or tubes that are implanted into the prostate gland. Like external be (more content not included)... Normal [facility] Screenson 11-13-2022 Screens [id number]:127 Normal [facility] Urology Office/Clinic Noteon 11-13-2022 Urology Office/Clinic Note Chief Complaint PO TRUS/BX HPI Staff 62 yo male here to review TRUS/bx and pathology report. Previous DX: elevated PSA, BPH with LUTS, prostate nodule. MRI prostate done 09/25/22. S/p TRUS/fusion bx 10/16/22. PSA: 01/31- 4.60 - Pt c/o having a change in his bowel movements since having procedure done. Use to go everyday and it was loose - now only going once every 2 days and it's hard at first but then loose. 05/11/22- 4.80 & 13% 08/25/22- 5.80 Dysuria: No Incomplete bladder emptying: No Hematuria: No Frequency: No Urgency: No Nocturia: Yes - mild - he gets up 1-2 times per night Stream: No Post void dripping: Yes, mild for quite awhile History of Present Illness Tests reviewed: reviewed UA and Path Report. I have reviewed the previous health record information and history for this patient from . I have reviewed and verified the staff HPI to be accurate for this encounter. There have been no associated fever, chills, flank pain, or blood in the urine. Denies any urinary infections since last encounter. Review of Systems PHQ Score Initial Depression Screen Score: 0 ROS - Provider Constitutional: denies weight loss, denies hot flashes. Eyes: denies eye problems. Gastrointestinal: denies nausea, denies vomiting. Cardiovascular: denies chest pain or angina. Integumentary: no dryness Musculoskeletal: denies musculoskeletal symptoms. ENMT: denies otolaryngeal symptoms. Respiratory: no shortness of breath. Heme/Lymph: denies easy bleeding tendency, denies easy bruising tendency. Psychiatric: no confusion, no anxiety. Genitourinary: See HPI. Physical Exam Vitals & Measurements HR: 85(Peripheral) RR: 16 BP: 145/80 HT: 72 in HT: 182 cm WT: 132 kg WT: 290.4 lb BMI: 39.85 General Appearance: alert, no distress, well nourished, well developed male. Assessment/Plan 1. Prostate cancer (C61: Malignant neoplasm of prostate) MRI of prostate 09/28/22 - PI-RADS 4. A focal area involving the posterior aspect of the L peripheral zone at the level of the midgland measuring 13 x 7 mm. TRUS/bx 10/16/22 Path Report - NIKOS is GS 6, Greatest Percent Core is 18%, All scores on the Rt, Highest GS is 6 Reviewed prior MRI of the prostate demonstrating no evidence of lymphadenopathy or prostatic capsular breach. Seminal vesicles that appear to be within normal limits as well. PSA: 01/2022 - 4.60 05/11/22 - 4.80 & 13% 08/25/22 - 5.80 ALVINO 08/18/22 - 30-35 gms, Soft nodule at Lt base of prostate. The pathology report, which shows the presence of prostate cancer, was disclosed to the patient in detail today. I discussed with the patient all the treatment options, including active surveillance, radical prostatectomy either by open, laparoscopic, or laparoscopic robotic technique. I discussed the radiation therapy options, including prostate brachytherapy,SBRT, external beam radiation therapy, and combinations of the two. Lupron hormonal therapy was also discussed. I went over the pros and cons of each therapy today, and this [place] prostate cancer book was provided. Follow up 3-4 weeks. All questions/concerns were discussed. Pt to call the office if he encounters any issues prior. Pt acknowledges understanding. -Will refer to radiation oncology. 2. BPH with obstruction/lower urinary tract symptoms (N40.1: Benign prostatic hyperplasia with lower urinary tract symptoms) UA today negative for blood and infection. Not taking any prostate meds. IPSS 20(18). 3. Prostate nodule (N40.2: Nodular prostate without lower urinary tract symptoms) See #1 Overall the patient is here with his today. As noted we discussed the positive pathology report with a Aidee 3+3 equal 6 adenocarcinoma. He is in a favorable risk group with a PSA less than 10. We have gone over all the treatment options and I utilized 3-dimensional diagrams to discuss treatment options. I recommend he see Dr. Spears from radiation oncology to discuss radiation related options. We have also discussed surgical options as noted. Follow-up in about 3 weeks with me but he will see Dr. Spears in the interim. Follow-up With When Contact Information Lonnie ARDON MD, URL In [address] [address]- Additional Instructions: Patient Education Prostate Cancer I, Kayla Okeefe, personally scribed for Dr. Ardon on 11/13/2022 07:35:22. . Documentation recorded by the scribe, Kayla Okeefe, accurately reflects the services(s) I performed and decisions made by me. Authenticated by Dr. Ardon on 11/13/2022 08:03:56. Portions of this record may have been created with voice recognition artificial intelligence software, specifically [employer], [employer] and or [employer]. Substitutions may have occurred due to the inherent limitations of voice recognition and artificial intelligence software. Problem Li (more content not included)... Normal [facility] Comment on above: Result Comment: Elec tronically Signed By: Lonnie ARDON MD\.br\Date and Time Signed: 11/13/22 08:07 EDT\.br\Electronically Co-Signed By: Kayla Okeefe\.br\Date and Time Co-Signed: 11/13/22 07:35 EDT Operative Reporton Operative Report [id number]:127 Normal [facility] Glucose Glucometer (BldC) [M ass/Vol]Ordered By: Lonnie Ardon on 10-16-2022 Glucose [Mass/Vol] 145 mg/dL [facility] Comment on above: Random Glucose Refer ence Range is dependent on time and content of last meal. Glucose of more than 200 mg/dL in a nonstressed, ambulatory subject supports the diagnosis of Diabetes Mellitus. Glucose Poct Glucometerson 0 10-16-2022 Commemt1 Glu2: Cleaned Meter Normal [facility] Comment on above: Result Comment: PERF ORMED BY: [facility] [place] [address] PATHOLOGIST [employer] OFFIC[employer] VERN JANG M.D. Performed By: #### G LULS ####Point of Care testing, Glucose [Mass/Vol] 145 mg/dL Normal [facility] Comment on above: Result Comment: [place] om Glucose Reference Range is dependent on time and content of last meal. Glucose of more than 200 mg/dL in a nonstressed, ambulatory subject supports the diagnosis of Diabetes Mellitus. Performed By: #### G LULS ####Point of Care testing, Zeeshan 10-16-2022 L ------ Specimen: [id number] Received: 10/16/22 Status: MARY Fan Num: [id number] Spec Type: Surgical Subm Dr: Lonnie Ardon MD Tissues: A Prostate - Needle Biopsy (LT BASE LAT) B Prostate - Needle Biopsy (LT BASE MEDIAL) C Prostate - Needle Biopsy (LEFT MID LATERL) D Prostate - Needle Biopsy (LT MID MEDIAL) E Prostate - Needle Biopsy (LT APEX LATRL) F Prostate - Needle Biopsy (LT APEX MED) G Prostate - Needle Biopsy (RT BASE LATRL) H Prostate - Needle Biopsy (RT BASE MEDIAL) I Prostate - Needle Biopsy (RT MID LATRL) J Prostate - Needle Biopsy (RT MID MEDIAL) K Prostate - Needle Biopsy (RT APEX LATRL) L Prostate - Needle Biopsy (RT APEX MEDIAL) M Prostate - Needle Biopsy (REGION OF INTRST) Procedures: HE/52, Gross/Micro L4/13, PIN Cocktail/7, IHC Multipl/7 Age/ Patient Sex Location Account Attending Physician Evelia Ibarra 62/M [place] [id number] Lonnie Ardon MD SPEC NUM: [id number] RECD: 10/16/22 STATUS: MARY ARNALDOYelena NUM: [id number] RUSSELL: 10/16/22- SUBM DR: Lonnie Ardon MD ENTERED: 10/16/22-1504 [facility] DR: ANTWON TYPE: Surgical DEPT: S ENTERED BY: [id number] RECV BY: [id number] ORDERED: HE/52, Gross/Micro L4/13, PIN Cocktail/7, IHC Multipl/7 ORDERED: HE/52, Gross/Micro L4/13, PIN Cocktail/7, USS/45, IHC Multipl/7 Supplemental Report Addendum 3 Entered: 04/21/23-7096 Supplemental for findings of [facility] consultation report with QA assessment: -Generally agree with findings of consultation report with occasional minor disagreement -Part D showing 2 tiny discontinuous tumor foci aggregating to about 0.5 mm, including 1 small cribriform tumor nest -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, as is supported by the PIN cocktail immunostain Specimen: [id number] Received: 10/16/22 Status: MARY Fan Num: [id number] Spec Type: Surgical Subm Dr: Lonnie Ardon MD Tissues: A Prostate - Needle Biopsy (LT BASE LAT) B Prostate - Needle Biopsy (LT BASE MEDIAL) C Prostate - Needle Biopsy (LEFT MID LATERL) D Prostate - Needle Biopsy (LT MID MEDIAL) E Prostate - Needle Biopsy (LT APEX LATRL) F Prostate - Needle Biopsy (LT APEX MED) G Prostate - Needle Biopsy (RT BASE LATRL) H Prostate - Needle Biopsy (RT BASE MEDIAL) I Prostate - Needle Biopsy (RT MID LATRL) J Prostate - Needle Biopsy (RT MID MEDIAL) K Prostate - Needle Biopsy (RT APEX LATRL) L Prostate - Needle Biopsy (RT APEX MEDIAL) M Prostate - Needle Biopsy (REGION OF INTRST) Procedures: HE/52, Gross/Micro L4/13, PIN Cocktail/7, IHC Multipl/7 Patient: Evelia Ibarra [id number] (Continued) Specimen: [id number] Received: 10/16/22 (Continued) Supplemental Report (Continued) Signed (signature on file) Andrew Guerrero MD 10/20/22 1616 Specimen: [id number] Received: 10/16/22 Status: MARY Fan Num: [id number] Spec Type: Surgical Subm Dr: Lonnie Ardon MD Tissues: A Prostate - Needle Biopsy (LT BASE LAT) B Prostate - Needle Biopsy (LT BASE MEDIAL) C Prostate - Needle Biopsy (LEFT MID LATERL) D Prostate - Needle Biopsy (LT MID MEDIAL) E Prostate - Needle Biopsy (LT APEX LATRL) F Prostate - Needle Biopsy (LT APEX MED) G Prostate - Needle Biopsy (RT BASE LATRL) H Prostate - Needle Biopsy (RT BASE MEDIAL) I Prostate - Needle Biopsy (RT MID LATRL) J Prostate - Needle Biopsy (RT MID MEDIAL) K Prostate - Needle Biopsy (RT APEX LATRL) L Prostate - Needle Biopsy (RT APEX MEDIAL) M Prostate - Needle Biopsy (REGION OF INTRST) Procedures: HE/52, Gross/Micro L4/13, PIN Cocktail/7, IHC Multipl/7 Patient: Evelia Ibarra [id number] (Continued) Specimen: [id number] Received: 10/16/22 (Continued) Supplemental Report (Continued) -Part F also showing tiny focus of high-grade PIN, as is supported by the PIN cocktail immunostain -Please also see detailed information in consultation letter on file in image attached Addendum Signed (signature on file) Drew-Corey Velasquez MD 04/21/23 1437 (more content not included)... Normal [facility] No Panel InformationOrdered By: Lonnie Ardon on 10-16-2022 Bedside Glucose Comment Glu2: cleaned meter [facility] Lab Reportson 10-08-2022 Lab Reports [id number]:127 Normal [facility] RAD - MISCon 10-08-2022 RAD - MISC [id number]#[id number]:127 Normal [facility] Screenson 10-07-2022 Screens [id number]:127 Normal [facility] Activated partial thrombopla stin time (aPTT) in platelet poor plasma by coagulation aOrdered By: Lonnie Ardon on 10-06-2022 aPTT Coag (PPP) [Time] 31.6 s 25.1-36.5 [facility] Basic Metabolic Panelon 09-11 Anion gap [Moles/Vol] 11.2 mmol/L Normal 6.0-15.0 [facility] Comment on above: Performed By: #### C BC, PT, BMP, PTT #### [facility] [address] Calcium [Mass/Vol] 8.5 mg/dL Low 8.6-10.3 [facility] Comment on above: Result Comment: PERF ORMED BY: [place] [address] PATHOLOGIST [employer] OFFICER VERN JANG M.D. Performed By: #### C BC, PT, BMP, PTT #### [facility] [address] Chloride [Moles/Vol] 105 mmol/L Normal 98-107 [facility] Comment on above: Performed By: #### C BC, PT, BMP, PTT #### [facility] [address] [place] [address] [place] CO2 [Moles/Vol] 26.1 mmol/L Normal 21.0-31.0 [facility] Comment on above: Performed By: #### C BC, PT, BMP, PTT #### [facility] [address] [place] [address] [place] Creatinine [Mass/Vol] 1.20 mg/dL Normal 0.70-1.30 [facility] Comment on above: Performed By: #### C BC, PT, BMP, PTT #### [facility] [address] [place] [id number] [place] GFR/1.73 sq M.predicted MDRD (S/P/Bld) [Vol rate/Area] mL/min/{1.73_m2} Normal [facility] Comment on above: Performed By: #### C BC, PT, BMP, PTT #### [facility] [address] [place] [address] [place] Glucose [Mass/Vol] 151 mg/dL High 70-100 [facility] Comment on above: Result Comment: [place] Glucose Reference Range is dependent on time and content of last meal. Glucose of more than 200 mg/dL in a nonstressed, ambulatory subject supports the diagnosis of Diabetes Mellitus. ADA recommended reference range Performed By: #### C BC, PT, BMP, PTT #### [facility] [address] Potassium [Moles/Vol] 4.3 mmol/L Normal 3.5-5.1 [facility] Comment on above: Performed By: #### C BC, PT, BMP, PTT #### [facility] [address] [place] [address] [place] Sodium [Moles/Vol] 138 mmol/L Normal 136-145 [facility] Comment on above: Performed By: #### C BC, PT, BMP, PTT #### [facility] [address] [place] [address] [place] Urea nitrogen [Mass/Vol] 15 mg/dL Normal 7-25 [facility] Comment on above: Performed By: #### C BC, PT, BMP, PTT #### [facility] [address] [place] [address] [place] Basophils Auto (Bld) [#/Vol] Ordered By: Lonine Ardon on 10-06-2022 Basophils (Bld) [#/Vol] 0.1 10*3/uL 0.0-0.2 [facility] Basophils/100 WBC Auto (Bld) Ordered By: Lonnie Ardon on 10-06-2022 Basophils/100 WBC (Bld) 1.2 % . [facility] Calcium [Mass/volume] in Ser um or PlasmaOrdered By: Lonnie Ardon on 10-06-2022 Calcium [Mass/Vol] 8.5 mg/dL 8.6-10.3 [facility] Carbon dioxide, total [Moles /volume] in Serum or PlasmaOrdered By: Lonnie Ardon on 10-06-2022 CO2 [Moles/Vol] 26.1 mmol/L 21.0-31.0 [facility] Chloride [Moles/volume] in S ibrahima or PlasmaOrdered By: Lonnie Ardon on 10-06-2022 Chloride [Moles/Vol] 105 mmol/L 98-107 [facility] Complete Blood Count Auto Di ffon 10-06-2022 Basophils (Bld) [#/Vol] 0.1 10*3/uL Normal 0.0-0.2 [facility] Comment on above: Result Comment: PERF ORMED BY: [place] [address] PATHOLOGIST [employer]IC[employer] VERN JANG M.D. Performed By: #### C BC, PT, BMP, PTT #### [facility] [address] Basophils/100 WBC (Bld) 1.2 % Normal . [facility] Comment on above: Performed By: #### C BC, PT, BMP, PTT #### [facility] [address] [place] [address] Eosinophils (Bld) [#/Vol] 0.2 10*3/uL Normal 0.0-0.45 [facility] Comment on above: Performed By: #### C BC, PT, BMP, PTT #### [facility] [address] [place] [address] [place] Eosinophils/100 WBC (Bld) 2.5 % Normal . [facility] Comment on above: Performed By: #### C BC, PT, BMP, PTT #### [facility] [address] [place] [address] [place] Erythrocyte distribution width (RBC) [Ratio] 13.8 % Normal 12.0-14.8 [facility] Comment on above: Performed By: #### C BC, PT, BMP, PTT #### [facility] [address] [place] [address] [place] Hematocrit (Bld) [Volume fraction] 46.9 % Normal 38.8-50.0 [facility] Comment on above: Performed By: #### C BC, PT, BMP, PTT #### [facility] [address] [place] [address] [place] Hemoglobin (Bld) [Mass/Vol] 15.8 g/dL Normal 13.0-17.0 [facility] Comment on above: Performed By: #### C BC, PT, BMP, PTT #### [address] Lymphocytes (Bld) [#/Vol] 2.0 10*3/uL Normal 1.00-4.8 [facility] Comment on above: Performed By: #### C BC, PT, BMP, PTT #### [address] Lymphocytes/100 WBC (Bld) 29.6 % Normal . [facility] Comment on above: Performed By: #### C BC, PT, BMP, PTT #### [address] MCH (RBC) [Entitic mass] 29.0 pg Normal 27.5-35.2 [facility] Comment on above: Performed By: #### C BC, PT, BMP, PTT #### [address] MCV (RBC) [Entitic vol] 86.0 fL Normal 83.5-101 [facility] Comment on above: Performed By: #### C BC, PT, BMP, PTT #### [address] Mean Corpuscular HGB Conc 33.7 g/dL Normal 32.5-35.6 [facility] Comment on above: Performed By: #### C BC, PT, BMP, PTT #### [address] Monocytes (Bld) [#/Vol] 0.5 10*3/uL Normal 0.0-0.8 [facility] Comment on above: Performed By: #### C BC, PT, BMP, PTT #### [address] Monocytes/100 WBC (Bld) 8.0 % Normal . [facility] Comment on above: Performed By: #### C BC, PT, BMP, PTT #### [address] Neutrophils (Bld) [#/Vol] 3.9 10*3/uL Normal 1.8-7.7 [facility] Comment on above: Performed By: #### C BC, PT, BMP, PTT #### [address] Neutrophils/100 WBC (Bld) 58.7 % Normal . [facility] Comment on above: Performed By: #### C BC, PT, BMP, PTT #### [facility] [address] NRBC% 0.1 /100{WBC} Normal 0-0.5 [facility] Comment on above: Performed By: #### C BC, PT, BMP, PTT #### [address] Platelet mean volume (Bld) [Entitic vol] 7.0 fL Normal 6.6-10.1 [facility] Comment on above: Performed By: #### C BC, PT, BMP, PTT #### [address] Platelets (Bld) [#/Vol] 260 10*3/uL Normal 150-450 [facility] Comment on above: Performed By: #### C BC, PT, BMP, PTT #### [address] RBC (Bld) [#/Vol] 5.45 10*6/uL Normal 3.90-5.60 [facility] Comment on above: Performed By: #### C BC, PT, BMP, PTT #### [address] WBC (Bld) [#/Vol] 6.7 10*3/uL Normal 4.1-10.5 [facility] Comment on above: Performed By: #### C BC, PT, BMP, PTT #### [address] Creatinine [Mass/volume] in Serum or PlasmaOrdered By: Lonnie Ardon on 10-06-2022 Creatinine [Mass/Vol] 1.20 mg/dL 0.70-1.30 [facility] ECG 12 lead ECGon 10-06-2022 ECG 12 lead ECG [facility] [address] [place] [id number] Electrocardiograph Report Signed Patient: Evelia Ibarra MR#: [id number] 16 : 1960 Acct:[id number] Age/Sex: 62 / M ADM Date: 10/06/22 Loc: Room: Type: [facility] Attending Dr: Lonnie Ardon MD Ordering Provider: Lonnie Ardon MD Date of Service: 10/06/22 ECG/ECG 12 lead ECG: PST Copies to: Test Reason : Blood Pressure : / mmHG Vent. Rate : 079 BPM Atrial Rate : 079 BPM P-R Int : 180 ms QRS Dur : 106 ms QT Int : 388 ms P-R-T Axes : 047 -48 026 degrees QTc Int : 444 ms Normal sinus rhythm Left anterior fascicular block Possible Anterior infarct (cited on or before 30-NOV-2018) Abnormal ECG When compared with ECG of 30-NOV-2018 08:23, No significant change was found Confirmed by СВЕТЛАНА [facility], BLADE ([id number]) on 10/07/2022 4:55:39 PM Referred By: DR ARDON Electronically Signed By:BLADE SOTOMAYOR MD FACC Transcribed By: MUS Signed By Blade Sotomayor MD, FACC 10/07/22 1655 Normal [facility] Eosinophils Auto (Bld) [#/Vo l]Ordered By: Lonnie Ardon on 10-06-2022 Eosinophils (Bld) [#/Vol] 0.2 10*3/uL 0.0-0.45 [facility] Eosinophils/100 WBC Auto (Bl d)Ordered By: Lonnie Ardon on 10-06-2022 Eosinophils/100 WBC (Bld) 2.5 % . [facility] Erythrocyte distribution wid th Auto (RBC) [Ratio]Ordered By: Lonnie Ardon on 10-06-2022 Erythrocyte distribution width (RBC) [Ratio] 13.8 % 12.0-14.8 [facility] Glucose [Mass/volume] in Ser um or PlasmaOrdered By: Lonnie Ardon on 10-06-2022 Glucose [Mass/Vol] 151 mg/dL 70-100 [facility] Comment on above: ADA recommended refe rence rangeRandom Glucose Reference Range is dependent on time and content of last meal. Glucose of more than 200 mg/dL in a nonstressed, ambulatory subject supports the diagnosis of Diabetes Mellitus. Hematocrit Auto (Bld) [Volum e fraction]Ordered By: Lonnie Ardon on 10-06-2022 Hematocrit (Bld) [Volume fraction] 46.9 % 38.8-50.0 [facility] Hemoglobin [Mass/volume] in BloodOrdered By: Lonnie Ardon on 10-06-2022 Hemoglobin (Bld) [Mass/Vol] 15.8 g/dL 13.0-17.0 [facility] Laboratory - CoagulationOrde red By: Lonnie Ardon on 10-06-2022 PT Coag (PPP) [Time] 11.3 s 9.0-12.9 [facility] Leukocytes [#/volume] correc coleman for nucleated erythrocytes in Blood by Automated counOrdered By: Lonnie Ardon on 10-06-2022 WBC corrected for nucl RBC Auto (Bld) [#/Vol] 6.7 10*3/uL 4.1-10.5 [facility] Lymphocytes Auto (Bld) [#/Vo l]Ordered By: Lonnie Ardon on 10-06-2022 Lymphocytes (Bld) [#/Vol] 2.0 10*3/uL 1.00-4.8 [facility] Lymphocytes/100 WBC Auto (Bl d)Ordered By: Lonnie Ardon on 10-06-2022 Lymphocytes/100 WBC (Bld) 29.6 % . [facility] MCH Auto (RBC) [Entitic mass ]Ordered By: Lonnie Ardon on 10-06-2022 MCH (RBC) [Entitic mass] 29.0 pg 27.5-35.2 [facility] MCHC Auto (RBC) [Mass/Vol]Or dered By: Lonnie Ardon on 10-06-2022 MCHC (RBC) [Mass/Vol] 33.7 g/dL 32.5-35.6 [facility] MCV Auto (RBC) [Entitic vol] Ordered By: Lonnie Ardon on 10-06-2022 MCV (RBC) [Entitic vol] 86.0 fL 83.5-101 [facility] Monocytes Auto (Bld) [#/Vol] Ordered By: Lonnie Ardon on 10-06-2022 Monocytes (Bld) [#/Vol] 0.5 10*3/uL 0.0-0.8 [facility] Monocytes/100 WBC Auto (Bld) Ordered By: Lonnie Ardon on 10-06-2022 Monocytes/100 WBC (Bld) 8.0 % . [facility] Neutrophils Auto (Bld) [#/Vo l]Ordered By: Lonnie Ardon on 10-06-2022 Neutrophils (Bld) [#/Vol] 3.9 10*3/uL 1.8-7.7 [facility] Neutrophils/100 WBC Auto (Bl d)Ordered By: Lonnie Ardon on 10-06-2022 Neutrophils/100 WBC (Bld) 58.7 % . [facility] No Panel InformationOrdered By: Lonnie Ardon on 10-06-2022 Estimated GFR (CKD-EPI) > 60.0 mL/Min [facility] Creatinine Clearance (Chem N/A [facility] Nucleated erythrocytes [Pres ence] in Blood by Automated countOrdered By: Lonnie Ardon on 10-06-2022 Nucleated RBC Auto Ql (Bld) 0.1 /100{WBC} 0-0.5 [facility] Partial Thromboplastin Timeo n 10-06-2022 aPTT Coag (Bld) [Time] 31.6 s Normal 25.1-36.5 [facility] Comment on above: Result Comment: PERF ORMED BY: [facility] [address] [place] [address] PATHOLOGIST [employer] OFFIC[employer] VERN JANG M.D. Performed By: #### C BC, PT, BMP, PTT #### [address] Patient Educationon 10-07-19 Patient Education Oncology Transrectal Ultrasound-Guided Prostate Biopsy, Care After The following information offers guidance on how to care for yourself after your procedure. Your health care provider may also give you more specific instructions. If you have problems or questions, contact your health care provider. What can I expect after the procedure? After the procedure, it is common to have: ? Pain and discomfort near your rectum, especially while sitting. ? Pax-colored urine due to small amounts of blood in your urine. ? A burning feeling while urinating. ? Blood in your stool (feces) or bleeding from your rectum. ? Blood in your semen. Follow these instructions at home: Medicines ? Take yhfs-bmq-ygunupt and prescription medicines only as told by your health care provider. ? If you were given a sedative during your procedure, it can affect you for several hours. Do not drive or operate machinery until your health care provider says that it is safe. ? If you were prescribed an antibiotic medicine, take it as told by your health care provider. Do not stop using the antibiotic even if you start to feel better. Activity ? Return to your normal activities as told by your health care provider. Ask your health care provider what activities are safe for you. ? Ask your health care provider when it is okay for you to resume sexual activity. ? You may have to avoid lifting. Ask your health care provider how much you can safely lift. General instructions ? Drink enough fluid to keep your urine pale yellow. ? Watch your urine, stool, and semen for new or increased bleeding. ? Keep all follow-up visits. This is important. Contact a health care provider if: ? You have any of the following: ? Blood clots in your urine or stool. ? Blood in your urine more than 2 weeks after the procedure. ? Blood in your semen more than 2 months after the procedure. ? New or increased bleeding in your urine, stool, or semen. ? Severe pain in your abdomen. ? Your urine smells bad or unusual. ? You have trouble urinating. ? Your lower abdomen feels firm. ? You have problems getting an erection. ? You have nausea or you vomit. Get help right away if: ? You have a fever or chills. This could be a sign of infection. ? You have bright red urine. ? You have severe pain that does not get better with medicine. ? You cannot urinate. Summary ? After this procedure, it is common to have pain and discomfort around your rectum, especially while sitting. ? You may have blood in your urine and stool after the procedure. ? It is common to have blood in your semen after this procedure. ? Get help right away if you have a fever or chills. This could be a sign of infection. This information is not intended to replace advice given to you by your health care provider. Make sure you discuss any questions you have with your health care provider. Document Revised: 09/22/2021 Document Reviewed: 09/22/2021 [employer] Patient Education ? 2022 [place]. Transrectal Ultrasound-Guided Prostate Biopsy A transrectal ultrasound-guided prostate biopsy is a procedure to remove samples of prostate tissue for testing. The prostate is a walnut-sized gland that is located below the bladder and in front of the rectum. During this procedure, a small device (probe) is lubricated and put inside the rectum. The probe sends out sound waves that make a picture of the prostate and surrounding tissues (transrectal ultrasound). The images are used to help guide the process of removing the samples. The samples are taken to a lab to be checked for prostate cancer. This procedure is usually done to evaluate the prostate gland of men who have raised (elevated) levels of prostate-specific antigen (PSA), which can be a sign of prostate cancer or prostate enlargement related to aging (benign prostatic hyperplasia, or BPH). Tell a health care provider about: ? Any allergies you have. ? All medicines you are taking, including vitamins, herbs, eye drops, creams, and kyio-xec-bjndvki medicines. ? Any problems you or family members have had with anesthetic medicines. ? Any bleeding problems you have. ? Any surgeries you have had. ? Any medical conditions you have. ? Any prostate infections you have had. What are the risks? Generally, this is a safe procedure. However, problems may occur, including: ? Prostate infection. ? Bleeding from the rectum. ? Blood in the urine. ? Allergic reactions to medicines. ? Damage to surrounding structures such as blood vessels, organs, or muscles. ? Difficulty passing urine. ? Nerve damage. This is usually temporary. What happens before the procedure? Medicines Ask your health care provider about: ? Changing or stopping your regular medicines. This is especially important if you are taking diabetes medicines or blood thinners. ? Taking medicines such as aspirin (more content not included)... Normal [facility] Platelet mean volume Auto (B ld) [Entitic vol]Ordered By: Lonnie Ardon on 10-06-2022 Platelet mean volume (Bld) [Entitic vol] 7.0 fL 6.6-10.1 [facility] Platelet poor plasma interna tional normalized ratio (INR) by coagulation assay (relatOrdered By: Lonnie Ardon on 10-06-2022 INR Coag (PPP) [Relative time] 1.0 {INR} [facility] Comment on above: INR Therapeutic Rang e A) Pre- and Peroperative OAT started two weeks before surgery. NOT HIP SURGERY: 1.5 - 2.5 HIP SURGERY: 2 - 3B) Primary and secondary prevention of venous THROMBOSIS: 2 - 3C) Active venous thrombosis, pulmonary embolismand prevention of recurrent venous thrombosis: 2 - 3D) Prevention of arterial thromboembolismincluding patients with mechanical heart valves: 3 - 4.5 Platelets Auto (Bld) [#/Vol] Ordered By: Lonnie Ardon on 10-06-2022 Platelets (Bld) [#/Vol] 260 10*3/uL 150-450 [facility] Potassium [Moles/volume] in Serum or PlasmaOrdered By: Lonnie Ardon on 10-06-2022 Potassium [Moles/Vol] 4.3 mmol/L 3.5-5.1 [facility] Prothrombin Time INRon 10-06 INR Coag (PPP) [Relative time] 1.0 {INR} Normal [facility] Comment on above: Result Comment: INR Therapeutic Range A) Pre- and Peroperative OAT started two weeks before surgery. NOT HIP SURGERY: 1.5 - 2.5 HIP SURGERY: 2 - 3 B) Primary and secondary prevention of venous THROMBOSIS: 2 - 3 C) Active venous thrombosis, pulmonary embolism and prevention of recurrent venous thrombosis: 2 - 3 D) Prevention of arterial thromboembolism including patients with mechanical heart valves: 3 - 4.5 Performed By: #### C BC, PT, BMP, PTT #### [facility] [address] PT Coag (PPP) [Time] 11.3 s Normal 9.0-12.9 [facility] Comment on above: Performed By: #### C BC, PT, BMP, PTT #### [facility] [address] [place] [id number] [facility] RBC Auto (Bld) [#/Vol]Ordere d By: Lonnie Ardon on 10-06-2022 RBC (Bld) [#/Vol] 5.45 10*6/uL 3.90-5.60 [facility] Serum or plasma anion gap de terminationOrdered By: Lonnie Ardon on 10-06-2022 Anion gap [Moles/Vol] 11.2 mmol/L 6.0-15.0 [facility] Sodium [Moles/volume] in Ser um or PlasmaOrdered By: Lonnie Ardon on 10-06-2022 Sodium [Moles/Vol] 138 mmol/L 136-145 [facility] Urea nitrogen [Mass/volume] in Serum or PlasmaOrdered By: Lonnie Ardon on 10-06-2022 Urea nitrogen [Mass/Vol] 15 mg/dL 7-25 [facility] Urology Office/Clinic Noteon 10-06-2022 Urology Office/Clinic Note Chief Complaint pt here today for f/u to MRI of prostate HPI Staff Pt is a 62 yr old Male here today for a f/u to MRI of prostate. MRI pelvis wo/w con done 09/25/22 shows a focal area of T2 hypointensity identified involving the posterior aspect of the left peripheral zone at the level of the mid gland measuring 13x7mm with associated restricted diffusion and low ADC value. Pts current PSA 5.8 done 08/25/22. Pts previous DX; BPH with obstruction/lower urinary tract symptoms, elevated PSA, prostate nodule, renal cyst, right hydrocele. Dysuria: denies Incomplete bladder emptying: sometimes Hematuria: denies Frequency: denies Urgency: denies Nocturia: 3x Stream: sometimes weak, some stop start Leaking: denies Post void dripping: yes Wearing pads/ Depends: denies Urge incontinence: denies Stress incontinence: denies Incontinence without Sensory Awareness: denies Abdominal pain: denies Flank pain: denies Sexual complaints: _ History of Present Illness Tests reviewed: reviewed UA, MRI, PSA. I have reviewed the previous health record information and history for this patient from Dr. Ardon. I have reviewed and verified the staff HPI to be accurate for this encounter. There have been no associated fever, chills, flank pain, or blood in the urine. Denies any urinary infections since last encounter. Review of Systems PHQ Score Initial Depression Screen Score: 0 ROS - Provider Constitutional: denies weight loss, denies hot flashes. Eyes: denies eye problems. Gastrointestinal: denies nausea, denies vomiting. Cardiovascular: denies chest pain or angina. Integumentary: no dryness Musculoskeletal: denies musculoskeletal symptoms. ENMT: denies otolaryngeal symptoms. Respiratory: no shortness of breath. Heme/Lymph: denies easy bleeding tendency, denies easy bruising tendency. Psychiatric: no confusion, no anxiety. Genitourinary: See HPI. Physical Exam Vitals & Measurements HR: 83(Peripheral) BP: 150/93 HT: 72 in HT: 182 cm WT: 133 kg WT: 292.6 lb BMI: 40.15 General Appearance: alert, no distress, well nourished, well developed male. Genitourinary: normal scrotum, normal testes, normal urethra, normal epididymis, normal vas deferens/spermatic cord. Flank Pain: none. Bladder: nonpalpable. 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 [1] 1. Elevated PSA (R97.20: Elevated prostate specific antigen [PSA]) PSA: 01/2022 - 4.60 05/11/22 - 4.80 & 13% 08/25/22 - 5.80 ALVINO 08/18/22 - 30-35 gms, Soft nodule at L base of prostate. [1] MRI of prostate 09/28/22 - PI-RADS 4. A focal area involving the posterior aspect of the L peripheral zone at the level of the midgland measuring 13 x 7 mm. Reviewed MRI with pt and recent PSA level which has risen again. Discussed current evidence and moving forward with MRI fusion bx. Not taking any BTs routinely however he does take Motrin occasionally for disk pain. Advised pt to not take Motrin around the time of bx. Will schedule MRI fusion bx of prostate. The procedural risks, benefits, details, and treatment alternatives have been discussed with the patient. These include minimal to severe bleeding, infection, blood in the semen, inability to urinate, and severe infection requiring hospitalization and IV antibiotics, among others. Full informed consent has been obtained. Will order General anesthesia. Risks discussed. 2. BPH with obstruction/lower urinary tract symptoms (N40.1: Benign prostatic hyperplasia with lower urinary tract symptoms) UA today negative for blood and infection. Not taking any prostate meds. IPSS 18 (19). 3. Prostate nodule (N40.2: Nodular prostate without lower urinary tract symptoms) ALVINO 08/18/22 - 30-35 gms, Soft nodule at L base of prostate. [1] Portions of this record may have been created with voice recognition artificial intelligence software, specifically [employer] and or [employer]. Substitutions may have occurred due to the inherent limitations of voice recognition and artificial intelligence software. Overall the PSA has again increased and the MRI is negative as noted above. The site in question is actually different than the palpated soft nodularity. I did inform the patient that biopsies across the entire prostate will be obtained, not only in the region of interest. He agrees with all that, understands the risks and wishes to proceed. Intravenous antibiotics will be administered intraoperatively. Follow-up With When Contact Information Lonnie ARDON MD, URL [address] [place], [place] [address] [place] [id number]- Additional Instructions: schedule fusion bx Patient Education Transrectal Ultrasound-Guided Prostate Biopsy, Care After Transrectal Ultrasound-Guided Prostate Biopsy IZelda, personally scribed for Dr. Ardon on 10/06/2022 10:25:38. Electronically signed by kevin Alvarez on (more content not included)... Normal [facility] Comment on above: Result Comment: Elec tronically Signed By: Lonnie ARDON MD\.br\Date and Time Signed: 10/06/22 10:28 EDT\.br\Electronically Co-Signed By: Zelda Alvarez\.br\Date and Time Co-Signed: 10/06/22 10:26 EDT WBC Auto (Bld) [#/Vol]Ordere d By: Lonnie Ardon on 10-06-2022 WBC (Bld) [#/Vol] 6.7 10*3/uL 4.1-10.5 [facility] XR chest 2V*on 10-06-2022 XR chest 2V* [facility] [place] [address] XRay Report Signed Patient: Evelia Ibarra MR#: [id number] 16 : 1960 Acct:[id number] Age/Sex: 62 / M ADM Date: 10/06/22 Loc: PS Room: Type: [facility] Attending Dr: Lonnie Ardon MD Copies to: Lonnie Ardon MD Ordering Provider: Lonnie Ardon MD Date of Service: 10/06/22 XR/XR chest 2V*: PST XR chest 2V* 10/06/2022 2:53 PM SIGNS AND SYMPTOMS: Presurgical testing, prostate biopsy PROTOCOL: Frontal and lateral graphs of the chest COMPARISON: 03/01/2020 FINDINGS: The trachea is midline. The heart and mediastinal structures are within normal limits. The lung parenchyma is clear. The bony thorax is intact. XR/XR chest 2V* IMPRESSION: No acute cardiopulmonary pathology. Impression dictated by: Orion Gonzáles M.D.10/06/2022 3:59 PM Dictation Location: [place] [address] Transcribed By: [facility] 10/06/22 1559 Dictated By: Orion Gonzáles II, MD 10/06/22 1558 Signed By: 10/06/22 1559 [facility] RAD - MRI Reporton 3 RAD - MRI Report [id number]:127 Normal [facility] RAD - MRI Report [id number]#[id number]:127 Normal [facility] Creatinine (Bld) [Mass/Vol]O rdered By: Lonnie Ardon on 09-28-2022 Creatinine [Mass/Vol] 0.9 mg/dL 0.6-1.3 [facility] Comment on above: ER/ESD physician is notified/shown all ISTAT results.Critical values may be confirmed by laboratory testing ifdeemed necessary by ER attending doctor. MR pelvis wo/w conon 023 MR pelvis wo/[place] [address] MRI Report Signed Patient: Evelia Ibarra MR#: [id number] 16 : 1960 Acct:[id number] Age/Sex: 62 / M ADM Date: 09/28/22 Loc: MR Room: Type: [facility] Attending Dr: Lonnie Ardon MD Copies to: Lonnie Ardon MD Ordering Provider: Lonnie Ardon MD Date of Service: 09/28/22 MR/MR pelvis wo/w con: R97.20 EXAMINATION: MR pelvis wo/w con HISTORY: Elevated PSA. COMPARISON: NONE TECHNIQUE: Multiparametric imaging of the prostate gland was performed with IV contrast. FINDINGS: Prostate Dimensions: 4.8 x 4.4 x 4.3 cm Prostate Volume: 47 mL Peripheral Zone: Heterogenous inT2 signal suggestive of prior prostatitis. A focal area of T2 hypointensity identified involving the posterior aspect of the left peripheral zone at the level of the mid gland measuring 13 x 7 mm with associated restricted diffusion and low ADC value. Please see series 5 image 21, series 650 image 19, series 600 image 19. Central/Transitional Zone: BPH changes. Seminal Vesicles: Unremarkable Neurovascular bundles: Unremarkable. Lymphadenopathy: No evidence of lymphadenopathy. Bladder: No focal lesion. Bowel: The visualized bowel is without acute abnormality. Peritoneal Cavity: No free fluid. Bones: No suspicious bony lesion. MR/MR pelvis wo/w con IMPRESSION: A focal area of T2 hypointensity identified involving the posterior aspect of the left peripheral zone at the level of the mid gland measuring 13 x 7 mm with associated restricted diffusion and low ADC value. Please see series 5 image 21, series 650 image 19, series 600 image 19.PI-RADS 4. Targeting on biopsy is recommended. Impression dictated by: Jarrod Wallis Jr., DMadonnaOMadonna09/28/2022 6:22 PM Dictation Location: [facility] Transcribed By: [facility] 09/28/221821 Dictated By: Jarrod Wallis Jr, 09/28/221812 Signed By: 09/28/221821 Normal [facility] MR prostate wo/w conon 09-28 MR prostate wo/w con [facility] [place] [address] MRI Report Signed Patient: Evelia Ibarra MR#: [id number] 16 : 1960 Acct:[id number] Age/Sex: 62 / M ADM Date: 09/28/22 Loc: MR Room: Type: [facility] Attending Dr: Lonnie Ardon MD Copies to: Lonnie Ardon MD Ordering Provider: Lonnie Ardon MD Date of Service: 09/28/22 MR/MR prostate wo/w con: R97.20 EXAMINATION: MR pelvis wo/w con HISTORY: Elevated PSA. COMPARISON: NONE TECHNIQUE: Multiparametric imaging of the prostate gland was performed with IV contrast. FINDINGS: Prostate Dimensions: 4.8 x 4.4 x 4.3 cm Prostate Volume: 47 mL Peripheral Zone: Heterogenous inT2 signal suggestive of prior prostatitis. A focal area of T2 hypointensity identified involving the posterior aspect of the left peripheral zone at the level of the mid gland measuring 13 x 7 mm with associated restricted diffusion and low ADC value. Please see series 5 image 21, series 650 image 19, series 600 image 19. Central/Transitional Zone: BPH changes. Seminal Vesicles: Unremarkable Neurovascular bundles: Unremarkable. Lymphadenopathy: No evidence of lymphadenopathy. Bladder: No focal lesion. Bowel: The visualized bowel is without acute abnormality. Peritoneal Cavity: No free fluid. Bones: No suspicious bony lesion. MR/MR prostate wo/w con IMPRESSION: A focal area of T2 hypointensity identified involving the posterior aspect of the left peripheral zone at the level of the mid gland measuring 13 x 7 mm with associated restricted diffusion and low ADC value. Please see series 5 image 21, series 650 image 19, series 600 image 19.PI-RADS 4. Targeting on biopsy is recommended. Impression dictated by: Jarrod Wallis Jr., Jayson09/28/2022 6:22 PM Dictation Location: [facility] Transcribed By: JEREMY 09/28/221821 Dictated By: Jarrod Wallis Jr, DO 09/28/221812 Signed By: 09/29/22 0903 Normal [facility] Lab Reportson 08-29-2022 Lab Reports [id number]:127 Normal [facility] Formson 08-19-2022 Forms [id number]:127 [facility] Physician Referralon 023 Physician Referral [id number]:127 Normal [facility] Screenson 08-19-2022 Screens [id number]:127 [facility] Patient Educationon 08-19-19 23 Patient Education Oncology Prostate Cancer Screening Prostate cancer screening is testing that is done to check for the presence of prostate cancer in men. The prostate gland is a walnut-sized gland that is located below the bladder and in front of the rectum in males. The function of the prostate is to add fluid to semen during ejaculation. Prostate cancer is one of the most common types of cancer in men. Who should have prostate cancer screening? Screening recommendations vary based on age and other risk factors, as well as between the professional organizations who make the recommendations. In general, screening is recommended if: ? You are age 50 to 70 and have an average risk for prostate cancer. You should talk with your health care provider about your need for screening and how often screening should be done. Because most prostate cancers are slow growing and will not cause , screening in this age group is generally reserved for men who have a 10- to 15-year life expectancy. ? You are younger than age 50, and you have these risk factors: ? Having a father, brother, or uncle who has been diagnosed with prostate cancer. The risk is higher if your family member's cancer occurred at an early age or if you have multiple family members with prostate cancer at an early age. ? Being a male who is Black or is of [place] or sub-Saharan descent. In general, screening is not recommended if: ? You are younger than age 40. ? You are between the ages of 40 and 49 and you have no risk factors. ? You are 70 years of age or older. At this age, the risks that screening can cause are greater than the benefits that it may provide. If you are at high risk for prostate cancer, your health care provider may recommend that you have screenings more often or that you start screening at a younger age. How is screening for prostate cancer done? The recommended prostate cancer screening test is a blood test called the prostate-specific antigen (PSA) test. PSA is a protein that is made in the prostate. As you age, your prostate naturally produces more PSA. Abnormally high PSA levels may be caused by: ? Prostate cancer. ? An enlarged prostate that is not caused by cancer (benign prostatic hyperplasia, or BPH). This condition is very common in older men. ? A prostate gland infection (prostatitis) or urinary tract infection. ? Certain medicines such as male hormones (like testosterone) or other medicines that raise testosterone levels. A rectal exam may be done as part of prostate cancer screening to help provide information about the size of your prostate gland. When a rectal exam is performed, it should be done after the PSA level is drawn to avoid any effect on the results. Depending on the PSA results, you may need more tests, such as: ? A physical exam to check the size of your prostate gland, if not done as part of screening. ? Blood and imaging tests. ? A procedure to remove tissue samples from your prostate gland for testing (biopsy). This is the only way to know for certain if you have prostate cancer. What are the benefits of prostate cancer screening? ? Screening can help to identify cancer at an early stage, before symptoms start and when the cancer can be treated more easily. ? There is a small chance that screening may lower your risk of dying from prostate cancer. The chance is small because prostate cancer is a slow-growing cancer, and most men with prostate cancer from a different cause. What are the risks of prostate cancer screening? The main risk of prostate cancer screening is diagnosing and treating prostate cancer that would never have caused any symptoms or problems. This is called overdiagnosisand overtreatment. PSA screening cannot tell you if your PSA is high due to cancer or a different cause. A prostate biopsy is the only procedure to diagnose prostate cancer. Even the results of a biopsy may not tell you if your cancer needs to be treated. Slow-growing prostate cancer may not need any treatment other than monitoring, so diagnosing and treating it may cause unnecessary stress or other side effects. Questions to ask your health care provider ? When should I start prostate cancer screening? ? What is my risk for prostate cancer? ? How often do I need screening? ? What type of screening tests do I need? ? How do I get my test results? ? What do my results mean? ? Do I need treatment? Where to find more information ? The [place] [employer]: www.cancer.org ? [place] [employer]: www.auanet.org Contact a health care provider if: ? You have difficulty urinating. ? You have pain when you urinate or ejaculate. ? You have blood in your urine or semen. ? You have pain in your back or in the area of your prostate. Summary ? Prostate cancer is a common type of cancer in men. The prostate gland is located below the bladder and in front of the rectum. This gland adds flu (more content not included)... Normal [facility] Urology Office/Clinic Noteon 08-18-2022 Urology Office/Clinic Note Chief Complaint Pt is here for elevated PSA HPI Staff Pt is here for Referral per Lorraine Reynolds due to elevated PSA. Current PSA 4.8 & 13% done 05/11/22. No other PSA in the past-checked [facility], checked [facility]. [facility] SCAN done 01/24/21 showed simple cysts in the renal cortices requiring no further follow up, no evidence of hydronephrosis. No urological procedures. Dysuria: denies Incomplete bladder emptying: denies Hematuria: denies Frequency: yes w/ fluid intake Urgency: denies Nocturia: 2x a night Stream: steady but on occasion slow/weak Leaking: denies Post void dripping: mild Wearing pads/ Depends: denies Urge incontinence: denies Stress incontinence: denies Incontinence without Sensory Awareness: denies Abdominal pain: denies Flank pain: denies Sexual complaints: _ History of Present Illness Tests reviewed: reviewed referral records. I have reviewed the previous health record information and history for this patient from Dr. Ardon. I have reviewed and verified the staff HPI to be accurate for this encounter. There have been no associated fever, chills, flank pain, or blood in the urine. Denies any urinary infections since last encounter. Review of Systems PHQ Score Initial Depression Screen Score: 0 ROS - Provider Constitutional: denies weight loss, denies hot flashes. Eyes: denies eye problems. Gastrointestinal: denies nausea, denies vomiting. Cardiovascular: denies chest pain or angina. Integumentary: no dryness Musculoskeletal: denies musculoskeletal symptoms. ENMT: denies otolaryngeal symptoms. Respiratory: no shortness of breath. Heme/Lymph: denies easy bleeding tendency, denies easy bruising tendency. Psychiatric: no confusion, no anxiety. Genitourinary: See HPI. Physical Exam Vitals & Measurements HR: 71(Peripheral) BP: 136/81 HT: 72 in HT: 182 cm WT: 133 kg WT: 292.6 lb BMI: 40.15 General Appearance: alert, no distress, well nourished, well developed male. Head: normocephalic . Eyes: normal orbit and globe. ENMT: normal examination of external ears. Chest: Lungs CTA, respirations non labored. Cardiovascular: regular rate and rhythm. Abdomen: soft, non distended, no tenderness, no mass or organomegaly, no hernia. Genitourinary: Mild R hydrocele, normal testes, normal urethra, normal epididymis, normal vas deferens/spermatic cord. Flank Pain: none. Bladder: nonpalpable. Penis: normal shaft, normal glans. Prostate: estimated weight 30-35 gms, Soft nodule at L base of prostate. Lymph Nodes: unremarkable palpation of the cervical area. Skin: warm, dry, no bruising. Psychiatric: cooperative, affect appropriate for age, normal judgement, euthymic mood. Assessment/Plan Evelia is a 62 yo male new pt referred by Lorraine eRynolds due to elevated PSA. 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 1. Elevated PSA (R97.20: Elevated prostate specific antigen [PSA]) PSA: 01/2022 - 4.60 05/11/22 - 4.80 & 13% No other PSAs on [employer] or in [employer]. Educated pt on PSAs, 5 things that cause PSA elevation. Explained that pt's PSA does not correlate with small prostate size. Also discussed somewhat abnormal digital exam. Discussed proceeding with MRI as well as PSA monitoring due to exam today. No known family hx of prostate ca. Explained future options pending results from MRI including close PSA monitoring vs prostate fusion bx. ALVINO today 30-35 gm. Soft nodule at L base of prostate. Follow up after MRI of prostate or sooner if needed. Pt understands and agrees with plan. -Pt to call once MRI is scheduled to schedule f/u appt. 2. BPH with obstruction/lower urinary tract symptoms (N40.1: Benign prostatic hyperplasia with lower urinary tract symptoms) IPSS 19. No sample provided for UA today. Not taking any prostate meds. Urinary sxs wax and wane. Discussed different treatment options for bladder outlet obstruction, including oral medication, operative interventions such as TURP versus less invasive options, such as Rezum or Urolift depending on prostate size and shape. No hx of infection. Pt is diabetic, attributes frequency due to water intake. Pt wishes to think about oral med before starting. 3. Renal cyst (N28.1: Cyst of kidney, acquired) CT 01/24/21 - Simple cysts in the renal cortices requiring no further follow up, no evidence of hydronephrosis. Simple cysts do not require surveillance. 4. Right hydrocele (N43.3: Hydrocele, unspecified) Mild R on exam today. 5. Prostate nodule (N40.2: Nodular prostate without lower urinary tract symptoms) See #1. Found on exam today. Overall this patient has the PSA of 4.8 up from 4.6. This was 4 months ago. This, combined with his abnormal ALVINO and fairly small prostate leads to the recommendation for imaging studies which may lead to a fusion biopsy. I explained all this to him. Suspicion is high for prostate cancer presence. Additionally he does have some (more content not included)... Normal [facility] Comment on above: Result Comment: Elec tronically Signed By: Lonnie ARDON MD\.br\Date and Time Signed: 08/18/22 08:12 EDT\.br\Electronically Co-Signed By: Zelda Alvarez\.br\Date and Time Co-Signed: 08/18/22 08:09 EDT Vital Signs Date Time Vital Sign Value Performing Clinician Facility 04-28-2023 09:48-0500 Blood Pressure Location Chana Chris [facility] 04-28-2023 09:48-0500 Diastolic blood pressure 84 mm[Hg] Chana Perez [facility] 04-28-2023 09:48-0500 Systolic blood pressure 128 mm[Hg] Chana Lue [facility] 03-29-2023 14:16-0500 Diastolic blood pressure 64 mm[Hg] Chana Lue [facility] 03-29-2023 14:16-0500 Mean blood pressure 86 mm[Hg] Chana Lue [facility] 03-29-2023 14:16-0500 Systolic blood pressure 130 mm[Hg] Chana Lue [facility] 03-29-2023 14:08-0500 Blood Pressure Location Chana Lue [facility] 03-29-2023 14:08-0500 Diastolic blood pressure 90 mm[Hg] Chana Lue [facility] 03-29-2023 14:08-0500 Heart rate 92 /min Chana Lue [facility] 03-29-2023 14:08-0500 Systolic blood pressure 141 mm[Hg] Chana Lue [facility] 03-22-2023 13:13-0500 Blood Pressure Location Chana Lue [facility] 03-22-2023 13:13-0500 Diastolic blood pressure 83 mm[Hg] Chana Lue [facility] 03-22-2023 13:13-0500 Systolic blood pressure 120 mm[Hg] Chana Lue [facility] 03-22-2023 13:12-0500 Diastolic blood pressure 83 mm[Hg] Chana Lue [facility] 03-22-2023 13:12-0500 Mean blood pressure 95 mm[Hg] Chana Lue [facility] 03-22-2023 13:12-0500 Systolic blood pressure 120 mm[Hg] Chana Lue [facility] 03-20-2023 16:22-0500 Diastolic blood pressure 85 mm[Hg] [facility] 03-20-2023 16:22-0500 Heart rate 91 /min [facility] 03-20-2023 16:22-0500 Mean blood pressure 99 mm[Hg] [facility] 03-20-2023 16:22-0500 Respiratory rate 15 /min [facility] 03-20-2023 16:22-0500 SaO2% (BldA) [Mass fraction] 96 % [facility] 03-20-2023 16:22-0500 Systolic blood pressure 126 mm[Hg] [facility] 03-20-2023 13:42-0500 Body temperature 98.24 [degF] [facility] 03-20-2023 13:42-0500 Diastolic blood pressure 73 mm[Hg] [facility] 03-20-2023 13:42-0500 Heart rate 106 /min [facility] 03-20-2023 13:42-0500 Respiratory rate 16 /min [facility] [facility] 03-20-2023 13:42-0500 SaO2% (BldA) [Mass fraction] 98 % [facility] 03-20-2023 13:42-0500 Systolic blood pressure 126 mm[Hg] Christina Cabrera [facility] 03-10-2023 15:03-0500 Hourly Rounding Chana Lue [facility] 03-10-2023 15:03-0500 Promise to Return Chana Lue [facility] 03-10-2023 14:00-0500 Hourly Rounding Chana Lue [facility] 03-10-2023 14:00-0500 Promise to Return Chana Lue [facility] 03-10-2023 13:00-0500 Hourly Rounding Chana Lue [facility] 03-10-2023 13:00-0500 Promise to Return Chana Lue [facility] 03-10-2023 11:58-0500 Heart rate 87 /min Chana Lue [facility] 03-10-2023 11:58-0500 SaO2% (BldA) [Mass fraction] 96 % Chana Lue [facility] 03-10-2023 11:58-0500 Respiratory rate 18 /min Chana Lue [facility] 03-10-2023 11:57-0500 Diastolic blood pressure 64 mm[Hg] Chana Lue [facility] 03-10-2023 11:57-0500 Mean blood pressure 86 mm[Hg] Chana Lue [facility] 03-10-2023 11:57-0500 Systolic blood pressure 128 mm[Hg] Chana Lue [facility] 03-10-2023 08:30-0500 Blood Pressure Location Chana Lue [facility] 03-10-2023 08:30-0500 Body temperature 98.24 [degF] Chana Lue [facility] 03-10-2023 08:30-0500 Diastolic blood pressure 70 mm[Hg] Chana Lue [facility] 03-10-2023 08:30-0500 Heart rate 96 /min Chana Lue [facility] 03-10-2023 08:30-0500 Mean blood pressure 89 mm[Hg] Chana Lue [facility] 03-10-2023 08:30-0500 Respiratory rate 18 /min Chana Lue [facility] 03-10-2023 08:30-0500 SaO2% (BldA) [Mass fraction] 93 % Chana Lue [facility] 03-10-2023 08:30-0500 Systolic blood pressure 126 mm[Hg] Chana Lue [facility] 03-10-2023 04:00-0500 Diastolic blood pressure 61 mm[Hg] Chana Lue [facility] 03-10-2023 04:00-0500 Heart rate 82 /min Chana Lue [facility] 03-10-2023 04:00-0500 Mean blood pressure 76 mm[Hg] Chana Lue [facility] 03-10-2023 04:00-0500 Systolic blood pressure 105 mm[Hg] Chana Lue [facility] 03-09-2023 19:43-0500 SaO2% (BldA) [Mass fraction] 95 % Chana Lue [facility] 03-09-2023 19:40-0500 Body temperature 98.42 [degF] Chana Lue [facility] 03-09-2023 19:39-0500 Mean blood pressure 82 mm[Hg] Chana Lue [facility] 03-09-2023 15:55-0500 Blood Pressure Location Chana Lue [facility] 03-09-2023 15:55-0500 Body temperature 97.52 [degF] Chana Lue [facility] 03-09-2023 15:55-0500 Mean blood pressure 73 mm[Hg] Chana Lue [facility] 03-09-2023 11:03-0500 Body temperature 98.06 [degF] Chana Lue [facility] 03-09-2023 06:45-0500 Mean blood pressure 80 mm[Hg] Chana Lue [facility] 03-09-2023 06:00-0500 Respiratory rate 16 /min Chana Lue [facility] 03-08-2023 17:01-0500 Body temperature 98.42 [degF] Chana Lue [facility] 03-08-2023 17:01-0500 Diastolic Blood Pressure Invasive 62 mm[Hg] Chana Lue [facility] 03-08-2023 17:01-0500 Mean blood pressure 81 mm[Hg] Chana Lue [facility] 03-08-2023 17:01-0500 Respiratory rate 15 /min Chana Lue [facility] 03-08-2023 17:01-0500 Systolic blood pressure 124 mm[Hg] Chana Lue [facility] 03-08-2023 16:50-0500 Diastolic Blood Pressure Invasive 59 mm[Hg] Chana Lue [facility] 03-08-2023 16:50-0500 Mean blood pressure 77 mm[Hg] Chana Lue [facility] 03-08-2023 16:50-0500 Respiratory rate 16 /min Chana Lue [facility] 03-08-2023 16:50-0500 Systolic blood pressure 120 mm[Hg] Chana Lue [facility] 03-08-2023 16:45-0500 Diastolic Blood Pressure Invasive 60 mm[Hg] Chana Lue [facility] 03-08-2023 16:45-0500 Mean blood pressure 83 mm[Hg] Chana Lue [facility] 03-08-2023 16:45-0500 Systolic blood pressure 133 mm[Hg] Chana Lue [facility] 03-08-2023 16:36-0500 Body temperature 98.42 [degF] Chana Lue [facility] 03-08-2023 16:30-0500 FIO2 90 1 Chana Lue [facility] 03-08-2023 16:25-0500 FIO2 90 1 Chana Lue [facility] 03-08-2023 16:20-0500 FIO2 90 1 Chana Lue [facility] 03-08-2023 13:30-0500 SaO2% (BldA) [Mass fraction] 97.2 % Chana Lue [facility] Resp Auto SS 03-08-2023 06:19-0500 Heart rate 96 /min Chana Lue [facility] 02-15-2023 14:27-0500 Blood Pressure Location Chana Lue [facility] 02-15-2023 14:27-0500 Diastolic blood pressure 80 mm[Hg] Chana Lue [facility] 02-15-2023 14:27-0500 Heart rate 85 /min Chana Lue [facility] 02-15-2023 14:27-0500 Mean blood pressure 100 mm[Hg] Chana Lue [facility] 02-15-2023 14:27-0500 Systolic blood pressure 138 mm[Hg] Chana Lue [facility] 02-15-2023 14:27-0500 Heart rate 62 /min Chana Lue [facility] 02-15-2023 14:27-0500 SaO2% (BldA) [Mass fraction] 100 % Chana Lue [facility] 02-15-2023 14:27-0500 Blood Pressure Location Chana Lue [facility] 02-15-2023 14:27-0500 Diastolic blood pressure 91 mm[Hg] Chana Lue [facility] 02-15-2023 14:27-0500 Mean blood pressure 112 mm[Hg] Chana Lue [facility] 02-15-2023 14:27-0500 Systolic blood pressure 153 mm[Hg] Chana Lue [facility] 02-15-2023 14:27-0500 Respiratory rate 18 /min Chana Perez [facility] 02-15-2023 14:26-0500 Body temperature 98.24 [degF] Chana Orozcoe [facility] 12-15-2022 14:52-0400 Blood Pressure Location Lonnie ARDON [facility] 12-15-2022 14:52-0400 Diastolic blood pressure 79 mm[Hg] Lonnie ARDON [facility] 12-15-2022 14:52-0400 Heart rate 93 /min Lonnie ARDON [facility] 12-15-2022 14:52-0400 Systolic blood pressure 136 mm[Hg] Lonnie ARDON [facility] 12-07-2022 14:05-0400 Body height 182.88 cm DO Lorraine Outlook Work Phone: [facility] 12-07-2022 14:05-0400 Body weight 130.18 kg DO Lorraine Outlook Work Phone: [facility] 12-07-2022 14:05-0400 Diastolic blood pressure 87 mm[Hg] DO Lorraine Outlook Work Phone: [facility] 12-07-2022 14:05-0400 Heart rate 88 /min DO Lorraine Outlook Work Phone: [facility] 12-07-2022 14:05-0400 Respiratory rate 18 /min DO Lorraine Outlook Work Phone: [facility] 12-07-2022 14:05-0400 SaO2% (BldA) [Mass fraction] 97 % DO Lorraine Outlook Work Phone: [facility] 12-07-2022 14:05-0400 Systolic blood pressure 128 mm[Hg] DO Lorraine Outlook Work Phone: [facility] 11-13-2022 07:10-0400 Blood Pressure Location Lonnie COOK [facility] 11-13-2022 07:10-0400 Diastolic blood pressure 80 mm[Hg] Lonnie COOK [facility] 11-13-2022 07:10-0400 Heart rate 85 /min Lonnie COOK [facility] 11-13-2022 07:10-0400 Respiratory rate 16 /min Lonnie COOK [facility] 11-13-2022 07:10-0400 Systolic blood pressure 145 mm[Hg] Lonnie COOK [facility] 10-16-2022 15:52-0400 Body height 182.88 cm DO Lorraine Outlook Work Phone: [facility] 10-16-2022 15:52-0400 Body mass index (BMI) [Ratio] 37.3 kg/m2 DO Lorraine Outlook Work Phone: [facility] 10-16-2022 15:52-0400 Body weight 124.84 kg DO Lorraine Outlook Work Phone: [facility] 10-16-2022 15:29-0400 Diastolic blood pressure 61 mm[Hg] DO Lorraine Outlook Work Phone: [facility] 10-16-2022 15:29-0400 Heart rate 75 /min DO Lorraine Outlook Work Phone: [facility] 10-16-2022 15:29-0400 Respiratory rate 16 /min DO Lorraine Outlook Work Phone: [facility] 10-16-2022 15:29-0400 SaO2% (BldA) [Mass fraction] 95 % DO Lorraine Outlook Work Phone: [facility] 10-16-2022 15:29-0400 Systolic blood pressure 92 mm[Hg] DO Lorraine Outlook Work Phone: [facility] 10-16-2022 12:41-0400 Body temperature 98 [degF] DO Lorraine Outlook Work Phone: [facility] 08-18-2022 07:48-0400 Blood Pressure Location Lonnie ARDON [facility] 08-18-2022 07:48-0400 Diastolic blood pressure 81 mm[Hg] Lonnie ARDON [facility] 08-18-2022 07:48-0400 Heart rate 71 /min Lonnie ARDON [facility] 08-18-2022 07:48-0400 Systolic blood pressure 136 mm[Hg] Lonnie ARDON [facility] 07-30-2021 00:00-0400 Diastolic blood pressure 90 mm[Hg] Kaylinn Dokken [facility] 07-30-2021 00:00-0400 Heart rate 85 /min Kaylinn Dokken [facility] 07-30-2021 00:00-0400 Systolic blood pressure 168 mm[Hg] Kaylinn Dokken [facility] 07-29-2021 23:04-0400 Body temperature 98.24 [degF] Kaylinn Dokken [facility] 07-29-2021 23:04-0400 Diastolic blood pressure 99 mm[Hg] Kaylinn Dokken [facility] 07-29-2021 23:04-0400 Heart rate 88 /min Maeve Ang [facility] 07-29-2021 23:04-0400 Respiratory rate 16 /min Maeve Ang [facility] 07-29-2021 23:04-0400 SaO2% (BldA) [Mass fraction] 98 % Teshawimadhu Ang [facility] 07-29-2021 23:04-0400 Systolic blood pressure 181 mm[Hg] Maeve Ang [facility] Encounters Encounter Date Encounter Type Care Provider Facility Start: 08-02-2023 ambulatory Lonnie ARDON Facility :[facility] Start: 06-01-2023 End: 06-01-2023 ambulatory Vick Weiner Facility:[facility] Start: 06-01-2023 End: 06-01-2023 ambulatory DO Lorraine L Outlook Work Phone: [facility] Work Phone: Start: 06-01-2023 End: 06-01-2023 Patient encounter procedure DO Lorraine Outlook Work Phone: [facility] [place] Work Phone: Start: 04-28-2023 End: 04-29-2023 ambulatory Chana Perez Facility: [place] Start: 04-28-2023 End: 04-28-2023 Patient encounter procedure Chana Perez [facility] [place] Start: 04-19-2023 End: 04-20-2023 ambulatory Chana Perez Facility:[facility] Start: 04-19-2023 End: 04-19-2023 Patient encounter procedure Chana M. Lue [facility] Start: 03-29-2023 End: 03-30-2023 ambulatory Chana M. Lue Facility:[facility] Start: 03-29-2023 End: 03-29-2023 Patient encounter procedure Chana M. Lue [facility] Start: 03-29-2023 End: 03-30-2023 ambulatory Chana M. Lue Facility:[facility] Start: 03-22-2023 End: 03-23-2023 ambulatory Chana M. Lue Facility:[facility] Start: 03-22-2023 End: 03-22-2023 Patient encounter procedure Chana M. Lue [facility] Start: 03-22-2023 End: 03-23-2023 ambulatory Chana M. Lue Facility:[facility] Start: 03-22-2023 End: 03-22-2023 Patient encounter procedure Chana M. Lue [facility] Start: 03-20-2023 End: 03-20-2023 Emergency department patient visit Albinojesse Sandovalsaji Facility:[facility] Start: 03-20-2023 End: 03-20-2023 Emergency department patient visit Christina Cabrera [facility] Start: 03-18-2023 End: 03-19-2023 ambulatory LORRAINE REYNOLDS Not Available Start: 03-18-2023 End: 03-18-2023 Patient encounter procedure Chana M. Lue [facility] [place] Start: 03-15-2023 End: 03-16-2023 ambulatory Chana M. Lue Facility:[facility] Start: 03-15-2023 End: 03-15-2023 Patient encounter procedure Chana M. Lue [facility] Start: 03-15-2023 End: 03-16-2023 ambulatory Chana M. Lue Facility:[facility] Start: 03-15-2023 End: 03-15-2023 Patient encounter procedure Chana M. Lue [facility] Start: 03-08-2023 End: 03-10-2023 Evaluation and management of inpatient Chana M. Lue Facility:[facility] Start: 03-08-2023 End: 03-10-2023 Evaluation and management of inpatient Chana M. Lue [facility] Start: 02-15-2023 End: 02-16-2023 ambulatory Hcana M. Lue Facility:[facility] Start: 02-15-2023 End: 02-15-2023 Patient encounter procedure Chana M. Lue [facility] Start: 01-18-2023 End: 01-19-2023 ambulatory Chana M. Lue Facility: [place] Start: 12-15-2022 End: 12-16-2022 ambulatory Lonnie ARDON Facility:[facility] Start: 12-15-2022 End: 12-15-2022 Patient encounter procedure Lonnie ARDON [facility] [place] Start: 12-07-2022 ambulatory Kathy Ayala lity:[facility] Start: 12-07-2022 End: 12-07-2022 ambulatory DO Lorraine Reynolds Work Phone: [facility] Work Phone: Start: 12-07-2022 End: 12-07-2022 Registered Recurring DO Lorraine Outlook Work Phone: [facility] Work Phone: Start: 11-13-2022 End: 11-14-2022 ambulatory Lonnie ARDON Facility: [place] Start: 11-13-2022 End: 11-13-2022 Patient encounter procedure Lonnie ARDON [facility] [place] Start: 10-16-2022 End: 10-17-2022 ambulatory Lonnie ARDON Facility: [place] Start: 10-16-2022 End: 10-16-2022 Admission to same day surgery center DO Lorraine Outlook Work Phone: [facility] [place] Start: 10-16-2022 End: 10-16-2022 Off-Site Lonnie ARDON [facility] [place] Start: 10-06-2022 End: 10-06-2022 ambulatory Lonnie Ardon Facility:[facility] Start: 10-06-2022 End: 10-06-2022 ambulatory DO Lorraine L Outlook Work Phone: [facility] Work Phone: Start: 10-06-2022 End: 10-06-2022 Patient encounter procedure DO Lorraine Outlook Work Phone: [facility] Work Phone: Start: 10-06-2022 End: 10-07-2022 ambulatory Lonnie ARDON Facility: [place] Start: 09-28-2022 End: 09-28-2022 ambulatory Lonnie Ardon Facility:[facility] Start: 09-28-2022 End: 09-28-2022 ambulatory DO Lorraine L Outlook Work Phone: [facility] Work Phone: Start: 09-28-2022 End: 09-28-2022 Patient encounter procedure DO Lorraine Outlook Work Phone: [facility] [place] Work Phone: Start: 08-18-2022 End: 08-19-2022 ambulatory Lonnie ARDON Facility:[facility] [place] Start: 08-18-2022 End: 08-18-2022 Patient encounter procedure Lonnie ARDON [facility] [place] Start: 05-22-2022 ambulatory Chana Perez Facility:[facility] [place] Start: 05-06-2022 End: 05-06-2022 ambulatory MD Wood Sood Work Phone: [facility] Work Phone: Start: 05-06-2022 End: 05-06-2022 Departed Referred MD Wood Sood Work Phone: [facility] [place] Work Phone: Start: 07-29-2021 End: 07-30-2021 Emergency department patient visit Maeve Ang [facility] Procedures Date Procedure Procedure Detail Performing Clinician Start: 03-08-2023 Prostatectomy using robotic assistance Chana Preez Start: 10-16-2022 OR (TRUS) Prostate B iopsy w/Ultrasound (Not Applicable) DO Lorraine Outlook Work Phone: Start: 10-06-2022 Plain chest X-ray DO Ti mothy Outlook Work Phone: Start: 09-28-2022 MR prostate wo/w con DO Lorraine Outlook Work Phone: Start: 09-28-2022 MRI of pelvis with contrast DO Lorraine Outlook Work Phone: Start: 05-05-2021 Arthroplasty of knee Griffin Ang Cholecystectomy Maeve moses Colonoscopy Lonnie ARDON Excision of lesion o f sweat gland Chana Perez Plan of Treatment Date Care Activity Detail Author Start: 06-01-2023 MR Lumbar spine WO a nd W contrast IV [facility] Start: 06-01-2023 MRI of lumbar spine with contrast MR lumbar spine wo/w con [facility] Start: 12-07-2022 [facility] Start: 10-16-2022 [facility] Start: 10-16-2022 [facility] Patient referral [facility] Work Phone: [facility] Immunizations Immunization Date Immunization Notes Care Provider Fa cility 07-30-2021 tetanus toxoid, redu ronna diphtheria toxoid, and acellular pertussis vaccine, adsorbed; Translations: [Boostrix (Tdap)] Maeve Ang [facility] 12-09-2020 SARS-CoV-2 (COVID-19 ) mRNA BNT-162b2 vax Lonnie ARDON [facility] Comment on above: Result Comment: 2022: [id number] 11-17-2020 SARS-CoV-2 (COVID-19 ) mRNA BNT-162b2 vax Lonnie ARDON [facility] Comment on above: Result Comment: 2022: [id number] Payers Date Payer Category Payer Self-pay [id number] 2021 Unknown [id number] 1960 Unknown [id number] [id number] 259 1960 Unknown [id number] 2.16.840.1.710063.3.579.2.7 27 1960 Unknown [id number] 2.16.840.1.842390.3.579.2.7 27 1960 Unknown [id number] 2.16.840.1.004247.3.579.2.7 27 1960 Unknown [id number] 2.16.840.1.173681.3.579.2.7 27 1960 Unknown [id number] 2.16.840.1.010631.3.579.2.7 27 1960 Unknown [id number] 2.16.840.1.379618.3.579.2.7 27 1960 Unknown [id number] 2.16.840.1.256982.3.579.2.7 27 1960 Unknown [id number] 2.16.840.1.238200.3.579.2.7 27 1960 Unknown [id number] 2.16.840.1.912153.3.579.2.7 27 1960 Unknown [id number] 2.16.840.1.516246.3.579.2.7 27 1960 Unknown [id number] 2.16.840.1.014967.3.579.2.7 27 1960 Unknown [id number] 2.16.840.1.036940.3.579.2.7 27 1960 Unknown [id number] 2.16.840.1.466896.3.579.2.7 27 1960 Unknown [id number] 2.16.840.1.448877.3.579.2.7 27 1960 Unknown [id number] 2.16.840.1.315568.3.579.2.7 27 1960 Unknown [id number] 2.16.840.1.830098.3.579.2.7 27 1960 Unknown [id number] 2.16.840.1.541941.3.579.2.7 27 1960 Unknown [id number] 2.16.840.1.665906.3.579.2.7 27 1960 Unknown [id number] 2.16.840.1.073844.3.579.2.7 27 1960 Unknown [id number] 2.16.840.1.397892.3.579.2.7 27 1960 Unknown [id number] 2.16.840.1.253438.3.579.2.7 27 Private Health Insurance [facility] [id number] Unknown [id number] Unknown Regular Auto/Liability [id number] Unknown [id number] 2.16.840.1.946508.3.579.2.5 31 Unknown [id number] 2.16.840.1.582270.3.579.2.5 31 Unknown [id number] 2.16840.1.615774.3.579.2.5 31 Unknown [id number] 2.16840.1.279770.3.579.2.5 31 Unknown [id number] 2.16840.1.973337.3.579.2.5 31 Social History Date Type Detail Facility Tobacco [facility] Comment on above: Denies. cigars every once in a while Sex Assigned At Male [facility] Start: 01-24-2021 End: 01-24-2021 Tobacco smoking status NHIS Ex-smoker (finding) [facility] Start: 1960 Sex Assigned At Male [facility] Start: 08-18-2022 End: 12-15-2022 Tobacco smoking status Smokes tobacco daily (finding) [facility] Tobacco smoking status Never [facility] Start: 10-06-2022 Tobacco smoking stat us NHIS Current some day smoker [facility] Start: 12-07-2022 End: 12-07-2022 Tobacco smoking status NHIS Current Light tobacco smoker [facility] Tobacco smoking status No Smokin g Status Entered [facility] Medical Equipment Procedure Code Equipment Code Equipment Origin al Text Equipment Identifier Dates [id number] [facility] Start: 08-14-2020 Goals Date Patient Goal Desired Activity /State Functional Status Date Assessment Result Facility 04-28-2023 Functional Status N/A [facility] 03-29-2023 Functional Status N/A [facility] 03-22-2023 Functional Status N/A [facility] 03-20-2023 Functional Status N/A [facility] 03-15-2023 Functional Status N/A [facility] 02-15-2023 Functional Status No [facility] 12-15-2022 Functional Status N/A [facility] 11-13-2022 Functional Status N/A [facility] 08-18-2022 Functional Status N/A [facility] Clinical Notes 07-30-2021 to 04-28-2023 Note Date & Type Note Facility 04-28-2023 Hospital Discharge instructions Patient Education 04/28/2023 10:17:01 Kegel Exercises Kegel Exercises Kegel exercises can help strengthen your pelvic floor muscles. The pelvic floor is a group of muscles that support your rectum, small intestine, and bladder. In females, pelvic floor muscles also help support the uterus. These muscles help you control the flow of urine and stool (feces). Kegel exercises are painless and simple. They do not require any equipment. Your provider may suggest Kegel exercises to: Improve bladder and bowel control. Improve sexual response. Improve weak pelvic floor muscles after surgery to remove the uterus (hysterectomy) or after , in females. Improve weak pelvic floor muscles after prostate gland removal or surgery, in males. Kegel exercises involve squeezing your pelvic floor muscles. These are the same muscles you squeeze when you try to stop the flow of urine or keep from passing gas. The exercises can be done while sitting, standing, or lying down, but it is best to vary your position. Ask your health care provider which exercises are safe for you. Do exercises exactly as told by your health care provider and adjust them as directed. Do not begin these exercises until told by your health care provider. Exercises How to do Kegel exercises: 1.Squeeze your pelvic floor muscles tight. You should feel a tight lift in your rectal area. If you are a female, you should also feel a tightness in your vaginal area. Keep your stomach, buttocks, and legs relaxed. 2.Hold the muscles tight for up to 10 seconds. 3.Breathe normally. 4.Relax your muscles for up to 10 seconds. 5.Repeat as told by your health care provider. Repeat this exercise daily as told by your health care provider. Continue to do this exercise for at least 4 6 weeks, or for as long as told by your health care provider. You may be referred to a physical therapist who can help you learn more about how to do Kegel exercises. Depending on your condition, your health care provider may recommend: Varying how long you squeeze your muscles. Doing several sets of exercises every day. Doing exercises for several weeks. Making Kegel exercises a part of your regular exercise routine. This information is not intended to replace advice given to you by your health care provider. Make sure you discuss any questions you have with your health care provider. Document Revised: 08/07/2021 Document Reviewed: 08/07/2021 [employer] Patient Education 2022 [employer] 04/28/2023 10:03:11 Prostate Cancer Screening Prostate Cancer Screening Prostate cancer screening is testing that is done to check for the presence of prostate cancer in men. The prostate gland is a walnut-sized gland that is located below the bladder and in front of the rectum in males. The function of the prostate is to add fluid to semen during ejaculation. Prostate cancer is one of the most common types of cancer in men. Who should have prostate cancer screening? Screening recommendations vary based on age and other risk factors, as well as between the professional organizations who make the recommendations. In general, screening is recommended if: You are age 50 to 70 and have an average risk for prostate cancer. You should talk with your health care provider about your need for screening and how often screening should be done. Because most prostate cancers are slow growing and will not cause , screening in this age group is generally reserved for men who have a 10- to 15-year life expectancy. You are younger than age 50, and you have these risk factors: ?Having a father, brother, or uncle who has been diagnosed with prostate cancer. The risk is higher if your family member's cancer occurred at an early age or if you have multiple family members with prostate cancer at an early age. ?Being a male who is Black or is of [place] or sub-Saharan descent. In general, screening is not recommended if: You are younger than age 40. You are between the ages of 40 and 49 and you have no risk factors. You are 70 years of age or older. At this age, the risks that screening can cause are greater than the benefits that it may provide. If you are at high risk for prostate cancer, your health care provider may recommend that you have screenings more often or that you start screening at a younger age. How is screening for prostate cancer done? The recommended prostate cancer screening test is a blood test called the prostate-specific antigen (PSA) test. PSA is a protein that is made in the prostate. As you age, your prostate naturally produces more PSA. Abnormally high PSA levels may be caused by: Prostate cancer. An enlarged prostate that is not caused by cancer (benign prostatic hyperplasia, or BPH). This condition is very common in older men. A prostate gland infection (prostatitis) or urinary tract infection. Certain medicines such as male hormones (like testosterone) or other medicines that raise testosterone levels. A rectal exam may be done as part of prostate cancer screening to help provide information about the size of your prostate gland. When a rectal exam is performed, it should be done after the PSA level is drawn to avoid any effect on the results. Depending on the PSA results, you may need more tests, such as: A physical exam to check the size of your prostate gland, if not done as part of screening. Blood and imaging tests. A procedure to remove tissue samples from your prostate gland for testing (biopsy). This is the only way to know for certain if you have prostate cancer. What are the benefits of prostate cancer screening? Screening can help to identify cancer at an early stage, before symptoms start and when the cancer can be treated more easily. There is a small chance that screening may lower your risk of dying from prostate cancer. The chance is small because prostate cancer is a slow-growing cancer, and most men with prostate cancer from a different cause. What are the risks of prostate cancer screening? The main risk of prostate cancer screening is diagnosing and treating prostate cancer that would never have caused any symptoms or problems. This is called overdiagnosisand overtreatment. PSA screening cannot tell you if your PSA is high due to cancer or a different cause. A prostate biopsy is the only procedure to diagnose prostate cancer. Even the results of a biopsy may not tell you if your cancer needs to be treated. Slow-growing prostate cancer may not need any treatment other than monitoring, so diagnosing and treating it may cause unnecessary stress or other side effects. Questions to ask your health care provider When should I start prostate cancer screening? What is my risk for prostate cancer? How often do I need screening? What type of screening tests do I need? How do I get my test results? What do my results mean? Do I need treatment? Where to find more information The [place] [employer]: www.cancer.org [place] [employer]: www.auanet.org Contact a health care provider if: You have difficulty urinating. You have pain when you urinate or ejaculate. You have blood in your urine or semen. You have pain in your back or in the area of your prostate. Summary Prostate cancer is a common type of cancer in men. The prostate gland is located below the bladder and in front of the rectum. This gland adds fluid to semen during ejaculation. Prostate cancer screening may identify cancer at an early stage, when the cancer can be treated more easily and is less likely to have spread to other areas of the body. The prostate-specific antigen (PSA) test is the recommended screening test for prostate cancer, but it has associated risks. Discuss the risks and benefits of prostate cancer screening with your health care provider. If you are age 70 or older, the risks that screening can cause are greater than the benefits that it may provide. This information is not intended to replace advice given to you by your health care provider. Make sure you discuss any questions you have with your health care provider. Document Revised: 09/22/2021 Document Reviewed: 09/22/2021 [employer] Patient Education 2022 [employer] Follow Up Care 04/26/2023 08:57:31 With:PILLO JOHNSON, Lonnie Nuñez, URL Address: [address] [place], [place] [id number]- When: Unknown Comments:3 mos w/ PSAf/u w/ KML in 6 mos [facility] 03-29-2023 Hospital Discharge instructions Patient Education 03/29/2023 15:12:23 Prostate Cancer Prostate Cancer The prostate is a small gland that produces fluid that makes up semen (seminal fluid). It is located below the bladder in men, in front of the rectum. Prostate cancer is the abnormal growth of cells in the prostate gland. What are the causes? The exact cause of this condition is not known. What increases the risk? You are more likely to develop this condition if: You are 65 years of age or older. You have a family history of prostate cancer. You have a family history of breast and ovarian cancer. You have genes that are passed from parent to child (inherited), such as BRCA1 and BRCA2. You have Christian syndrome. men and men of descent are diagnosed with prostate cancer at higher rates than other men. The reasons for this are not well understood and are likely due to a combination of genetic and environmental factors. What are the signs or symptoms? Symptoms of this condition include: Problems with urination. This may include: ?A weak or interrupted flow of urine. ?Trouble starting or stopping urination. ?Trouble emptying the bladder all the way. ?The need to urinate more often, especially at night. Blood in urine or semen. Persistent pain or discomfort in the lower back, lower abdomen, or hips. Trouble getting an erection. Weakness or numbness in the legs or feet. How is this diagnosed? This condition can be diagnosed with: A digital rectal exam. For this exam, a health care provider inserts a gloved finger into the rectum to feel the prostate gland. A blood test called a prostate-specific antigen (PSA) test. A procedure in which a sample of tissue is taken from the prostate and checked under a microscope (prostate biopsy). An imaging test called transrectal ultrasonography. Once the condition is diagnosed, tests will be done to determine how far the cancer has spread. This is called staging the cancer. Staging may involve imaging tests, such as a bone scan, CT scan, PET scan, or MRI. Stages of prostate cancer The stages of prostate cancer are as follows: Stage 1 (I). At this stage, the cancer is found in the prostate only. The cancer is not visible on imaging tests, and it is usually found by accident, such as during prostate surgery. Stage 2 (II). At this stage, the cancer is more advanced than it is in stage 1, but the cancer has not spread outside the prostate. Stage 3 (III). At this stage, the cancer has spread beyond the outer layer of the prostate to nearby tissues. The cancer may be found in the seminal vesicles, which are near the bladder and the prostate. Stage 4 (IV). At this stage, the cancer has spread to other parts of the body, such as the lymph nodes, bones, bladder, rectum, liver, or lungs. Prostate cancer grading Prostate cancer is also graded according to how the cancer cells look under a microscope. This is called the Virden score and the total score can range from 6 10, indicating how likely it is that the cancer will spread (metastasize) to other parts of the body. The higher the score, the greater the likelihood that the cancer will spread. Virden 6 or lower: This indicates that the cancer cells look similar to normal prostate cells (well differentiated). Virden 7: This indicates that the cancer cells look somewhat similar to normal prostate cells (moderately differentiated). Virden 8, 9, or 10: This indicates that the cancer cells look very different than normal prostate cells (poorly differentiated). How is this treated? Treatment for this condition depends on several factors, including the stage of the cancer, your age, personal preferences, and your overall health. Talk with your health care provider about treatment options that are recommended for you. Common treatments include: Observation for early stage prostate cancer (active surveillance). This involves having exams, blood tests, and in some cases, more biopsies. For some men, this is the only treatment needed. Surgery. Types of surgeries include: ?Open surgery (radical prostatectomy). In this surgery, a larger incision is made to remove the prostate. ?A laparoscopic radical prostatectomy. This is a surgery to remove the prostate and lymph nodes through several small incisions. It is often referred to as a minimally invasive surgery. ?A robotic radical prostatectomy. This is laparoscopic surgery to remove the prostate and lymph nodes with the help of robotic arms that are controlled by the surgeon. ?Cryoablation. This is surgery to freeze and destroy cancer cells. Radiation treatment. Types of radiation treatment include: ?External beam radiation. This type aims beams of radiation from outside the body at the prostate to destroy cancerous cells. ?Brachytherapy. This type uses radioactive needles, seeds, wires, or tubes that are implanted into the prostate gland. Like external beam radiation, brachytherapy destroys cancerous cells. An advantage is that this type of radiation limits the damage to surrounding tissue and has fewer side effects. Chemotherapy. This treatment kills cancer cells or stops them from multiplying. It kills both cancer cells and normal cells. Targeted therapy. This treatment uses medicines to kill cancer cells without damaging normal cells. Hormone treatment. This treatment involves taking medicines that act on testosterone, one of the male hormones, by: ?Stopping your body from producing testosterone. ?Blocking testosterone from reaching cancer cells. Follow these instructions at home: Lifestyle Do not use any products that contain nicotine or tobacco. These products include cigarettes, chewing tobacco, and vaping devices, such as e-cigarettes. If you need help quitting, ask your health care provider. Eat a healthy diet. To do this: ?Eat foods that are high in fiber. These include beans, whole grains, and fresh fruits and vegetables. ?Limit foods that are high in fat and sugar. These include fried or sweet foods. Treatment for prostate cancer may affect sexual function. If you have a partner, continue to have intimate moments. This may include touching, holding, hugging, and caressing your partner. Get plenty of sleep. Consider joining a support group for men who have prostate cancer. Meeting with a support group may help you learn to manage the stress of having cancer. General instructions Take zxql-okh-shgnhfm and prescription medicines only as told by your health care provider. If you have to go to the hospital, notify your cancer specialist (oncologist). Keep all follow-up visits. This is important. Where to find more information [place] [employer]: www.cancer.org [place] [employer] On[employer]: www.cancer.net [employer]: www.cancer.gov Contact a health care provider if: You have new or increasing trouble urinating. You have new or increasing blood in your urine. You have new or increasing pain in your hips, back, or chest. Get help right away if: You have weakness or numbness in your legs. You cannot control urination or your bowel movements (incontinence). You have chills or a fever. Summary The prostate is a small gland that is involved in the production of semen. It is located below a man's bladder, in front of the rectum. Prostate cancer is the abnormal growth of cells in the prostate gland. Treatment for this condition depends on the stage of the cancer, your age, personal preferences, and your overall health. Talk with your health care provider about treatment options that are recommended for you. Consider joining a support group for men who have prostate cancer. Meeting with a support group may help you learn to manage the stress of having cancer. This information is not intended to replace advice given to you by your health care provider. Make sure you discuss any questions you have with your health care provider. Document Revised: 06/25/2021 Document Reviewed: 06/25/2021 [employer] Patient Education 2022 [employer]. Follow Up Care 03/22/2023 14:00:17 With:Chris JOHNSON, KRISTIN Gomez, URO Address: When: Unknown [facility] 03-22-2023 Hospital Discharge instructions Patient Education 03/22/2023 13:47:32 Prostate Cancer Prostate Cancer The prostate is a small gland that produces fluid that makes up semen (seminal fluid). It is located below the bladder in men, in front of the rectum. Prostate cancer is the abnormal growth of cells in the prostate gland. What are the causes? The exact cause of this condition is not known. What increases the risk? You are more likely to develop this condition if: You are 65 years of age or older. You have a family history of prostate cancer. You have a family history of breast and ovarian cancer. You have genes that are passed from parent to child (inherited), such as BRCA1 and BRCA2. You have Christian syndrome. men and men of descent are diagnosed with prostate cancer at higher rates than other men. The reasons for this are not well understood and are likely due to a combination of genetic and environmental factors. What are the signs or symptoms? Symptoms of this condition include: Problems with urination. This may include: ?A weak or interrupted flow of urine. ?Trouble starting or stopping urination. ?Trouble emptying the bladder all the way. ?The need to urinate more often, especially at night. Blood in urine or semen. Persistent pain or discomfort in the lower back, lower abdomen, or hips. Trouble getting an erection. Weakness or numbness in the legs or feet. How is this diagnosed? This condition can be diagnosed with: A digital rectal exam. For this exam, a health care provider inserts a gloved finger into the rectum to feel the prostate gland. A blood test called a prostate-specific antigen (PSA) test. A procedure in which a sample of tissue is taken from the prostate and checked under a microscope (prostate biopsy). An imaging test called transrectal ultrasonography. Once the condition is diagnosed, tests will be done to determine how far the cancer has spread. This is called staging the cancer. Staging may involve imaging tests, such as a bone scan, CT scan, PET scan, or MRI. Stages of prostate cancer The stages of prostate cancer are as follows: Stage 1 (I). At this stage, the cancer is found in the prostate only. The cancer is not visible on imaging tests, and it is usually found by accident, such as during prostate surgery. Stage 2 (II). At this stage, the cancer is more advanced than it is in stage 1, but the cancer has not spread outside the prostate. Stage 3 (III). At this stage, the cancer has spread beyond the outer layer of the prostate to nearby tissues. The cancer may be found in the seminal vesicles, which are near the bladder and the prostate. Stage 4 (IV). At this stage, the cancer has spread to other parts of the body, such as the lymph nodes, bones, bladder, rectum, liver, or lungs. Prostate cancer grading Prostate cancer is also graded according to how the cancer cells look under a microscope. This is called the Aidee score and the total score can range from 6 10, indicating how likely it is that the cancer will spread (metastasize) to other parts of the body. The higher the score, the greater the likelihood that the cancer will spread. Aidee 6 or lower: This indicates that the cancer cells look similar to normal prostate cells (well differentiated). Aidee 7: This indicates that the cancer cells look somewhat similar to normal prostate cells (moderately differentiated). Virden 8, 9, or 10: This indicates that the cancer cells look very different than normal prostate cells (poorly differentiated). How is this treated? Treatment for this condition depends on several factors, including the stage of the cancer, your age, personal preferences, and your overall health. Talk with your health care provider about treatment options that are recommended for you. Common treatments include: Observation for early stage prostate cancer (active surveillance). This involves having exams, blood tests, and in some cases, more biopsies. For some men, this is the only treatment needed. Surgery. Types of surgeries include: ?Open surgery (radical prostatectomy). In this surgery, a larger incision is made to remove the prostate. ?A laparoscopic radical prostatectomy. This is a surgery to remove the prostate and lymph nodes through several small incisions. It is often referred to as a minimally invasive surgery. ?A robotic radical prostatectomy. This is laparoscopic surgery to remove the prostate and lymph nodes with the help of robotic arms that are controlled by the surgeon. ?Cryoablation. This is surgery to freeze and destroy cancer cells. Radiation treatment. Types of radiation treatment include: ?External beam radiation. This type aims beams of radiation from outside the body at the prostate to destroy cancerous cells. ?Brachytherapy. This type uses radioactive needles, seeds, wires, or tubes that are implanted into the prostate gland. Like external beam radiation, brachytherapy destroys cancerous cells. An advantage is that this type of radiation limits the damage to surrounding tissue and has fewer side effects. Chemotherapy. This treatment kills cancer cells or stops them from multiplying. It kills both cancer cells and normal cells. Targeted therapy. This treatment uses medicines to kill cancer cells without damaging normal cells. Hormone treatment. This treatment involves taking medicines that act on testosterone, one of the male hormones, by: ?Stopping your body from producing testosterone. ?Blocking testosterone from reaching cancer cells. Follow these instructions at home: Lifestyle Do not use any products that contain nicotine or tobacco. These products include cigarettes, chewing tobacco, and vaping devices, such as e-cigarettes. If you need help quitting, ask your health care provider. Eat a healthy diet. To do this: ?Eat foods that are high in fiber. These include beans, whole grains, and fresh fruits and vegetables. ?Limit foods that are high in fat and sugar. These include fried or sweet foods. Treatment for prostate cancer may affect sexual function. If you have a partner, continue to have intimate moments. This may include touching, holding, hugging, and caressing your partner. Get plenty of sleep. Consider joining a support group for men who have prostate cancer. Meeting with a support group may help you learn to manage the stress of having cancer. General instructions Take qmbp-umx-lvfmibk and prescription medicines only as told by your health care provider. If you have to go to the hospital, notify your cancer specialist (oncologist). Keep all follow-up visits. This is important. Where to find more information [place] [employer]: www.cancer.org [place] [employer] Clinical Oncology: www.cancer.net [employer]: www.cancer.gov Contact a health care provider if: You have new or increasing trouble urinating. You have new or increasing blood in your urine. You have new or increasing pain in your hips, back, or chest. Get help right away if: You have weakness or numbness in your legs. You cannot control urination or your bowel movements (incontinence). You have chills or a fever. Summary The prostate is a small gland that is involved in the production of semen. It is located below a man's bladder, in front of the rectum. Prostate cancer is the abnormal growth of cells in the prostate gland. Treatment for this condition depends on the stage of the cancer, your age, personal preferences, and your overall health. Talk with your health care provider about treatment options that are recommended for you. Consider joining a support group for men who have prostate cancer. Meeting with a support group may help you learn to manage the stress of having cancer. This information is not intended to replace advice given to you by your health care provider. Make sure you discuss any questions you have with your health care provider. Document Revised: 06/25/2021 Document Reviewed: 06/25/2021 [employer] Patient Education 2022 [employer] Follow Up Care 03/15/2023 13:12:45 With:Chris JOHNSON, KRISTIN Gomez, URO Address: When: Unknown [facility] 03-20-2023 Hospital Discharge instructions Patient Education 03/20/2023 16:24:39 Hematuria, Adult Hematuria, Adult Hematuria is blood in the urine. Blood may be visible in the urine, or it may be identified with a test. This condition can be caused by infections of the bladder, urethra, kidney, or prostate. Other possible causes include: Kidney stones. Cancer of the urinary tract. Too much calcium in the urine. Conditions that are passed from parent to child (inherited conditions). Exercise that requires a lot of energy. Infections can usually be treated with medicine, and a kidney stone usually will pass through your urine. If neither of these is the cause of your hematuria, more tests may be needed to identify the cause of your symptoms. It is very important to tell your health care provider about any blood in your urine, even if it is painless or the blood stops without treatment. Blood in the urine, when it happens and then stops and then happens again, can be a symptom of a very serious condition, including cancer. There is no pain in the initial stages of many urinary cancers. Follow these instructions at home: Medicines Take yxmp-lap-pkyofqz and prescription medicines only as told by your health care provider. If you were prescribed an antibiotic medicine, take it as told by your health care provider. Do not stop taking the antibiotic even if you start to feel better. Eating and drinking Drink enough fluid to keep your urine pale yellow. It is recommended that you drink 3 4 quarts (2.8 3.8 L) a day. If you have been diagnosed with an infection, drinking cranberry juice in addition to large amounts of water is recommended. Avoid caffeine, tea, and carbonated beverages. These tend to irritate the bladder. Avoid alcohol because it may irritate the prostate (in males). General instructions If you have been diagnosed with a kidney stone, follow your health care provider's instructions about straining your urine to catch the stone. Empty your bladder often. Avoid holding urine for long periods of time. If you are female: ?After a bowel movement, wipe from front to back and use each piece of toilet paper only once. ?Empty your bladder before and after sex. Pay attention to any changes in your symptoms. Tell your health care provider about any changes or any new symptoms. It is up to you to get the results of any tests. Ask your health care provider, or the department that is doing the test, when your results will be ready. Keep all follow-up visits. This is important. Contact a health care provider if: You develop back pain. You have a fever or chills. You have nausea or vomiting. Your symptoms do not improve after 3 days. Your symptoms get worse. Get help right away if: You develop severe vomiting and are unable to take medicine without vomiting. You develop severe pain in your back or abdomen even though you are taking medicine. You pass a large amount of blood in your urine. You pass blood clots in your urine. You feel very weak or like you might faint. You faint. Summary Hematuria is blood in the urine. It has many possible causes. It is very important that you tell your health care provider about any blood in your urine, even if it is painless or the blood stops without treatment. Take cvfu-gea-msldoqs and prescription medicines only as told by your health care provider. Drink enough fluid to keep your urine pale yellow. This information is not intended to replace advice given to you by your health care provider. Make sure you discuss any questions you have with your health care provider. Document Revised: 11/27/2020 Document Reviewed: 11/27/2020 [employer] Patient Education 2022 [employer]. Follow Up Care 03/20/2023 13:36:24 With:Chana Perez Address: [address] [address] [phone] Business (1) When:03/22/2023 16:02:13 Comments:Make sure to follow-up with Dr. Og as discussed. Return to the emergency room if the blood in the Crystal catheter recurs and does not clear, the Crystal catheter stops draining, abdominal pain, fever or any new symptoms. With:LORRAINE REYNOLDS Address: [address] [place] [address] [phone] Business (1) When:Within 3 Day(s) [facility] 03-20-2023 Evaluation + Plan note Extrac coleman from: Title:ED Note Author:Christina Cabrera M.D. te:03/20/23 1. Hematuria (R31.9: Hematur ia, unspecified) Orders: Bladder Scan UA With Cult Reflex Future Appointments Appointment Date:03/22/2023 09:00:00 AM Scheduled Provider: Location:FT.XRAY Appointment Type:XR Genital/Urinary Procedures (FT) Appointment Date:03/22/2023 01:00:00 PM Scheduled Provider:Chana Perez MD Location:[facility] Appointment Type:URO Office Visit Future Scheduled Tests Radiology* XR Cystography Minimum 3 Views 03/22/23 [facility]12-04-2023 NotePatient: EVELIA IBARRA Age: 62 years Sex: Male : 1960 Associated Diagnoses: None Author: Chana Perez MD Results Review General results Today's results 03/15/2023 13:20 EST Ambulatory Visit Instructions 03/15/2023 13:07 EST Urology Office/Clinic Note URO- PO Ralp Review of Systems Documentation Review of Systems Documentation (Unauth) Physical Examination Documentation Physical Examination Documentation (Unauth) History of Present Illness Documentation History of Present Illness Documentation (Unauth) Impression and Plan Documentation Impression and Plan Documentation (Unauth) 03/15/2023 12:55 EST Patient Education Patient Education 03/15/2023 12:28 EST Height/Length Measured 182 cm Height/Length Dosing 182.0 cm Weight Dosing 132.0 kg Body Mass Index Measured 39.85 kg/m2 Weight Measured 132 kg Weight in Pounds 290.4 lb Height in Inches 72 in Pain Present No actual or suspected pain Feeling Down, Depressed, Hopeless Not at all Little Interest - Pleasure in Activities Not at all Initial Depression Screen Score 0 SCORE Patient Counseled Physical activity, Elevated BMI Housing Situation Today I choose not to answer this question Gone Without Household Needs Past Year I choose not to answer this question Afraid of Ex/Partner in the Past Year I choose not to answer this question No Transport Med Appt/Med/Work/Necessity I choose not to answer this question Symptomatic After Exposure to Contagion No Symptomatic After Travel High-Risk Area No Droplet, Contact Isolation Verification N/A Airborne,Contact Isolation Verification N/A Preferred Lab [facility] Preferred Rad [facility] Ambulatory Comp Intake FT - Text Ambulatory Comprehensive Intake FT 03/15/2023 9:47 EST XR Cystography Minimum 3 Views XR Cystography Minimum 3 Views 03/15/2023 8:43 EST Consent for Treatment Consent for Treatment Discharge Information Discharge Information Discharge Summary Information: Admitted 03/08/2023, Discharged 03/10/2023, Discharge medications. Admitting physician: Chana Perez MD Admitting diagnosis: Prostate cancer ([id number] C61, Working, Medical). Physical Examination Vital Signs 03/10/2023 11:58 EST Heart Rate Monitored 87 bpm SpO2 96 % 03/10/2023 11:58 EST Respiratory Rate 18 br/min 03/10/2023 11:57 EST Systolic Blood Pressure 128 mmHg Diastolic Blood Pressure 64 mmHg Mean Arterial Pressure, Monitered 86 mmHg Intake and Output Fluid Balance Primitives 03/10/2023 6:45 EST Urine Catheter 550 mL 03/10/2023 4:00 EST Urine Catheter 450 mL General: Alert and oriented, No acute distress. Eye: Pupils are equal, round and reactive to light, Extraocular movements are intact. HENT: Normocephalic, Normal hearing. Respiratory: Respirations are non-labored, Symmetrical chest wall expansion. Cardiovascular: Normal rate, Regular rhythm, No edema. Gastrointestinal: Soft, Non-distended, Appropriately tender. Robotic incisions clean dry intact with skin glue. Left lower quadrant DARIO site with clean gauze.. Genitourinary: 18 Wolof Crytsal catheter to gravity with clear yellow urine. Musculoskeletal No tenderness. No swelling. Integumentary: Warm, Dry, Pax, Intact. Neurologic: Alert, Oriented, No focal deficits. Psychiatric: Cooperative, Appropriate mood & affect. Hospital Course 62-year-old male with history of morbid obesity (BMI of 40), patient of Dr. Ardon with recently diagnosed favorable intermediate risk prostate cancer, cT2a, grade group 2, +5/15 cores including regionof interest in the left peripheral zone at the mid gland, initial PSA 5.8. After discussion of risks and benefits of management options, patient presented on the day of admission for robotic assistedlaparoscopic prostatectomy with bilateral pelvic lymph node dissection. Case was without complications. He recovered on the floor in stable condition. His vitals remained stable, he was tolerating p.o. intake, passing flatus and able to ambulate. Labs within normal limits. DARIO drain had acceptable low output and was removed prior to discharge home. He had poor pain control (notes a history of highpain medication tolerance) and therefore remained an additional night. He was discharged home on postop day 2 in stable condition. Plan to follow-up in 1 week for cystogram and possible Crystal removal. Discharge Plan Discharge Summary Plan Discharge Status: stable. Discharge instructions given: to patient, to caregiver. Discharge disposition: discharge to home (into the care of family member, self care). Prescriptions: called to pharmacy. Diagnosis Prostate cancer ([id number] C61, Working, Medical). Discharge Plan Diagnosis Cancer of prostate ([id number] C61, Working, Medical).[facility] Comment on above:Result Comment: Electronically Signed By: Chana Perez MD\.br\Date and Time Signed: 03/15/23 14:[id number] NotePatient: EVELIA IBARRA Age: 62 years Sex: Male : 1960 Associated Diagnoses: None Author: Chana Perez MD Results Review General results Discharge Information Discharge Summary Information: Admitted 03/08/2023, Discharged 03/10/2023, Discharge medications. Admitting physician: Chana Perez MD. Admitting diagnosis: Prostate cancer ([id number] C61, Working, Medical). Physical Examination Vital Signs 03/10/2023 11:58 EST Heart Rate Monitored 87 bpm SpO2 96 % 03/10/2023 11:58 EST Respiratory Rate 18 br/min 03/10/2023 11:57 EST Systolic Blood Pressure 128 mmHg Diastolic Blood Pressure 64 mmHg Mean Arterial Pressure, Monitered 86 mmHg Intake and Output Fluid Balance Primitives 03/10/2023 6:45 EST Urine Catheter 550 mL 03/10/2023 4:00 EST Urine Catheter 450 mL General: Alert and oriented, No acute distress. Eye: Pupils are equal, round and reactive to light, Extraocular movements are intact. HENT: Normocephalic, Normal hearing. Respiratory: Respirations are non-labored, Symmetrical chest wall expansion. Cardiovascular: Normal rate, Regular rhythm, No edema. Gastrointestinal: Soft, Non-distended, Appropriately tender. Robotic incisions clean dry intact with skin glue. Left lower quadrant DARIO site with clean gauze.. Genitourinary: 18 Wolof Crystal catheter to gravity with clear yellow urine. Musculoskeletal No tenderness. No swelling. Integumentary: Warm, Dry, Pax, Intact. Neurologic: Alert, Oriented, No focal deficits. Psychiatric: Cooperative, Appropriate mood & affect. Hospital Course 62-year-old male with history of morbid obesity (BMI of 40), patient of Dr. Ardon with recently diagnosed favorable intermediate risk prostate cancer, cT2a, grade group 2, +5/15 cores including regionof interest in the left peripheral zone at the mid gland, initial PSA 5.8. After discussion of risks and benefits of management options, patient presented on the day of admission for robotic assistedlaparoscopic prostatectomy with bilateral pelvic lymph node dissection. Case was without complications. He recovered on the floor in stable condition. His vitals remained stable, he was tolerating p.o. intake, passing flatus and able to ambulate. Labs within normal limits. DARIO drain had acceptable low output and was removed prior to discharge home. He had poor pain control (notes a history of highpain medication tolerance) and therefore remained an additional night. He was discharged home on postop day 2 in stable condition. Plan to follow-up in 1 week for cystogram and possible Crystal removal. Discharge Plan Discharge Summary Plan Discharge Status: stable. Discharge instructions given: to patient, to caregiver. Discharge disposition: discharge to home (into the care of family member, self care). Prescriptions: called to pharmacy. Diagnosis Prostate cancer ([id number] C61, Working, Medical).[facility] Comment on above:Result Comment: Electronically Signed By: Chris JOHNSON, Chana Singh\.br\Date and Time Signed: 03/10/23 19:41EST wrong [id number] Hospital Discharge instructions Patient Education 03/15/2023 12:55:15 Indwelling Urinary Catheter Care, Adult Indwelling Urinary Catheter Care, Adult An indwelling urinary catheter is a thin, flexible tube that is placed into the bladder to help drain urine out of the body. The catheter is inserted into the urethra. The urethra is the part of the body that drains urine from the bladder. Urine drains from the catheter into a drainage bag outside of the body. Taking good care of your catheter will keep it working properly and help to prevent problems from developing. What are the risks? Bacteria may get into your bladder and cause a urinary tract infection. Urine flow can become blocked. This can happen if the catheter is not working correctly, or if you have sediment or a blood clot in your bladder or catheter. Tissue near the catheter may become irritated and may bleed. How to wear your catheter and your drainage bag Supplies needed Adhesive tape or a leg strap. Alcohol wipe or soap and water (if you use tape). A clean towel (if you use tape). Overnight drainage bag. Smaller drainage bag (leg bag). Wearing your catheter and bag Use adhesive tape or a leg strap to attach your catheter to your leg. Make sure the catheter is not pulled tight. If a leg strap gets wet, replace it with a dry one. If you use adhesive tape: 1.Use an alcohol wipe or soap and water to wash off any stickiness on your skin where you had tape before. 2.Use a clean towel to pat-dry the area. 3.Apply the new tape. You should have received a large overnight drainage bag and a smaller leg bag that fits underneath clothing. You may wear the overnight bag at any time, but you should not wear the leg bag at night. Make sure the overnight drainage bag is always lower than the level of your bladder, but do not letit touch the floor. Before you go to sleep, hang the bag inside a wastebasket that is covered by a clean plastic bag. Secure the leg bag according to business writer's instructions. This may be above or below the knee, depending on the length of the tubing. Make sure that: ?The leg bag is below the bladder. ?The tubing does not have loops or too much tension. How to care for the skin around the catheter Supplies needed A clean washcloth. Water and mild soap. A clean towel. Caring for your skin and catheter Every day, use a clean washcloth and soapy water to clean the skin around your catheter. 1.Wash your hands with soap and water. 2.Wet a washcloth in warm water and mild soap. 3.Clean the skin around your urethra. ?If you are female: ?Use one hand to gently spread the folds of skin around your vagina (labia). ?With the washcloth in your other hand, wipe the inner side of your labia on each side. Do this in a [id number] direction. ?If you are male: ?Use one hand to pull back any skin that covers the end of your penis (foreskin). ?With the washcloth in your other hand, wipe your penis in small circles. Start wiping at the tip of your penis, then move outward from the catheter. ?Move the foreskin back in place, if needed. 4.With your free hand, hold the catheter close to where it enters your body. Keep holding the catheter during cleaning so it does not get pulled out. 5.Use your other hand to clean the catheter with the washcloth. ?Only wipe downward on the catheter, toward the bag. ?Do not wipe upward toward your body, because that may push bacteria into your urethra and cause infection. 6.Use a clean towel to pat-dry the catheter and the skin around it. Make sure to wipe off all soap. 7.Wash your hands with soap and water. Shower every day. Do not take baths. Do not use cream, ointment, or lotion on the area where the catheter enters your body, unless your health care provider tells you to do that. Do not use powders, sprays, or lotions on your genital area. Check your skin around the catheter every day for signs of infection. Check for: ?Redness, swelling, or pain. ?Fluid or blood. ?Warmth. ?Pus or a bad smell. How to empty the drainage bag Supplies needed Rubbing alcohol. Gauze pad or cotton ball. Adhesive tape or a leg strap. Emptying the bag Empty your drainage bag (your overnight drainage bag or your leg bag) when it is ? full, or at least 2 3 times a day. Clean the drainage bag according to the business writer's instructions or as told byyour health care provider. 1.Wash your hands with soap and water. 2.Detach the drainage bag from your leg. 3.Hold the drainage bag over the toilet or a clean container. Make sure the drainage bag is lower than your hips and bladder. This stops urine from going back into the tubing and into your bladder. 4.Open the pour spout at the bottom of the bag. 5.Empty the urine into the toilet or container. Do not let the pour spout touch any surface. This precaution is important to prevent bacteria from getting in the bag and causing infection. 6.Apply rubbing alcohol to a gauze pad or cotton ball. 7.Use the gauze pad or cotton ball to clean the pour spout. 8.Close the pour spout. 9.Attach the bag to your leg with adhesive tape or a leg strap. 10.Wash your hands with soap and water. How to change the drainage bag Supplies needed: Alcohol wipes. A clean drainage bag. Adhesive tape or a leg strap. Changing the bag Replace your drainage bag with a clean bag if it leaks, starts to smell bad, or looks dirty. 1.Wash your hands with soap and water. 2.Detach the dirty drainage bag from your leg. 3.Pinch the catheter with your fingers so that urine does not spill out. 4.Disconnect the catheter tube from the drainage tube at the connection valve. Do not let the tubestouch any surface. 5.Clean the end of the catheter tube with an alcohol wipe. Use a different alcohol wipe to clean the end of the drainage tube. 6.Connect the catheter tube to the drainage tube of the clean bag. 7.Attach the clean bag to your leg with adhesive tape or a leg strap. Avoid attaching the new bag too tightly. 8.Wash your hands with soap and water. General instructions Never pull on your catheter or try to remove it. Pulling can damage your internal tissues. Always wash your hands before and after you handle your catheter or drainage bag. Use a mild, fragrance-free soap. If soap and water are not available, use hand ict systems test engineer. Always make sure there are no twists, bends, or kinks in the catheter tube. Always make sure there are no leaks in the catheter or drainage bag. Drink enough fluid to keep your urine pale yellow. Do not take baths, swim, or use a hot tub. If you are female, wipe from front to back after having a bowel movement. Contact a health care provider if: Your catheter gets clogged. Your catheter starts to leak. You have signs of infection at the catheter site, such as: ?Redness, swelling, or pain where the catheter enters your body. ?Fluid, blood, pus, or a bad smell coming from the area where the catheter enters your body. ?The area where the catheter enters your body feels warm to the touch. You have signs of a urinary tract infection, such as: ?Fever or chills. ?Urine smells unusually bad. ?Cloudy urine. ?Pain in your abdomen, legs, lower back, or bladder. ?Nausea or vomiting. Get help right away if: You see blood in the catheter. Your urine is pink or red. Your bladder feels full. Your urine is not draining into the bag. Your catheter gets pulled out. Summary An indwelling urinary catheter is a thin, flexible tube that is placed into the bladder to help drain urine out of the body. The catheter is inserted into the part of the body that drains urine from the bladder (urethra). Take good care of your catheter to keep it working properly and help prevent problems from developing. Always wash your hands before and after you handle your catheter or drainage bag. Never pull on your catheter or try to remove it. This information is not intended to replace advice given to you by your health care provider. Make sure you discuss any questions you have with your health care provider. Document Revised: 11/27/2021 Document Reviewed: 11/27/2021 [employer] Patient Education 2022 [employer]. Follow Up Care 03/11/2023 08:25:15 With:Chris JOHNSON, Chana Singh, URL, URO Address: [address] [place] [address]- When:Within 1 Week(s) Comments:w/ repeat cystogram- possible cath removal [facility] 11-28-2023 Evaluation + Plan noteExtracted from: Title:EU - POD1 RALP, BPLND Author:Chana Perez MD Date:03/09/23 Impression and Plan Assessment and Plan: Diagnosis: Prostate cancer ([id number] C61, Discharge, Medical). 62-year-old male postop day 1 from RALP, BPLND Doing well, recovering as expected postop labs are normal limits. Discussed postop expectations. DARIO drain minimal output. -DC DARIO bulb if output remains less than 100 cc today -PO pain meds: Increase to Percocet 1-2 every 6 hours, Tylenol hrqyga-xcp-esace, Toradol IV -bowel regimen -Continue Crystal to gravity -IS -Advance to diabetic diet as tolerated, Hep-Lock IV fluids -SQH TID for DVT prophy, SCDs, OOB to chair, ambulate -abdominal binder -Discharge later today once ambulating safely and pain controlled on p.o. medications. Follow-up in 1 week with cystogram and possible Crystal removal Upon update talking to nurse. Patient has ambulated however is having significant pain, uncontrolled with p.o. Percocet and Toradol. Is passing gas, tolerating regular diet, vitals stable. Given patient's significant BMI, at home, prefers for him to be more comfortable going home and ambulating. Discussed how the majority of recovery is at home. - will add low-dose Valium for abdominal cramping -Will keep 1 more night if his pain continues to be uncontrolled oral medications and he is unstable ambulating. -Needs to cont moving, ambulating, abd binder yet to be applied Extracted from: Title:ANES Post-operative Note - General Author: Adebayo Laurent Jr., DO Date:03/08/23 Plan Transfer/Discharge: Transfer/Discharge Discharge when meets criteria ( From PACU to floor ). Extracted from: Title:EU - RALP, BPLND Author:Chris JOHNSON, Chana Bellamy ate:03/08/23 Impression and Plan Diagnosis Cancer of prostate ([id number] C61, Working, Medical). Diagnosis Cancer of prostate (HOV19-II C61, Working, Medical). Counseled: Patient, Family. Extracted from: Title:GIGI Pre Op - Adult General Author:Denise lyles MD, Nir Ann Date:03/08/23 Plan [place] [employer]esthesi[employer] (ASA) physical status classification: Class III. Anesthetic Preoperative Plan Anesthesia: General. . Anesthetic plan, risks, benefits, and alternatives discussed with the patient and/or family. Risks discussed: nausea, vomiting, headache, sore throat, dental injury, serious complications. Patient verbalized understanding. Communication: face to face with patient 5 minutes. [facility]11-28-2023 NotePT Evaluation completed with an AMPAC score of 22/24. Pt was able to perform bed mobility with Mod I and transfers with Supervision A. Pt also able to ambulate, but is limited in mobility due to increased lower Abdominal pain. Despite pain, pt was still able to perform functional mobility with no LOB. [facility] Discharge instructions Patient Education 03/09/2023 08:47:06 Robot-Assisted Laparoscopic Radical Prostatectomy, Care After Robot-Assisted Laparoscopic Radical Prostatectomy, Care After The following information offers guidance on how to care for yourself after your procedure. Your health care provider may also give you more specific instructions. If you have problems or questions, contact your health care provider. What can I expect after the procedure? After the procedure, it is common to have: Mild pain in your abdomen. Blood and small clots in your urine for up to 3 weeks. Bladder spasms, or a need to urinate more often than usual. These may last for up to 2 weeks. Swelling in your penis and in the sac that contains your testicles (scrotum). After your thin, flexible urinary tube (Crystal catheter)is removed, it is common to have: Burning when you pass urine. This may last for up to 2 weeks after your catheter is removed. Trouble controlling when you urinate (incontinence). You may leak urine sometimes. Your ability to control your urine should improve as you heal. Follow these instructions at home: Medicines Take gkyg-qzw-lmnubuu and prescription medicines only as told by your health care provider. This includes any stool softeners. If you were prescribed an antibiotic, take it as told by your health care provider. Do not stop taking the antibiotic early, even if you start to feel better. Ask your health care provider if the medicine prescribed to you: ?Requires you to avoid driving or using machinery. ?Can cause constipation. You may need to take these actions to prevent or treat constipation: ?Take wtnz-jab-ckgcxml or prescription medicines. ?Eat foods that are high in fiber, such as beans, whole grains, and fresh fruits and vegetables. ?Limit foods that are high in fat and processed sugars, such as fried or sweet foods. Eating and drinking Follow instructions from your health care provider about eating or drinking restrictions. Drink enough fluid to keep your urine pale yellow. Incision care and drain care Follow instructions from your health care provider about how to take care of your incisions and drains, if present. Make sure you: ?Wash your hands with soap and water for at least 20 seconds before and after you change your bandages (dressings) or handle drains and drainage tubes. If soap and water are not available, use hand ict systems test engineer. ?Change your dressings as told by your health care provider. ?Leave stitches (sutures), skin glue, or adhesive strips in place. These skin closures may need to stay in place for 2 weeks or longer. If adhesive strip edges start to loosen and curl up, you may trim the loose edges. Do not remove adhesive strips unless your health care provider tells you to do that. ?If you have a drain in any incision, follow instructions about how to care for your drain. Do not remove the drain tube or any dressing around it unless your health care provider approves. Check your incision site and the skin around your drain every day for signs of infection. Check for: ?More redness, swelling, or pain. ?New fluid or blood. Some dried fluid or blood may be present. ?Warmth. ?Pus or a bad smell. Catheter care Always wash your hands with soap and water for at least 20 seconds before and after touching your penis, catheter, and drainage bag. If soap and water are not available, use hand ict systems test engineer. Empty your collection bag every 3 hours during the day, or as often as told by your health care provider. Make sure to keep the catheter secured to keep from tugging on it or pulling it out. Make sure there are no kinks in the tubing that could block the flow of urine. Keep the urine collection bag belowthe level of your bladder. Clean the tip of your penis with soap and water twice a day, or as often as told by your health care provider. If you were given ointment to apply to the tip of your penis, follow instructions about how to do this. You will need to visit your health care provider to have your catheter removed. It may stay in for up to 3 weeks after your procedure. Managing pain and swelling If directed, put ice on the affected area. To do this: Put ice in a plastic bag. Place a towel between your skin and the bag. Leave the ice on for 20 minutes, 2 3 times a day. Remove the ice if your skin turns bright red. If you cannot feel pain, heat, or cold, you have a greater risk of damage to the area. Activity Do not lift anything that is heavier than 10 lb (4.5 kg), or the limit that you are told, until your health care provider says that it is safe. Avoid intense physical activity for as long as told by your health care provider. Avoid sitting for a long time without moving. Get up to take short walks every 1 2 hours. This improves your blood flow and breathing. Ask for help if you feel weak or unsteady. Return to your normal activities as told by your health care provider. Ask your health care provider what activities are safe for you. You may be able to exercise more as you feel better. Ask your health care provider when it is safe for you to drive. Follow instructions from your health care provider about when it is safe for you to engage in sexual activity. General instructions Do not take baths, swim, or use a hot tub until your health care provider approves. Ask your healthcare provider if you may take showers. You may only be allowed to take sponge baths. Do not strain to have a bowel movement. Do not use any products that contain nicotine or tobacco. These products include cigarettes, chewing tobacco, and vaping devices, such as e-cigarettes. If you need help quitting, ask your health careprovider. If your pelvic lymph nodes were removed for testing, it may take a few weeks to get the results. Ask your health care provider, or the department that is doing the test, when your results will be ready and how you will get them. Keep all follow-up visits. Contact a health care provider if: You have a fever. An incision opens up. You have any of the following around your incision site or drain area: ?More redness, swelling, or pain. ?New fluid or blood. ?Warmth. ?Pus or a bad smell. You have any of these signs of a urinary tract infection: ?Pain or burning when you urinate. ?Needing to urinate often without being able to pass much urine. ?Pain in your back or lower abdomen. You have problems with your catheter or drain, if present. You have bladder spasms more than 3 or 4 times a day. You become constipated. You have pain that gets worse. Get help right away if: Your catheter falls out. You cannot urinate or urine stops coming out through the catheter. You have more bright red blood in your urine 3 weeks or more after your procedure. You have large clots in your urine. You develop: ?Chest pain or shortness of breath. ?Swelling, warmth, or pain in your legs. ?Severe pain or swelling in your abdomen. These symptoms may represent a serious problem that is an emergency. Do not wait to see if the symptoms will go away. Get medical help right away. Call your local emergency services (681 in the [place] Do not drive yourself to the hospital. Summary After your procedure, it is common to have mild pain, blood and small clots in your urine for up to3 weeks, and a need to urinate more often. Follow instructions from your health care provider about how to take care of your incisions, catheter, and drain, if present. If your pelvic lymph nodes were removed for testing, it may take a few weeks to get the results. Ask your health care provider, or the department that is doing the test, when your results will be ready and how you will get them. Keep all follow-up visits. This information is not intended to replace advice given to you by your health care provider. Make sure you discuss any questions you have with your health care provider. Document Revised: 06/25/2021 Document Reviewed: 06/25/2021 [employer] Patient Education 2022 [place]. Follow Up Care 01/25/2023 08:47:43 With:LORRAINE REYNOLDS [facility]: [address] [address]- When:03/15/2023 10:40:00 With:Chana Perez Address: [address] [place] [phone] Business (1) [address] [phone] Business (1) When: Unknown Comments:Office will call to schedule your follow up in 1 week for cystogram, possible crystal removal and pathology review [facility]11-22-2023 Note [id number]#1.00[facility] 02-12-2023 [id number]09-05-2023 Hospital Discharge instructions Patient Education 12/15/2022 15:20:15 Prostate Cancer Prostate Cancer The prostate is a small gland that produces fluid that makes up semen (seminal fluid). It is located below the bladder in men, in front of the rectum. Prostate cancer is the abnormal growth of cells in the prostate gland. What are the causes? The exact cause of this condition is not known. What increases the risk? You are more likely to develop this condition if: You are 65 years of age or older. You have a family history of prostate cancer. You have a family history of breast and ovarian cancer. You have genes that are passed from parent to child (inherited), such as BRCA1 and BRCA2. You have Christian syndrome. men and men of descent are diagnosed with prostate cancer at higher rates than other men. The reasons for this are not well understood and are likely due to a combination of genetic and environmental factors. What are the signs or symptoms? Symptoms of this condition include: Problems with urination. This may include: ?A weak or interrupted flow of urine. ?Trouble starting or stopping urination. ?Trouble emptying the bladder all the way. ?The need to urinate more often, especially at night. Blood in urine or semen. Persistent pain or discomfort in the lower back, lower abdomen, or hips. Trouble getting an erection. Weakness or numbness in the legs or feet. How is this diagnosed? This condition can be diagnosed with: A digital rectal exam. For this exam, a health care provider inserts a gloved finger into the rectum to feel the prostate gland. A blood test called a prostate-specific antigen (PSA) test. A procedure in which a sample of tissue is taken from the prostate and checked under a microscope (prostate biopsy). An imaging test called transrectal ultrasonography. Once the condition is diagnosed, tests will be done to determine how far the cancer has spread. This is called staging the cancer. Staging may involve imaging tests, such as a bone scan, CT scan, PETscan, or MRI. Stages of prostate cancer The stages of prostate cancer are as follows: Stage 1 (I). At this stage, the cancer is found in the prostate only. The cancer is not visible on imaging tests, and it is usually found by accident, such as during prostate surgery. Stage 2 (II). At this stage, the cancer is more advanced than it is in stage 1, but the cancer has not spread outside the prostate. Stage 3 (III). At this stage, the cancer has spread beyond the outer layer of the prostate to nearby tissues. The cancer may be found in the seminal vesicles, which are near the bladder and the prostate. Stage 4 (IV). At this stage, the cancer has spread to other parts of the body, such as the lymph nodes, bones, bladder, rectum, liver, or lungs. Prostate cancer grading Prostate cancer is also graded according to how the cancer cells look under a microscope. This is called the Aidee score and the total score can range from 6 10, indicating how likely it is that the cancer will spread (metastasize) to other parts of the body. The higher the score, the greater thelikelihood that the cancer will spread. Aidee 6 or lower: This indicates that the cancer cells look similar to normal prostate cells (well differentiated). Virden 7: This indicates that the cancer cells look somewhat similar to normal prostate cells (moderately differentiated). Virden 8, 9, or 10: This indicates that the cancer cells look very different than normal prostate cells (poorly differentiated). How is this treated? Treatment for this condition depends on several factors, including the stage of the cancer, your age, personal preferences, and your overall health. Talk with your health care provider about treatment options that are recommended for you. Common treatments include: Observation for early stage prostate cancer (active surveillance). This involves having exams, blood tests, and in some cases, more biopsies. For some men, this is the only treatment needed. Surgery. Types of surgeries include: ?Open surgery (radical prostatectomy). In this surgery, a larger incision is made to remove the prostate. ?A laparoscopic radical prostatectomy. This is a surgery to remove the prostate and lymph nodes through several small incisions. It is often referred to as a minimally invasive surgery. ?A robotic radical prostatectomy. This is laparoscopic surgery to remove the prostate and lymph nodes with the help of robotic arms that are controlled by the surgeon. ?Cryoablation. This is surgery to freeze and destroy cancer cells. Radiation treatment. Types of radiation treatment include: ?External beam radiation. This type aims beams of radiation from outside the body at the prostate to destroy cancerous cells. ?Brachytherapy. This type uses radioactive needles, seeds, wires, or tubes that are implanted into the prostate gland. Like external beam radiation, brachytherapy destroys cancerous cells. An advantage is that this type of radiation limits the damage to surrounding tissue and has fewer side effects. Chemotherapy. This treatment kills cancer cells or stops them from multiplying. It kills both cancer cells and normal cells. Targeted therapy. This treatment uses medicines to kill cancer cells without damaging normal cells. Hormone treatment. This treatment involves taking medicines that act on testosterone, one of the male hormones, by: ?Stopping your body from producing testosterone. ?Blocking testosterone from reaching cancer cells. Follow these instructions at home: Lifestyle Do not use any products that contain nicotine or tobacco. These products include cigarettes, chewing tobacco, and vaping devices, such as e-cigarettes. If you need help quitting, ask your health careprovider. Eat a healthy diet. To do this: ?Eat foods that are high in fiber. These include beans, whole grains, and fresh fruits and vegetables. ?Limit foods that are high in fat and sugar. These include fried or sweet foods. Treatment for prostate cancer may affect sexual function. If you have a partner, continue to have intimate moments. This may include touching, holding, hugging, and caressing your partner. Get plenty of sleep. Consider joining a support group for men who have prostate cancer. Meeting with a support group mayhelp you learn to manage the stress of having cancer. General instructions Take dluu-wnk-yaizmqg and prescription medicines only as told by your health care provider. If you have to go to the hospital, notify your cancer specialist (oncologist). Keep all follow-up visits. This is important. Where to find more information [place] [employer]: www.cancer.org [place] [employer]: www.cancer.net [employer]: www.cancer.gov Contact a health care provider if: You have new or increasing trouble urinating. You have new or increasing blood in your urine. You have new or increasing pain in your hips, back, or chest. Get help right away if: You have weakness or numbness in your legs. You cannot control urination or your bowel movements (incontinence). You have chills or a fever. Summary The prostate is a small gland that is involved in the production of semen. It is located below a man's bladder, in front of the rectum. Prostate cancer is the abnormal growth of cells in the prostate gland. Treatment for this condition depends on the stage of the cancer, your age, personal preferences, and your overall health. Talk with your health care provider about treatment options that are recommended for you. Consider joining a support group for men who have prostate cancer. Meeting with a support group mayhelp you learn to manage the stress of having cancer. This information is not intended to replace advice given to you by your health care provider. Make sure you discuss any questions you have with your health care provider. Document Revised: 06/25/2021 Document Reviewed: 06/25/2021 [employer] Patient Education 2022 [place]. Follow Up Care 11/13/2022 07:36:35 With:PILLO JOHNSON, Lonnie Nuñez, URL Address: [address] [address]- When: Unknown Comments:w/ Dr. 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 We discussed the implications of low risk prostate cancer and I would like to send for decipher testing as well as path review at [facility]. Should the decipher returned low risk and pathology confirmed Virden 6 disease I favor active surveillance. We will also check a PSA today to help establish a trend. Should the decipher returned intermediate or high risk we discussed the option of active surveillance however patient understands that ultimately he would likely need treatment. In addition showed the path review returned Virden 7 orhigher disease we would also recommend consideration for treatment. For this reason I provided a general overview of radiation and the option of SBRT. We will see him back in approximately 3 weeks to review results and finalize treatment recommendations. HPI Date of Service: 12/07/22 HPI: 62-year-old male presented to urology with an elevated PSA PSA history: Jan 2022 4.17 Apr 2022 4.17 Aug 2022 5.8 ALVINO showed a soft nodule at the left base September 25, 2022 mpMRI showed a focal area of T2 hypointensity in the posterior aspect of the left peripheral zone at the level of the mid gland measuring 1.3 cm with associated restricted diffusion and low ADC. 47 mL gland. October 16, 2022 patient underwent TRUS biopsy with 4 cores returning grade group 1, Aidee 3+3, involving between 4 and 9% of tissue. The region of interest showed 18% of 1 biopsy core involved grade group 1. Today AUA is 21. Patient has nocturia 2-3 times per night he attributes some ofthis to his diabetic medication. He has a sensation of incomplete emptying, frequency, intermittency more than half the time. Quality of life is mostly dissatisfied. MARIEL is 12. He has no family history of prostate or other cancer. [facility] - Medical History Medical History: Medical History (Last Reviewed 10/16/22 @ 12:36 by Porsha Sood RN) Diabetes mellitus type 2 Hypertension Kidney stones Primary cancer of sweat gland 2005 Prostate nodule Skin cancer Urinary frequency urgency - Surgical History Surgical History: Surgical History (Last Reviewed 10/16/22 @ 12:37 by Porsha Sood RN) History of cholecystectomy History of right knee joint replacement - Family History Family History: Family History (Last Reviewed 10/16/22 @ 12:37 by Porsha Sood RN) Mother A-fib Sister A-fib Father Diabetes Brother Colon cancer - Social History Smoking Status: Current some day smoker Tobacco Type: cigars Substance Use Type: None Substance Abuse Comment: RARE Social History Comments: step daughter with multi handicap, sister in law Home Medications & Allergies Allergies Penicillins Allergy (Verified 10/06/22 15:26) Unknown Reaction Home Medications metformin 500 mg tablet 500 mg PO BID #60 tabs 11/23/18 [Rx Confirmed 10/16/22] dapagliflozin propanediol 10 mg tablet (Farxiga) 10 mg PO DAILY 03/01/20 [History Confirmed 10/16/22] ibuprofen 200 mg tablet 800 mg PO Q6H PRN Pain 03/01/20 [History Confirmed 10/16/22] amlodipine 5 mg-olmesartan 40 mg tablet 1 tab PO DAILY 10/06/22 [History Confirmed 10/16/22] ciprofloxacin HCl 500 mg tablet (Cipro) 500 mg PO BID 10/06/22 [History Confirmed 10/16/22] Subjective ROS: I reviewed the 12-point Review of Systems with the patient as per our standard questionnaire. Objective Pain: 0/10 Karnofsky Performance Scale: 90%: Can perform normal activity, minor signs of disease Physical Exam: Physical Exam KPS 90 General: alert and oriented male in no acute distress HEENT: normocephalic, extra ocular movements intact Lungs: normal work of breathing on room air Abdomen: non acute MSK: extremities within normal limits Neuro: grossly intact Dictated By: Kathy Spears MD DD/ 1032 Signed By: <Electronically signed by Kathy Spears MD> 12/08/22 0916 [facility] Work Phone: [phone]) 812-506808-04-2023 Hospital Discharge instructions Patient Education 11/13/2022 07:30:13 Prostate Cancer Prostate Cancer The prostate is a small gland that produces fluid that makes up semen (seminal fluid). It is located below the bladder in men, in front of the rectum. Prostate cancer is the abnormal growth of cells in the prostate gland. What are the causes? The exact cause of this condition is not known. What increases the risk? You are more likely to develop this condition if: You are 65 years of age or older. You have a family history of prostate cancer. You have a family history of breast and ovarian cancer. You have genes that are passed from parent to child (inherited), such as BRCA1 and BRCA2. You have Christian syndrome. men and men of descent are diagnosed with prostate cancer at higher rates than other men. The reasons for this are not well understood and are likely due to a combination of genetic and environmental factors. What are the signs or symptoms? Symptoms of this condition include: Problems with urination. This may include: ?A weak or interrupted flow of urine. ?Trouble starting or stopping urination. ?Trouble emptying the bladder all the way. ?The need to urinate more often, especially at night. Blood in urine or semen. Persistent pain or discomfort in the lower back, lower abdomen, or hips. Trouble getting an erection. Weakness or numbness in the legs or feet. How is this diagnosed? This condition can be diagnosed with: A digital rectal exam. For this exam, a health care provider inserts a gloved finger into the rectum to feel the prostate gland. A blood test called a prostate-specific antigen (PSA) test. A procedure in which a sample of tissue is taken from the prostate and checked under a microscope (prostate biopsy). An imaging test called transrectal ultrasonography. Once the condition is diagnosed, tests will be done to determine how far the cancer has spread. This is called staging the cancer. Staging may involve imaging tests, such as a bone scan, CT scan, PETscan, or MRI. Stages of prostate cancer The stages of prostate cancer are as follows: Stage 1 (I). At this stage, the cancer is found in the prostate only. The cancer is not visible on imaging tests, and it is usually found by accident, such as during prostate surgery. Stage 2 (II). At this stage, the cancer is more advanced than it is in stage 1, but the cancer has not spread outside the prostate. Stage 3 (III). At this stage, the cancer has spread beyond the outer layer of the prostate to nearby tissues. The cancer may be found in the seminal vesicles, which are near the bladder and the prostate. Stage 4 (IV). At this stage, the cancer has spread to other parts of the body, such as the lymph nodes, bones, bladder, rectum, liver, or lungs. Prostate cancer grading Prostate cancer is also graded according to how the cancer cells look under a microscope. This is called the Virden score and the total score can range from 6 10, indicating how likely it is that the cancer will spread (metastasize) to other parts of the body. The higher the score, the greater thelikelihood that the cancer will spread. Aidee 6 or lower: This indicates that the cancer cells look similar to normal prostate cells (well differentiated). Virden 7: This indicates that the cancer cells look somewhat similar to normal prostate cells (moderately differentiated). Aidee 8, 9, or 10: This indicates that the cancer cells look very different than normal prostate cells (poorly differentiated). How is this treated? Treatment for this condition depends on several factors, including the stage of the cancer, your age, personal preferences, and your overall health. Talk with your health care provider about treatment options that are recommended for you. Common treatments include: Observation for early stage prostate cancer (active surveillance). This involves having exams, blood tests, and in some cases, more biopsies. For some men, this is the only treatment needed. Surgery. Types of surgeries include: ?Open surgery (radical prostatectomy). In this surgery, a larger incision is made to remove the prostate. ?A laparoscopic radical prostatectomy. This is a surgery to remove the prostate and lymph nodes through several small incisions. It is often referred to as a minimally invasive surgery. ?A robotic radical prostatectomy. This is laparoscopic surgery to remove the prostate and lymph nodes with the help of robotic arms that are controlled by the surgeon. ?Cryoablation. This is surgery to freeze and destroy cancer cells. Radiation treatment. Types of radiation treatment include: ?External beam radiation. This type aims beams of radiation from outside the body at the prostate to destroy cancerous cells. ?Brachytherapy. This type uses radioactive needles, seeds, wires, or tubes that are implanted into the prostate gland. Like external beam radiation, brachytherapy destroys cancerous cells. An advantage is that this type of radiation limits the damage to surrounding tissue and has fewer side effects. Chemotherapy. This treatment kills cancer cells or stops them from multiplying. It kills both cancer cells and normal cells. Targeted therapy. This treatment uses medicines to kill cancer cells without damaging normal cells. Hormone treatment. This treatment involves taking medicines that act on testosterone, one of the male hormones, by: ?Stopping your body from producing testosterone. ?Blocking testosterone from reaching cancer cells. Follow these instructions at home: Lifestyle Do not use any products that contain nicotine or tobacco. These products include cigarettes, chewing tobacco, and vaping devices, such as e-cigarettes. If you need help quitting, ask your health careprovider. Eat a healthy diet. To do this: ?Eat foods that are high in fiber. These include beans, whole grains, and fresh fruits and vegetables. ?Limit foods that are high in fat and sugar. These include fried or sweet foods. Treatment for prostate cancer may affect sexual function. If you have a partner, continue to have intimate moments. This may include touching, holding, hugging, and caressing your partner. Get plenty of sleep. Consider joining a support group for men who have prostate cancer. Meeting with a support group mayhelp you learn to manage the stress of having cancer. General instructions Take juue-gin-yhmjqlt and prescription medicines only as told by your health care provider. If you have to go to the hospital, notify your cancer specialist (oncologist). Keep all follow-up visits. This is important. Where to find more information [place] [employer]: www.cancer.org [place] [employer] Oncology: www.cancer.net [employer]: www.cancer.gov Contact a health care provider if: You have new or increasing trouble urinating. You have new or increasing blood in your urine. You have new or increasing pain in your hips, back, or chest. Get help right away if: You have weakness or numbness in your legs. You cannot control urination or your bowel movements (incontinence). You have chills or a fever. Summary The prostate is a small gland that is involved in the production of semen. It is located below a man's bladder, in front of the rectum. Prostate cancer is the abnormal growth of cells in the prostate gland. Treatment for this condition depends on the stage of the cancer, your age, personal preferences, and your overall health. Talk with your health care provider about treatment options that are recommended for you. Consider joining a support group for men who have prostate cancer. Meeting with a support group mayhelp you learn to manage the stress of having cancer. This information is not intended to replace advice given to you by your health care provider. Make sure you discuss any questions you have with your health care provider. Document Revised: 06/25/2021 Document Reviewed: 06/25/2021 [employer] Patient Education 2022 [employer]. Follow Up Care 10/16/2022 15:05:11 With:PILLO JOHNSON, Lonnie Nuñez, URL Address: [address] [place], [place] [id number]- When:Within 4 Week(s) [facility] 05-09-2023 Evaluation + Plan note Diagnostic Tests Pending * PSA Free & Total 08/18/22 [facility] 05-09-2023 Hospital Discharge instructions Patient Education 08/18/2022 07:38:55 Prostate Cancer Screening Prostate Cancer Screening Prostate cancer screening is testing that is done to check for the presence of prostate cancer in men. The prostate gland is a walnut-sized gland that is located below the bladder and in front of therectum in males. The function of the prostate is to add fluid to semen during ejaculation. Prostatecancer is one of the most common types of cancer in men. Who should have prostate cancer screening? Screening recommendations vary based on age and other risk factors, as well as between the professional organizations who make the recommendations. In general, screening is recommended if: You are age 50 to 70 and have an average risk for prostate cancer. You should talk with your healthcare provider about your need for screening and how often screening should be done. Because most prostate cancers are slow growing and will not cause , screening in this age group is generally reserved for men who have a 10- to 15-year life expectancy. You are younger than age 50, and you have these risk factors: ?Having a father, brother, or uncle who has been diagnosed with prostate cancer. The risk is higherif your family member's cancer occurred at an early age or if you have multiple family members withprostate cancer at an early age. ?Being a male who is Black or is of Ari[place] or sub-Saharan descent. In general, screening is not recommended if: You are younger than age 40. You are between the ages of 40 and 49 and you have no risk factors. You are 70 years of age or older. At this age, the risks that screening can cause are greater than the benefits that it may provide. If you are at high risk for prostate cancer, your health care provider may recommend that you have screenings more often or that you start screening at a younger age. How is screening for prostate cancer done? The recommended prostate cancer screening test is a blood test called the prostate-specific antigen(PSA) test. PSA is a protein that is made in the prostate. As you age, your prostate naturally produces more PSA. Abnormally high PSA levels may be caused by: Prostate cancer. An enlarged prostate that is not caused by cancer (benign prostatic hyperplasia, or BPH). This condition is very common in older men. A prostate gland infection (prostatitis) or urinary tract infection. Certain medicines such as male hormones (like testosterone) or other medicines that raise testosterone levels. A rectal exam may be done as part of prostate cancer screening to help provide information about the size of your prostate gland. When a rectal exam is performed, it should be done after the PSA level is drawn to avoid any effect on the results. Depending on the PSA results, you may need more tests, such as: A physical exam to check the size of your prostate gland, if not done as part of screening. Blood and imaging tests. A procedure to remove tissue samples from your prostate gland for testing (biopsy). This is the only way to know for certain if you have prostate cancer. What are the benefits of prostate cancer screening? Screening can help to identify cancer at an early stage, before symptoms start and when the cancer can be treated more easily. There is a small chance that screening may lower your risk of dying from prostate cancer. The chance is small because prostate cancer is a slow-growing cancer, and most men with prostate cancer from a different cause. What are the risks of prostate cancer screening? The main risk of prostate cancer screening is diagnosing and treating prostate cancer that would never have caused any symptoms or problems. This is called overdiagnosisand overtreatment. PSA screening cannot tell you if your PSA is high due to cancer or a different cause. A prostate biopsy is the only procedure to diagnose prostate cancer. Even the results of a biopsy may not tell you if your cancer needs to be treated. Slow-growing prostate cancer may not need any treatment other than monitoring, so diagnosing and treating it may cause unnecessary stress or other side effects. Questions to ask your health care provider When should I start prostate cancer screening? What is my risk for prostate cancer? How often do I need screening? What type of screening tests do I need? How do I get my test results? What do my results mean? Do I need treatment? Where to find more information The [place] [employer]: www.cancer.org [place] [employer]: www.auanet.org Contact a health care provider if: You have difficulty urinating. You have pain when you urinate or ejaculate. You have blood in your urine or semen. You have pain in your back or in the area of your prostate. Summary Prostate cancer is a common type of cancer in men. The prostate gland is located below the bladder and in front of the rectum. This gland adds fluid to semen during ejaculation. Prostate cancer screening may identify cancer at an early stage, when the cancer can be treated more easily and is less likely to have spread to other areas of the body. The prostate-specific antigen (PSA) test is the recommended screening test for prostate cancer, butit has associated risks. Discuss the risks and benefits of prostate cancer screening with your health care provider. If you are age 70 or older, the risks that screening can cause are greater than the benefits that it may provide. This information is not intended to replace advice given to you by your health care provider. Make sure you discuss any questions you have with your health care provider. Document Revised: 09/22/2021 Document Reviewed: 09/22/2021 [employer] Patient Education 2022 [employer]. Follow Up Care 05/22/2022 13:28:50 With:PILLO JOHNSON, Lonnie Nuñez, URL Address: [address] [place] [address] [place] [phone]- When: Unknown [facility] [place] [id number] Evaluation + Plan noteExtracted from: Title:ED Note Author:Maeve Ang DO Date :07/30/21 Laceration of head (S01.91XA : Laceration without foreign body of unspecified part of head, initial encounter) Orders: tetanus/diphtheria/pertussis, acel (Tdap), 0.5 mL, Injection, Intramuscular-Immunization, Once, Stop date 07/30/21 0:22:00 EDT, STAT, Start date 07/30/21 0:22:00 EDT [facility]04-20-2022 Hospital Discharge instructions Patient Education 07/30/2021 00:47:31 Sutures, Jordi, or Adhesive Wound Closure, Ftby-qj-Smdy Sutures, [place], or Adhesive Wound Closure Doctors use stitches (sutures), jordi, and glue (skin adhesives) to hold your skin together whileit heals (wound closure). What your doctor uses depends on your wound. In most cases, your wound will be closed right away (primary skin closure). Sometimes it may be closed later so that it can be cleaned and then heal naturally (delayed wound closure). What are the types of wound closure? Adhesive glue To use adhesive glue, your doctor: ?Holds the edges of the wound together. ?Paints the glue onto your skin. You may need more than one layer. ?Covers your wound with a bandage (dressing) after the glue is dry. Adhesive glue may be used for: ?Wounds that are not deep (superficial wounds). ?Wounds on the face. ?Children's wounds. Adhesive glue is not used inside of wounds, or on wounds that are: ?Deep. ?Uneven. ?Bleeding. Some benefits of adhesive glue are: ?It leaves nothing that needs to be removed. ?You do not need medicine to numb the area. ?You have less pain than with other types of closure. Adhesive strips Adhesive strips are: Made of paper that is sticky (adhesive) and has many small holes it in (porous). Placed across your wound edges, like a normal bandage. Used to close very shallow wounds. Sometimes used with sutures to help improve closure. Sutures Sutures come in many different materials, strengths, and sizes. Some sutures break down as your wound heals (absorbable). Other sutures need to be removed (nonabsorbable). To use sutures, your doctor: Sews your skin together with sutures and a needle. May use one long (continuous) stitch or separate stitches. Ties and cuts the sutures at the end. Sutures can be used for all types of wounds, including under the skin. They can cause a skin reaction that can lead to infection. Jordi [place] are often used to close surgical cuts (incisions). To use jordi, your doctor: Holds the edges of your wound close together. Places a staple across the wound. Uses a tool to secure the staple to the skin. Repeats this with as many jordi as needed. Jordi are faster to use than sutures, and they cause less reaction from your skin. [place] need to be removed using a tool that bends the jordi away from your skin. Follow these instructions at home: Medicines Take fytd-qci-jdcamlk and prescription medicines only as told by your doctor. If you were prescribed an antibiotic medicine, take it as told by your doctor. Do not stop taking the antibiotic even if you start to feel better. Wound care Follow instructions from your doctor about how to take care of your wound and bandage. Wash your hands with soap and water before and after touching your wound or bandage. If you cannot use soap and water, use hand ict systems test engineer. Do not try to remove your wound closures unless your doctor tells you to do that. You may need a follow-up visit for your doctor to remove your closures. ?Closures may stay in place for 2 weeks or longer. ?Absorbable sutures may break down after a few days or weeks. ?If adhesive strip edges start to loosen and curl up, you may trim the loose edges. Do not pick at your wound. Picking can cause an infection. Apply ointments or creams only as told by your doctor. Check your wound every day for signs of infection. Check for: ?Redness, swelling, or pain. ?Fluid or blood. ?Warmth. ?Pus or a bad smell. General instructions Do not take baths, swim, or use a hot tub until your doctor approves. Ask your doctor if you may take showers. You may only be allowed to take sponge baths. Do not soak your wound in water. Keep all follow-up visits as told by your doctor. This is important. Contact a doctor if you: Have any of the following: ?A fever. ?Chills. ?Redness, swelling, or pain around your wound. ?Fluid or blood coming from your wound. ?Pus or a bad smell coming from your wound. Notice that your wound feels warm to the touch. Notice that the edges of your wound start to separate after your sutures come out. Notice that your wound becomes thick, raised, and darker in color after your sutures come out (scarring). Summary What your doctor uses to hold your skin together while it heals (wound closure) depends on your wound. Your doctor may use stitches (sutures), jordi, and glue (skin adhesives). Do not try to remove your wound closures unless your doctor tells you to do that. Do not soak your wound in water. This information is not intended to replace advice given to you by your health care provider. Make sure you discuss any questions you have with your health care provider. Document Released: 01/24/2010 Document Revised: 03/11/2018 Document Reviewed: 02/03/2018 [employer] Patient Education 2020 [employer]. Follow Up Care 07/29/2021 22:52:43 With:Tomasz CIFUENTES Address: [address], [facility] [place] [address]- Business (1) When:08/02/2021 Comments:Keep the wound clean and dry for the next 24 hours after you can wash with soap and water. Do not apply any ointments or lotions to the glue as it will dissolve the glue faster. Please follow-up withyour primary care doctor next 2 to 3 days. Please return to the ED for any new or worsening symptoms. [facility] Appointment Date:11/13/2022 07:15:00 AM Scheduled Provider:Lonnie ARDON MD Location:Critical access hospital Appointment Type:URO Office Visit [facility] Evaluation + Plan note Future Appointments Appointment Date:12/15/2022 02:30:00 PM Scheduled Provider:Lonnie ARDON MD Location:Critical access hospital Appointment Type:URO Office Visit [facility] Evaluation + Plan note Future Appointments Appointment Date:02/08/2023 12:45:00 PM Scheduled Provider:Chana Perez MD Location:[facility] Appointment Type:URO Office Visit [facility] Evaluation + Plan note Future Appointments Appointment Date:03/08/2023 07:30:00 AM Scheduled Provider: Location[facility] Appointments Appointment Date:03/22/2023 01:00:00 PM Scheduled Provider:Chana Perez MD Location:[facility] Appointment Type:URO Office Visit [facility] Evaluation + Plan note Future Appointments Appointment Date:03/22/2023 09:00:00 AM Scheduled Provider[facility] Genital/Urinary Procedures (FT) Appointment Date:03/22/2023 01:00:00 PM Scheduled Provider:Chana Perez MD Location:[facility] Appointment Type:URO Office Visit Future Scheduled Tests Radiology* XR Cystography Minimum 3 Views 03/22/23 [facility] Evaluation + Plan note Future Appointments Appointment Date:03/29/2023 02:15:00 PM Scheduled Provider:Chana Perez MD Location:[facility] Appointment Type:URO Office Visit [facility] Evaluation + Plan note Future Appointments Appointment Date:04/28/2023 09:45:00 AM Scheduled Provider:Chana Perez MD Location:[facility] Appointment Type:URO Office Visit Future Scheduled Tests Laboratory* PSA Total 04/12/23 [facility] Evaluation + Plan note Future Appointments Appointment Date:04/28/2023 09:45:00 AM Scheduled Provider:Chana Perez MD Location:[facility] App[facility]ments Appointment Date:08/02/2023 09:30:00 AM Scheduled Provider:Lonnie ARDON MD Location:Critical access hospital Appointment Type:URO Office Visit Future Scheduled Tests Laboratory* PSA Total 04/28/23 [facility] Evaluation noteNo assessment information available [facility] Work Phone: Evaluation note* Diagnosis Onset Date Resolution Status Prostate cancer acute [facility] Work Phone: Hospital course Narrative No data available for this section [facility] No data available for this section [facility] Hospital Discharge instructionsAmbulatory Orders* Oncology Histology Time Frame: 1 Day, Location: Determined By Patient [facility] Work Phone: Progress note No data available for this section [facility] Reason for referral (narrative) Referred by: Lonnie ARDON MD [facility] Advance Directives No Advanced Directives Records Found Advance Directive Response Recorded Date/ Time Advance Directives No December 02, 2017 12:36pm Advance Directive Response Recorded Date/ Time Advance Directives No December 02, 2017 1:36pm Chief Complaint and Reason for Visit Chief Complaint r97.20 Chief Complaint r97.20 Elevated PSA Chief Complaint r97.20 Elevated PSA Elevated PSA prostate cancer Reason for Visit Prostate cancer Chief Complaint r29.898 Family History No Family History Records Found Relationship Condition Age at Onset Recorded Date/T mayo Not Specified Atrial fibrillation Unknown sister Atrial fibrillation Unknown father Diabetes mellitus Unknown brother Malignant neoplasm of colon Unknown Summary Purpose Reason for Referral Referred by: Chris JOHNSON, Chana Singh Additional Source Comments Care Teams (unrecognized sec tion and content) Team Status: Inactive Member Role Status Dates Wood Sood MD Attending Provider Active Team Status: Active Member Role Status Dates Lorraine Reynolds DO Primary Care Provider Active Team Status: Inactive Member Role Status Dates Lonnie Ardon MD Attending Provider Active Lorraine Reynolds DO Primary Care Provider Active Team Status: Inactive Member Role Status Dates Lorraine Reynolds DO Primary Care Provider Active Lonnie Ardon MD Attending Provider Active Team Status: Active Member Role Status Dates Lorraine Reynolds DO Primary Care Provider Active Kathy Spears MD Attending Provider Active Lonnie Ardon MD Referring Provider Active Team Status: Inactive Member Role Status Dates Lorraine Reynolds DO Primary Care Provider Active Start: June 01, 2023 End: June 01, 2023 Vick Weiner DO Attending Provider Active Start: June 01, 2023 End: June 01, 2023 Goals (unrecognized section and content) Goals may be documented in a n alternate section (unrecognized sect ion and content) No Status Records FoundNo Status Records FoundNo Status Records Found INFORMATION SOURCE (unrecogn ized section and content) DATE CREATED AUTHOR 03/20/2023 [facility] DATE CREATED AUTHOR AUTHOR'S ORGANIZ ATION 05/19/2023 [facility] DATE CREATED AUTHOR AUTHOR'S ORGANIZ ATION 06/09/2023 [facility] FOR RECORDS PERTAINING TO PATIENTS WHO ARE OR HAVE BEEN ENROLLED IN A CHEMICAL DEPENDENCY/SUBSTANCEABUSE PROGRAM, SOME INFORMATION MAY BE OMITTED. This clinical summary was aggregated from multiple sources. Caution should be exercised in using it in the provision of clinical care. This summary normalizes information from multiple sources, and as a consequence, information in this document may materially change the coding, format and clinical context of patient data. In addition, data may be omitted in some cases. CLINICAL DECISIONS SHOULD BE BASED ON THE PRIMARY CLINICAL RECORDS. [facility]. provides no warranty or guarantee of the accuracy or completeness of information in this document.
== END 2023-06-21 19:54 | disposition home or self-care (01) ==
LOC: SLEEP 19:54
PROVIDERS: PCP Psychiatry & Neurology Neurology; Visit Provider Psychiatry & Neurology Neurology
DX: G47.33 Obstructive sleep apnea (adult) (pediatric) (principal)
CPT/HCPCS: 95811